=== PATIENT | female | born 1940 | race Caucasian/White ===

== ENCOUNTER → 2019-06-01 | Outpatient (CLI) | payer MEDICARE, SELFPAY | PROVIDERS: PCP Internal Medicine; Visit Provider Internal Medicine | DX: M54.5 Low back pain (principal); M53.3 Sacrococcygeal disorders, not elsewhere classified | CPT/HCPCS: 77002; 20610; Q9966 ==

== ENCOUNTER 2020-01-31 10:38 | Outpatient (CLI) | payer MEDICARE, SELFPAY ==
--- NOTE | ~2020-01-31 | XR_ITS ---
EXAMINATION: XR shoulder LT min 2V EXAM DATE: 01/31/2020 11:01 INDICATION: Shoulder pain, symptoms for years. States fall in 2018. TECHNIQUE: The following left shoulder projections obtained: frontal projection with internal rotatio n, frontal projection with external rotation, Grashey, and scapular Y view (4+ views). Comparison is made to prior examination from 08/21/2018. FINDINGS: No evidence of left shoulder rotator cuff calcific tendinosis. There is moderate glenohume ral, mild acromioclavicular primary osteoarthritis. Sizable bony productive change along the inferio r margin humeral head articular surface. There are no acute fractures or dislocations identified. Th ere is no subcutaneous gas. The soft tissue is unremarkable. There are no radiopaque foreign lizet s. There is no significant interval change. IMPRESSION: Moderate left glenohumeral, mild acromioclavicular joint osteoarthritis. Reviewed, dictated and finalized at location A. IMPRESSION: Moderate left glenohumeral, mild acromioclavicular joint osteoarthr itis.
== END 2020-01-31 10:39 | disposition home or self-care (01) ==
PROVIDERS: PCP Internal Medicine; Visit Provider Internal Medicine
DX: M25.512 Pain in left shoulder (principal)
CPT/HCPCS: 73030

== ENCOUNTER 2020-02-07 14:48 | Outpatient (CLI) | payer MEDICARE, SELFPAY ==
--- NOTE | 2020-02-07 15:15 | ECG_ITS ---
Measurements Intervals [place] Rate: 64 P: 69 VT: 181 QRS: -49 QRSD: 102 T: 73 QT: 417 QTc: 432 Interpretive Statements SINUS RHYTHM LEFT ANTERIOR FASCICULAR BLOCK NONSPECIFIC T-WAVE ABNORMALITY- LATERAL LEADS ABNORMAL ECG Electronically Signed On 02-07-2020 17:14:53 CDT by Andrews Mondragon D.O.
--- NOTE | 2020-03-09 12:04 | WPDHOLTEREM ---
Holter/Event Monitor Holter/Event Monitor Date of procedure: 02/07/20 Procedure Type: 30 day event monitor Indications: Palpitations Conclusion: 1. 30 day event monitor between 02/07/20-03/07/20 There are 35 available transmissions for analysis. 2. Predominant rhythm is sinus rhythm. HR range 50-124 bpm; average HR 74 bpm. 3. There are occasional premature supraventricular complexes with total burden <1%. No supraventricular tachycardia. 4. There are occasional premature ventricular complexes with total burden <1%. There is one episode of ventricular tachycardia at 124 bpm lasting 25 seconds on 02/13/20 at 20:00. 5. No significant pauses greater than 2 seconds. 6. Patient reports 2 episodes of symptoms of lightheadedness and symptom other than listed which demonstrate sinus rhythm at 68-78 bpm.
== END 2020-02-07 14:49 | disposition home or self-care (01) ==
PROVIDERS: PCP Internal Medicine; Visit Provider Internal Medicine
DX: R00.2 Palpitations (principal); I10 Essential (primary) hypertension
CPT/HCPCS: 93005; 93270

== ENCOUNTER 2020-02-15 13:30 | Outpatient (CLI) | payer MEDICARE, SELFPAY ==
--- NOTE | ~2020-02-15 | MM_ITS ---
EXAMINATION: MM screening jennifer BI w anaid HISTORY: Screening mammogram TECHNIQUE: Craniocaudal and mediolateral oblique 3-D tomosynthesis images were obtained and synthetic 2-D images were generated. CAD analysis was submitted and interpreted. COMPARISON: 12/10/2018, 11/05/2017, 10/08/2016 bilateral digital screening mammogram examinations BREAST PARENCHYMAL COMPOSITION: The breasts are heterogeneously dense, which may obscure small masses . FINDINGS: Multiple bilateral benign calcifications. There is no evidence of suspicious mass, calcific ation, or architectural distortion to suggest malignancy in either breast. There has been no suspicio us interval change. IMPRESSION: 1. No mammographic evidence of malignancy. 2. Recommend routine screening mammography in one year. BI-RADS Category 2: Benign finding(s). Reviewed, dictated and finalized at location A.
== END 2020-02-15 13:31 | disposition home or self-care (01) ==
PROVIDERS: PCP Internal Medicine; Visit Provider Internal Medicine
DX: Z12.31 Encounter for screening mammogram for malignant neoplasm of breast (principal)
CPT/HCPCS: 77063; 77067

== ENCOUNTER 2020-02-16 10:30 | Outpatient (CLI) | payer MEDICARE, SELFPAY ==
--- NOTE | 2020-02-16 10:30 | ECHO_ITS ---
Patient Info Name: Ros Carrasco Age: 79 years : 1940 Gender: Female Ht: 66 in Wt: 185 lbs BSA: 2.00 m2 HR: 66 bpm BP: 155 / 86 mmHg Heart Rhythm: Sinus Rhythm Technical Quality: Good Exam Date: 02/16/2020 10:50 AM Exam Location: [facility] Patient Status: Outpatient Admit Date: 02/16/2020 Staff Ordering Physician: Xiao Hanley MD Automotive Service Writer: Rica Mtz RDCS Attending Provider: Xiao Hanley MD Referring Physician: Talon MÁRQUEZ; Exam Type: CA echo doppler color flow Study Info Indications R00.2 - Palpitations I10 - Essential (primary) hypertension Complete two-dimensional, color flow and Doppler transthoracic echocardiogram is performed. Strain analysis performed. History/Risk Factors Hypertension: Yes Dyslipidemia: No Congenital Heart Disease (CHD): No Peripheral Arterial Disease (PAD): No Myocardial Infarction (VT): No Chronic Lung Disease: No Obesity: No Renal Disease: No Coronary Artery Disease (CAD) No Congestive Heart Failure (CHF): No Cardiomyopathy/LV Systolic Dysfunction: No Diabetes Mellitus: No COPD: No Tobacco Use: Never Cerebrovascular Disease: No Family History: Coronary Artery Disease Deep Vein Thrombosis (DVT): None Dialysis: None Frailty Scale (CSHA): 2: Well Cardiac Arrest: No Prior Interventions Pacemaker: No PCI: No CABG: No Valve Surgery: No ICD: No PV Intervention: None Heart Transplant: No Summary 1. Left ventricular chamber dimension is normal. 2. Left ventricular systolic function is normal, estimated at 60-65%. 3. There is mildly increased left ventricular wall thickness. 4. The left ventricular diastolic function is grade I diastolic dysfunction. 5. E/e' 16 is elevated. 6. Global longitudinal strain is normal at -18.0%. 7. Left atrial chamber dimension is mildly enlarged. Left Ventricle E/e' 16 is elevated. Global longitudinal strain is normal at -18.0%. Left ventricular chamber dimension is normal. Left ventricular systolic function is normal, estimated at 60-65%. There is mildly increased left ventricular wall thickness. The left ventricular diastolic function is grade I diastolic dysfunction. Right Ventricle Right ventricular chamber dimension is normal. Right ventricular systolic function is normal. Left Atria Left atrial chamber dimension is mildly enlarged. Right Atria Right atrial chamber dimension is normal. Aortic Valve The aortic valve is trileaflet. There is no aortic valve stenosis. There is no aortic valve regurgitation. Pulmonic Valve There is no pulmonic regurgitation. Mitral Valve There is no mitral valve stenosis. There is no mitral valve regurgitation. Tricuspid Valve There is no tricuspid valve regurgitation. Pericardium/Pleural There is no pericardial effusion. Inferior Vena Cava Normal inferior vena cava with >50% collapse upon inspiration consistent with normal right atrial pressure, 5 mmHg. Aorta The aortic root size at the sinus of Valsalva is normal. Left Ventricular Outflow Tract Name Value Normal LVOT 2D LVOT Diameter
[2020-02-16 11:23] LABS: Hemoglobin A1C 6.1 % (<5.7)
[2020-02-16 11:34] LABS: Alanine Aminotransferase 29 U/L (14-59); Albumin Level 3.7 g/dL (3.4-5.0); Alkaline Phosphatase 91 U/L (46-116); Anion Gap 14.7 mmol/L (7-16); Aspartate Amino Transferase 20 U/L (15-37); Bilirubin,Total 0.7 mg/dL (0.00-1.00); Blood Urea Nitrogen 16 mg/dL (7-18); Calcium 9.2 mg/dL (8.5-10.1); Carbon Dioxide 27 mmol/L (21-32); Chloride 101 mmol/L (98-108); Cholesterol 237 mg/dL (0-200); Estimated Glomerular Filt Rate > 60; Glucose 93 mg/dL (70-99); HDL Direct 59 mg/dL (40-60); LDL Cholesterol Calculated 146 mg/dL (<130); Osmolality Calculated 287 mOsm/kg (285-295); Potassium 4.7 mmol/L (3.5-5.1); Sodium 138 mmol/L (136-145); Total Protein 7.3 g/dL (6.4-8.2); Triglycerides 160 mg/dL (0-150)
[2020-02-19 11:49] LABS: Vitamin D 25 Hydroxy 22 ng/mL (30-100)
== END 2020-02-16 10:31 | disposition home or self-care (01) ==
PROVIDERS: PCP Internal Medicine; Visit Provider Internal Medicine
DX: R73.01 Impaired fasting glucose (principal); E55.9 Vitamin D deficiency, unspecified; E78.2 Mixed hyperlipidemia; R00.2 Palpitations; I10 Essential (primary) hypertension
CPT/HCPCS: 36415; 80053; 80061; 82306; 83036; 93306

== ENCOUNTER 2020-03-20 07:55 | Outpatient (CLI) | payer MEDICARE, SELFPAY ==
--- NOTE | 2020-03-20 | EST_ITS ---
Patient Info Name: Ros Carrasco Age: 79 years : 1940 Gender: Female Ht: 66 in Wt: 179 lbs BSA: 1.97 m2 Exam Date: 03/20/2020 10:34 AM Exam Location: [facility] Stress Patient Status: Outpatient Admit Date: 03/20/2020 Staff Ordering Physician: Andrews Mondragon DO Attending Provider: Andrews Mondragon DO Exercise Technologist: Lisa Hooper RDCS Exercise Physician: Andrews Mondragon DO Exam Type: CA stress suraj w NM Study Info Indications I47.2 - Ventricular tachycardia A regadenoson stress test was performed. History/Risk Factors Hypertension: Yes Dyslipidemia: No Congenital Heart Disease (CHD): No Peripheral Arterial Disease (PAD): No Myocardial Infarction (ND): No Chronic Lung Disease: No Obesity: No Renal Disease: No Coronary Artery Disease (CAD) No Congestive Heart Failure (CHF): No Cardiomyopathy/LV Systolic Dysfunction: No Diabetes Mellitus: No COPD: No Tobacco Use: Never Cerebrovascular Disease: No Family History: Coronary Artery Disease Deep Vein Thrombosis (DVT): None Dialysis: None Frailty Scale (CSHA): 2: Well Cardiac Arrest: No Prior Interventions Pacemaker: No PCI: No CABG: No Valve Surgery: No ICD: No PV Intervention: None Heart Transplant: No Summary 1. 1. Negative lexiscan stress test for ischemic ST changes by ECG criteria. 2. 2. Baseline hypertension. 3. 3. Nuclear scan to follow and will be reported separately. Please correlate with it. 4. 4. Patient informed of the above results. Protocol: Lexiscan Stress ECG Details Stage: REST Duration (min): 10 min : 42 sec HR (bpm): 57 SBP (mmHg): 170 DBP (mmHg): 73 Stage: REST Duration (min): 15 min : 1 sec HR (bpm): 59 SBP (mmHg): 155 DBP (mmHg): 71 Stage: STAGE 1 Duration (min): 0 min : 59 sec HR (bpm): 79 SBP (mmHg): 169 DBP (mmHg): 78 Stage: RECOVERY Duration (min): 1 min : 0 sec HR (bpm): 85 SBP (mmHg): 164 DBP (mmHg): 76 Stage: RECOVERY Duration (min): 2 min : 0 sec HR (bpm): 76 SBP (mmHg): 164 DBP (mmHg): 76 Stage: RECOVERY Duration (min): 3 min : 0 sec HR (bpm): 76 SBP (mmHg): 165 DBP (mmHg): 74 Stage: RECOVERY Duration (min): 3 min : 6 sec HR (bpm): 74 SBP (mmHg): 165 DBP (mmHg): 74 Rest HR: 59 bpm Peak HR: 87 bpm Rest Sys BP: 155 mmHg Peak Sys BP: 169 mmHg Max Pred HR: 139 bpm % Max Pred HR: 63 % Target HR: 118 bpm Max RPP: 14,703 bpm*mmHg Termination Reason: Completed protocol Cardiac Symptoms: Shortness of breath, Stomach discomfort Total Time: 1 min : 0 sec Rest Ventura BP: 71 mmHg Peak Ventura BP: 78 mmHg Total Dose: 0.4 mg Resting ECG Sinus rhythm, PRWP, borderline T wave abnormalty in diffuse leads. Stress ECG No ST changes. Arrhythmias None. Report Signatures
--- NOTE | ~2020-03-20 | NM_ITS ---
EXAMINATION: NM suraj stress w perfusion DATE: 03/20/2020 13:46 INDICATION: Ventricular tachycardia. TECHNIQUE: Rest images were obtained following intravenous administration of 9.1 mCi Tc99m tetrofosmi n (Myoview). The patient was infused intravenously with Lexiscan (regadenoson). Then, 28.6 mCi Tc99m tetrofosmin (Myoview) was administered intravenously, and stress images were obtained. Data was recon structed into short axis and horizontal and vertical long axis SPECT images. Gated SPECT images were also obtained. COMPARISON: None. FINDINGS: There is no definite reversible or fixed perfusion abnormality to suggest ischemia or infar ction. There is no segmental wall motion abnormality. Left ventricular ejection fraction measures > 70%. IMPRESSION: 1. No definite ischemia or infarct. 2. Normal left ventricular ejection fraction measuring >70%. Reviewed, dictated and finalized at location A.
== END 2020-03-20 07:56 | disposition home or self-care (01) ==
PROVIDERS: PCP Internal Medicine; Visit Provider Internal Medicine Cardiovascular Disease
DX: I47.2 Ventricular tachycardia (principal); I10 Essential (primary) hypertension
CPT/HCPCS: 78452; 93017; A9502; J2785

== ENCOUNTER 2020-05-03 01:33 | Outpatient (CLI) | payer MEDICARE, SELFPAY ==
[2020-05-03 19:20] LABS: SARS-CoV-2 RNA PCR Negative
== END 2020-05-03 01:34 | disposition home or self-care (01) ==
LOC: ANHCOVIDDT 01:33
PROVIDERS: PCP Internal Medicine; Visit Provider Internal Medicine Critical Care Medicine
DX: R09.89 Other specified symptoms and signs involving the circulatory and respiratory systems (principal); Z20.828 Contact with and (suspected) exposure to other viral communicable diseases
CPT/HCPCS: 87635; C9803; U0003

== ENCOUNTER 2020-05-05 07:47 | Outpatient (CLI) | payer MEDICARE, SELFPAY ==
--- NOTE | 2020-05-29 06:15 | SLEEP_ITS ---
Split-night Sleep Study DATE OF STUDY: 05/05/2020 ORDERING PHYSICIAN: Andrews Mondragon D.O. REASON FOR STUDY: Loud snoring, concerned related to atrial fibrillation. HISTORY: This patient is an 79-year-old female, 66 inches tall, weighing 184 pounds with a body mass index of 29.7. She reports that she snores very loudly. She wore a monitor at one point, which suggested sleep apnea and Dr. Mondragon wanted her to be tested. She does have a positive family history with her brother having a diagnosis of sleep apnea. She constantly snores loud enough that others complain about it. She does not awaken at night with heartburn, belching, or coughing. She rarely awakens from sleep feeling short of breath. She rarely has trouble sleeping with a cold, never gasps for breath at night, never has breathing problems at night reported to her by others, rarely sweats excessively at night and rarely notices her heart pounding or beating irregularly at night. She frequently falls asleep during the day; however, never involuntarily, or while driving. She does not fall asleep with physical effort. She does not have loss of muscle tone with strong emotion, does not have daytime difficulties due to excessive sleepiness and does not feel paralyzed on waking or falling asleep. She rarely has vivid dreamlike scenes upon awakening or falling asleep. She is never afraid to go to sleep. She does not have nightmares. She rarely remembers her dreams. She does not have racing thoughts, feelings of sadness, depression or anxiety. She occasionally has muscular tension. She rarely notices parts of her body jerking. She does not kick at night. She does not have crawly achy feelings in her legs. She rarely has leg pain at night. She does not have morning jaw pain. She does not grind her teeth at night. She frequently is bothered by pain during the day, rarely is awakened by pain at night, occasionally wakes up feeling stiff in the morning, frequently with sore achy muscles, occasionally with pain in the neck and spine. She is retired. She recently started medications for high blood pressure. She also recently has had diarrhea. Normal bedtime is 09:00 p.m., she uses her phone for an hour or so before falling asleep. She will wake at night 2 or 3 times, go urinate and drink water, stay awake for a few minutes. She falls asleep and wakes in the morning around 6:00 a.m. Her nighttime awakenings occur in the middle of the night and the rehabilitation technician hours. She naps in the afternoon and a short nap may be refreshing. Her sleep is at times disrupted by shoulder tear. She is not planning to have surgery. MEDICAL COMORBIDITIES: Hypertension, paroxysmal atrial fibrillation, and nonsustained ventricular tachycardia. MEDICATIONS: 1. Apixaban 5 mg p.o. b.i.d. 2. Carvedilol 3.125 mg q.12 hours. 3. Vitamin D3 125 mcg daily. 4. Acetaminophen 325 mg q.6 hours p.r.n. pain. HABITS: Quit tobacco 40 years ago. Caffeine, 1 cup per day. Alcohol 6-8 ounces a day. No recreational drugs. DESCRIPTION OF THE STUDY: On the [place] Sleepiness Scale, her score is 8. This test was conducted as a split night attended nocturnal polysomnogram using the [place] multiple channel system including EOG, EEG, submental EMG, EKG, nasal and oral airflow using thermistors and nasal pressure sensors, chest and abdominal belts, body position data and pulse oximetry. The study was scored using CMS guidelines. The diagnostic duration was 164.1 minute, sleep time 121.9 minutes. Sleep efficiency was 74.3%. Sleep latency was prolonged at 35.6 minutes. REM latency was 74.5 minutes. There were 10 awakenings and she spent 6.5 minutes awake after sleep onset. Sleep architecture showed 8.2% stage 1 sleep, 80.7% stage 2 sleep, no sta
== END 2020-05-05 07:48 | disposition home or self-care (01) ==
LOC: ANHCSM 07:47
PROVIDERS: PCP Internal Medicine; Visit Provider Internal Medicine Cardiovascular Disease
DX: G47.10 Hypersomnia, unspecified (principal); U07.1 COVID-19; I48.0 Paroxysmal atrial fibrillation; I47.2 Ventricular tachycardia; I10 Essential (primary) hypertension
CPT/HCPCS: 95811

== ENCOUNTER 2020-07-05 08:02 | Outpatient (RCR) | payer MEDICARE, SELFPAY ==
--- NOTE | 2020-07-05 09:27 | PTOPEVAL ---
Thank you for referring Ros Carrasco to [facility].? The patient is scheduled to be seen for therapy? ____x/week for ___ weeks. Please review, sign, date and return this plan of care NEHEMIAH. I agree with and certify that the following plan of care is medically necessary. Referring Physician Date Admitting Provider: Attending Provider: Xiao Hanley MD Referring Provider: *PT Outpatient Evaluation Start: 07/05/20 08:05 Freq: Status: Active Protocol: Document 07/05/20 08:05 [facility] (Rec: 07/05/20 09:27 [facility] [email or web address]) Therapy Assessment Status Assessment Status Assessment Status Evaluation Evaluation Information Problem Diagnosis L shoulder pain, frozen shoulder Onset 07/03/20 Additional Evaluation Detail quick dash = 31% functionally declined Subjective Information patient reports she has pain Query Text:As Reported By Patient/ in the L shoulder. she reports Family she has been having xie in the shoulder for years. however, she reports the pain has been increased for the past few months. she reports she has decreased ROM of the L shoulder. she reports difficulty reaching up to grab the door handle to get in the house. she reports she has had a cortizone shot in the past. she reports no other shots recently. Prior Level of Function Comments Additional Prior Level of Function patient reports declining Comments mobility and strength in the L shoulder impacting her daily performance of activities including shopping, opneing doors, and performing cleaning around her house. Pain Assessment Timing of Pain Assessment Timing of Pain Assessment Assessment Pain Scale Pain Scale Used Numeric (1 - 10) Self Report Pain Assessment Left Shoulder(s) Reported Pain Level 0 Lowest Pain Intensity 0 Greatest Pain Intensity 7 Pain Score Pain Score 0: Self Report Interventions Used Interventions Used By Clinicians Education,Electrical Stimulation,Exercise,Heat Upper Extremity Range of Motion Scapular/ Shoulder Range of Motion Left Shoulder Flexion - Active 90 Shoulder Flexion - Passive 140 Shoulder Medial Rotation -
--- NOTE | 2020-10-17 06:52 | PCPTNOTE ---
Pt. attended a total of 9 treatment sessions from 07/05/20 to 08/14/20. She has failed to return to the clinic and will be discharged from our care at this time. Esteban Jacinto, MPT
== END 2020-08-14 23:59 | disposition home or self-care (01) ==
LOC: CHSPT 08:02
PROVIDERS: PCP Internal Medicine; Visit Provider Internal Medicine
DX: M25.512 Pain in left shoulder (principal); M75.02 Adhesive capsulitis of left shoulder
CPT/HCPCS: 97014; 97110; 97140; 97161; G0283

== ENCOUNTER 2021-02-01 09:06 | Outpatient (CLI) | payer MEDICARE, SELFPAY ==
--- NOTE | ~2021-02-01 | XR_ITS ---
EXAMINATION: XR chest 2V 02/01/2021 09:42 INDICATION: Hypertension. PROCEDURE: 2 view chest COMPARISON: No prior studies for comparison. FINDINGS: The lungs are clear. The cardiomediastinal silhouette is within normal limits. There are no pleural effusions. There is no pneumothorax suspected. Mild scoliosis. IMPRESSION: 1: NO ACUTE CARDIOPULMONARY DISEASE. Reviewed, dictated and finalized at location B.
[2021-02-01 09:22] LABS: Basophils Absolute Auto 0.04 K/mm3 (0.00-0.10); Basophils Percent Auto 0.5 % (0.0-1.0); Eosinophils Absolute Auto 0.09 K/mm3 (0.02-0.50); Eosinophils Percent Auto 1.1 % (1.0-6.0); Hematocrit 39.9 % (35.0-42.0); Hemoglobin 13.4 g/dL (11.7-13.8); Immature Granulocyte Absolute 0.03 K/mm3 (0.00-0.00); Immature Granulocyte Percent A 0.4 % (0.0-0.0); Lymphocytes Absolute Auto 2.08 K/mm3 (1.10-4.50); Lymphocytes Percent Auto 26.5 % (18.0-42.0); Mean Corpuscular HGB Conc 33.6 g/dL (32.0-36.0); Mean Corpuscular Hemoglobin 31.8 pg (27.0-31.0); Mean Corpuscular Volume 94.8 fL (78.0-102.0); Mean Platelet Volume 8.4 fl (9.2-11.8); Monocytes Absolute Auto 0.69 K/mm3 (0.10-0.90); Monocytes Percent Auto 8.8 % (2.0-11.0); Neutrophils Absolute Auto 4.9 K/mm3 (1.7-7.2); Neutrophils Percent Auto 62.7 % (50.0-70.0); Platelet Count Result 233 K/mm3 (150-420); Red Blood Count 4.21 M/mm3 (4.20-5.40); White Blood Count 7.8 K/mm3 (4.8-10.8)
[2021-02-01 09:23] LABS: Appearance Urine Clear (Clear); Bilirubin Urine Negative (Negative); Blood Urine Negative (Negative); Glucose Urine UA Negative (Negative); Ketones Urine Negative (Negative); Leukocyte Esterase Ur 1+ (Negative); Nitrate Urine Negative (Negative); Protein Urine Negative (Negative); Urobilinogen Urine 0.2 mg/dL (0.2-1.0); pH Urine 5.5 (5.0-8.0)
[2021-02-01 09:28] LABS: Add Urine Microscopic? YES; Color Urine Light Yellow (Yellow); RBC Urine 0-2 /hpf (0-2)
[2021-02-01 09:29] LABS: Bacteria Urine 1+ /hpf; Squamous Epithelial Cell Urine Few /hpf (Few); WBC Urine 0-3 /hpf (0-3)
--- NOTE | 2021-02-01 09:30 | ECG_ITS ---
Measurements Intervals [place] Rate: 54 P: 47 [place]: 186 QRS: -28 QRSD: 105 T: -40 QT: 448 QTc: 426 Interpretive Statements SINUS BRADYCARDIA DELAYED PRECORDIAL R/S TRANSITION ST-T WAVE ABNORMALITY IN ANTEROLATERAL LEADS- CONSIDER ISCHEMIA BASELINE ARTIFACT- II, III, V3 ABNORMAL ECG Electronically Signed On 02-01-2021 10:19:36 CDT by Andrews Mondragon D.O.
[2021-02-01 09:33] LABS: Hemoglobin A1C 5.8 % (<5.7)
[2021-02-01 10:07] LABS: Alanine Aminotransferase 30 U/L (14-59); Albumin Level 3.9 g/dL (3.4-5.0); Alkaline Phosphatase 81 U/L (46-116); Anion Gap 10 mmol/L (8-16); Aspartate Amino Transferase 17 U/L (15-37); Bilirubin,Total 0.8 mg/dL (0.00-1.00); Blood Urea Nitrogen 17 mg/dL (7-18); Calcium 9.4 mg/dL (8.5-10.1); Carbon Dioxide 26 mmol/L (21-32); Chloride 99 mmol/L (98-108); Estimated Glomerular Filt Rate > 60; Glucose 102 mg/dL (70-99); Osmolality Calculated 281 mOsm/kg (285-295); Potassium 4.1 mmol/L (3.5-5.1); Sodium 135 mmol/L (136-145); Total Protein 7.4 g/dL (6.4-8.2)
== END 2021-02-01 09:07 | disposition home or self-care (01) ==
LOC: CHSLAB 09:08
PROVIDERS: PCP Internal Medicine; Visit Provider Internal Medicine
DX: K25.7 Chronic gastric ulcer without hemorrhage or perforation (principal); I10 Essential (primary) hypertension; E78.2 Mixed hyperlipidemia; R73.01 Impaired fasting glucose; R53.82 Chronic fatigue, unspecified
CPT/HCPCS: 36415; 71046; 80053; 81001; 83036; 85025; 93005

== ENCOUNTER 2021-02-05 14:16 | Outpatient (CLI) | payer MEDICARE, SELFPAY ==
--- NOTE | 2021-02-05 14:28 | ECG_ITS ---
Measurements Intervals [place] Rate: 61 P: 62 ID: [id number] QRS: -41 QRSD: 113 T: 46 QT: 421 QTc: 426 Interpretive Statements SINUS RHYTHM LEFT AXIS DEVIATION DELAYED PRECORDIAL R/S TRANSITION NONSPECIFIC T-WAVE ABNORMALITY- LATERAL LEADS BORDERLINE ECG Electronically Signed On 02-05-2021 15:02:27 CDT by Andrews Mondragon D.O.
[2021-02-05 16:05] LABS: Cholesterol 187 mg/dL (0-200); HDL Direct 67 mg/dL (40-60); LDL Cholesterol Calculated 90 mg/dL (<130); Triglycerides 150 mg/dL (0-150)
== END 2021-02-05 14:17 | disposition home or self-care (01) ==
LOC: CHSCARD 14:19
PROVIDERS: PCP Internal Medicine; Visit Provider Internal Medicine Cardiovascular Disease
DX: E78.5 Hyperlipidemia, unspecified (principal); Z01.810 Encounter for preprocedural cardiovascular examination
CPT/HCPCS: 36415; 80061; 93005

== ENCOUNTER 2021-03-05 10:02 | Outpatient (RCR) | payer MEDICARE, SELFPAY ==
--- NOTE | 2021-03-05 11:13 | PTOPEVAL ---
Thank you for referring Ros Carrasco to [facility].? The patient is scheduled to be seen for therapy? __2__x/week for 12 visits. Please review, sign, date and return this plan of care NEHEMIAH. I agree with and certify that the following plan of care is medically necessary. 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 reports that she underwent Query Text:As Reported By Patient/ RTSA on 02/13/21. Pt. has not Family used a sling since 1 week post op. She reports that pain is mild and is not taking pain medication. She is not doing any lifting with the left arm. She is avoiding placing her arm behind her back. She reports that her goal is to gain normal arm strength and mobility. Prior Level of Function Activity Level (Last 3 Months) Occupation retired Hand Dominance Right Activity of Daily Living Ability Independent Indoor/Home Mobility Independent Community Mobility Independent Stairs Ability Independent Functional Cognition (Planning, Shopping Independent , Taking Medications) Cooking Yes Cleaning Yes Laundry Yes Shopping Yes Driving Yes Pain Assessment Timing of Pain Assessment Timing of Pain Assessment Pre-Treatment Pain Scale Pain Scale Used Numeric (1 - 10) Self Report Pain Assessment Left Shoulder(s) Reported Pain Level 1 Pain Description Aching Pain Score Pain Score 1: Self Report Interventions Used Interventions Used By Clinicians Electrical Stimulation, Exercise,Ice Upper Extremity Range of Motion General Upper Extremity Range of Motion Gross Upper Extremity Range of Motion -PROM shoulder flexion 112 Comments degrees -PROM shoulder ER at 20 degrees abduction 35 degrees Upper Extremity Muscle Stren
--- NOTE | 2021-04-12 10:47 | PTOPEVAL ---
Thank you for referring Ros Carrasco to [facility].? The patient is scheduled to be seen for therapy? __1__x/week for 3 visits. Please review, sign, date and return this plan of care NEHEMIAH. I agree with and certify that the following plan of care is medically necessary. Referring Physician Date Admitting Provider: Attending Provider: Gerard Ham, Referring Provider: *PT Outpatient Evaluation Start: 03/05/21 10:05 Freq: Status: Active Protocol: Document 04/12/21 09:13 GUL[facility]AN (Rec: 04/12/21 10:46 GUL[facility] [email or web address]) Therapy Assessment Status Assessment Status Assessment Status Progress Evaluation Information Problem Diagnosis left reverse total shoulder replacement Subjective Information Pt. reports that she is not Query Text:As Reported By Patient/ experiencing pain. She is Family pleased with her mobility, but states that she continues to refrain from any lifting with the left u.e. Pt. reports that she would like to continue therapy in order to improve her strength. Pain Assessment Timing of Pain Assessment Timing of Pain Assessment Pre-Treatment Self Report Self Report Pain Level 0 Pain Score Pain Score 0: Self Report Upper Extremity Range of Motion General Upper Extremity Range of Motion Gross Upper Extremity Range of Motion -left shoulder flexion AROM Comments 131 degrees -left shoulder ER AROM 78 degrees -left shoulder IR AROM 50 degrees Upper Extremity Muscle Strength Testing General Upper Extremity Strength Gross Upper Extremity Strength Comments -left shoulder flexion 3+/5 -left shoulder ER 3/5 -left shoulder IR 4/5 General Exercise General Exercises Exercise Description -pulleys x 3 minutes Query Text:Record Sets, Reps, -variable isometric flexion, Resistance, and Position extension, ER and IR x 12 reps x 5 second holds -bilateral shoulder retraction with resistance green tubing x 25 to neutral -passive stretching into shoulder flexion, IR, and ER x 10 minutes -supine RS at the left shoulder x 1 minute x 2 -supine shoulder flexion AROM
--- NOTE | 2021-05-02 09:51 | PTOPEVAL ---
Thank you for referring Ros Carrasco to [facility].? The patient is scheduled to be seen for therapy? ____x/week for ___ weeks. Please review, sign, date and return this plan of care NEHEMIAH. I agree with and certify that the following plan of care is medically necessary. Referring Physician Date Admitting Provider: Attending Provider: Gerard Ham, Referring Provider: *PT Outpatient Evaluation Start: 03/05/21 10:05 Freq: Status: Active Protocol: Document 05/02/21 08:[address] [facility] (Rec: 05/02/21 09:[address] [facility] [email or web address]) Therapy Assessment Status Assessment Status Assessment Status Discharge Evaluation Information Problem Diagnosis left reverse total shoulder replacement Onset 02/13/21 Additional Evaluation Detail quck dash = 9% functionally declined Subjective Information patient reports she feels Query Text:As Reported By Patient/ good this date. she reports Family no pain in the L shoulder. she reports she has been compliant and consistent with her HEP at home daily. she reports she is back to tending her garden without limitation . Pain Assessment Timing of Pain Assessment Timing of Pain Assessment Assessment Self Report Self Report Pain Level 0 Pain Score Pain Score 0: Self Report Upper Extremity Range of Motion General Upper Extremity Range of Motion Gross Upper Extremity Range of Motion -left shoulder flexion AROM Comments 142 degrees -left shoulder ER AROM 80 degrees -left shoulder IR AROM 50 degrees functional reach behind head to lower cervical spine functional reach behind back to the ipsilateral pocket Upper Extremity Muscle Strength Testing General Upper Extremity Strength Gross Upper Extremity Strength Comments -left shoulder flexion 4/5 -left shoulder ER 4-/5 -left shoulder IR 4/5 General Exercise General Exercises Exercise Description -jordan 5 minutes Query Text:Record Sets, Reps, -shoulder rows x 25 green Resistance, and Position -bilateral shoulder extension with scapular depression x 25 green -resisted left shoulder ER x 25 green
== END 2021-05-02 10:26 | disposition home or self-care (01) ==
LOC: CHSPT 10:02
PROVIDERS: PCP Internal Medicine; Visit Provider Orthopaedic Surgery
DX: Z47.89 Encounter for other orthopedic aftercare (principal); Z96.612 Presence of left artificial shoulder joint
CPT/HCPCS: 97014; 97110; 97161; G0283

== ENCOUNTER 2021-03-27 08:27 | Outpatient (CLI) | payer MEDICARE, SELFPAY ==
--- NOTE | ~2021-03-27 | MM_ITS ---
EXAMINATION: MM screening jennifer BI w anaid HISTORY: Screening TECHNIQUE: Craniocaudal and mediolateral oblique 3-D tomosynthesis images were obtained and synthetic 2-D images were generated. CAD analysis was submitted and interpreted. COMPARISON: Comparison to multiple prior studies sequentially, with oldest reviewed study dated 01/04. BREAST PARENCHYMAL COMPOSITION: Breast composed of scattered areas of fibroglandular density. FINDINGS: There are developing asymmetries in the upper outer quadrant of the left breast which are s lightly more prominent than on prior studies. The right breast is stable without evidence for maligna ncy. There are benign breast calcifications. IMPRESSION: 1. Developing left breast asymmetries. 2. Additional spot compression and mediolateral views with possible follow-up breast ultrasound recom mended. BI-RADS Category 0: Incomplete: Needs additional imaging evaluation. Reviewed, dictated and finalized at location A. IMPRESSION: 1. Developing left breast asymmetries. 2. Additional spot compression and mediolateral views with possible follow-up b reast ultrasound recommended. BI-RADS Category 0: Incomplete: Needs additional imaging evaluation.
== END 2021-03-27 08:28 | disposition home or self-care (01) ==
LOC: CHSIMG 08:28
PROVIDERS: PCP Internal Medicine; Visit Provider Internal Medicine
DX: Z12.31 Encounter for screening mammogram for malignant neoplasm of breast (principal)
CPT/HCPCS: 77063; 77067

== ENCOUNTER 2021-03-29 09:54 | Outpatient (CLI) | payer MEDICARE, SELFPAY ==
--- NOTE | ~2021-03-29 | MMUS_ITS ---
EXAMINATION: MM diagnostic jennifer LT w anaid, US breast LT limited HISTORY: Follow-up left breast asymmetries TECHNIQUE: Additional 3-D tomosynthesis images of the left breast were performed and synthetic 2-D im ages were generated. CAD analysis was submitted and interpreted. High resolution Limited left breast ultrasound was performed. COMPARISON: 03/27/2021 BREAST PARENCHYMAL COMPOSITION: Breast composed of scattered areas of fibroglandular density. FINDINGS: MAMMOGRAPHIC FINDINGS: There are multiple masses/asymmetries centered in the lateral aspect of the left breast which are sec ured by dense overlying fibroglandular tissue. There are benign left breast calcifications. ULTRASOUND: Limited left breast ultrasound: At 12:00 there is an oval hypoechoic mass with internal echogenicity measuring 6 mm, likely benign intramammary lymph node. Recommend follow-up left breast ultrasound in 6 months to assess stability of this mass. At 1:00, 2 cm from the nipple, there is a slightly irregul ar shaped hypoechoic mass with mixed posterior attenuation measuring up to 6 mm. At 3:00, 7 cm from t he nipple there is a 2 mm cyst. IMPRESSION: 1. Slightly irregular shaped hypoechoic left breast mass at 1:00, 2 cm from the nipple. 2. Ultrasound-guided left breast biopsy recommended. BI-RADS category 4, suspicious findings. Reviewed, dictated and finalized at location A. IMPRESSION: 1. Slightly irregular shaped hypoechoic left breast mass at 1:00, 2 cm from the nipple. 2. Ultrasound-guided left breast biopsy recommended. BI-RADS category 4, suspicious findings.
== END 2021-03-29 09:55 | disposition home or self-care (01) ==
LOC: CHSIMG 09:55
PROVIDERS: PCP Internal Medicine; Visit Provider Internal Medicine
DX: R92.8 Other abnormal and inconclusive findings on diagnostic imaging of breast (principal)
CPT/HCPCS: 76642; 77061; 77065; G0279

== ENCOUNTER 2021-08-06 08:50 | Outpatient (CLI) | payer MEDICARE, SELFPAY ==
--- NOTE | ~2021-08-06 | DEXA_ITS ---
Bone Density Report Name: THAI WOODARD Age: 81 Sex: Female Ethnicity: White Date of : 1940 Indication: postmenopausal; screening for osteoporosis; height loss; Referring Provider: Xiao Hanley Study: Bone densitometry was performed. Exam Date: August 06, 2021 Accession number: [id number] Bone Density: Region BMD T-score Z-score Classification AP Spine(L1, L2, L3) 0.953 -0.6 2.1 Normal Femoral Neck (Left) 0.731 -1.1 1.4 Osteopenia Total Hip (Left) 0.832 -0.9 1.3 Normal Femoral Neck (Right) 0.697 -1.4 1.1 Osteopenia Total Hip (Right) 0.830 -0.9 1.3 Normal Femoral Neck Mean 0.714 -1.2 1.2 Osteopenia Total Hip Mean 0.831 -0.9 1.3 Normal World Health Organization criteria for BMD impression classify patients as: Normal (T-score at or above -1.0), Osteopenia (T-score between -1.0 and -2.5), or Osteoporosis (T-score at or below -2.5). 10-year Fracture Risk(1): Major Osteoporotic Fracture 12% Hip Fracture 3.0% Reported Risk Factors: [place] (), Neck BMD=0.697, BMI=30.8 (1) FRAX(R) Version 3.08. Fracture probability calculated for an untreated patient. Fracture probability may be lower if the patient has received treatment. Clinical Information Provided by Patient: Has used the following medications: HRT (i.e. estrogen/hormone therapy), Vitamin D Patient maximum height was 66 Menopause Age: 48 No regular weight bearing exercise Drinks caffeinated beverages Onset of menses at age 9 Number of children 0 Impression: The patient has low bone mass, based on the Right Femoral Neck T-score. Discussion: BONE DENSITY IS LOW AT ONE OR MORE SKELETAL SITES. This patient's lowest T-score is low at one or more skeletal sites. It meets the World Health Organization's (WHO) criteria for ?low bone mass? (T-score between -1.0 and -2.5). The patient's 10-year risk of fracture as calculated by FRAX is less than the threshold where pharmacological therapy is recommended by the National Osteoporosis Foundation (NOF). However, all treatment decisions require clinical judgment and consideration of individual patient factors, including patient preferences, comorbidities, previous drug use, risk factors not captured in the FRAX model (e.g., frailty, falls, vitamin D deficiency, increased bone turnover, interval significant decline in bone density) and possible under or overestimation of fracture risk by FRAX. The patient should follow a healthful lifestyle (good nutrition with adequate calcium and vitamin D, and appropriate weight-bearing exercise). Follow-Up: Consider repeating this study in 2 to 3 years to reassess this patient's status, or sooner if there is some new clinical indication. Reported by: Dr. Reynaldo Cruz on 08/06/2021 10:47:00 AM.
== END 2021-08-06 08:51 | disposition home or self-care (01) ==
LOC: CHSIMG 08:51
PROVIDERS: PCP Internal Medicine; Visit Provider Internal Medicine
DX: M81.0 Age-related osteoporosis without current pathological fracture (principal)
CPT/HCPCS: 77080

== ENCOUNTER 2022-01-28 09:54 | Outpatient (CLI) | payer MEDICARE, SELFPAY | END 2022-01-28 09:55 | disposition home or self-care (01) | PROVIDERS: PCP Internal Medicine; Visit Provider Internal Medicine | DX: R42 Dizziness and giddiness (principal) | CPT/HCPCS: 99199 ==

== ENCOUNTER 2022-02-05 12:39 | Outpatient (CLI) | payer MEDICARE, SELFPAY ==
--- NOTE | ~2022-02-05 | US_ITS ---
EXAMINATION: US carotid duplex BI DATE: 02/05/2022 14:25 INDICATION: Vertigo and dizziness. TECHNIQUE: Grayscale, color Doppler, and pulsed Doppler images of the cervical carotid arteries were obtained. The degree of vessel stenosis is placed in one of the following categories: normal, <50%, 5 0-69%, >=70% but less than near-occlusion, near-occlusion, or total occlusion. Note that percent sten osis relative to normal distal artery lumen diameter is indirectly measured from velocity measurement s as described by John, et al. Radiology 2003; 229:340-346. COMPARISON: None. FINDINGS: RIGHT: The right common carotid artery (CCA) peak systolic velocity (PSV) is 89 cm/s. The right internal car otid artery (ICA) PSV is 134 cm/s. The right ICA end-diastolic velocity (EDV) is 26 cm/s. The right I CA/CCA PSV ratio is 1.5. Grayscale and color Doppler images including secondary Doppler criteria yiel d an estimate of <50% diameter reduction from plaque in the ICA. The external carotid artery (ECA) PS V is 113 cm/s. There is antegrade flow in the right vertebral artery. LEFT: The left CCA PSV is 92 cm/s. The left ICA PSV is 109 cm/s. The left ICA EDV is 30 cm/s. The left ICA/ CCA PSV ratio is 1.2. Grayscale and color Doppler images yield an estimate of <50% diameter reduction from plaque in the ICA. The ECA PSV is 107 cm/s. There is antegrade flow in the left vertebral arter y. IMPRESSION: 1. <50% stenosis in the right internal carotid artery. 2. <50% stenosis in the left internal carotid artery. Reviewed, dictated and finalized at location A.
== END 2022-02-05 12:40 | disposition home or self-care (01) ==
LOC: CHSIMG 12:41
PROVIDERS: PCP Internal Medicine; Visit Provider Internal Medicine
DX: R42 Dizziness and giddiness (principal)
CPT/HCPCS: 93880

== ENCOUNTER 2022-02-09 10:52 | Outpatient (CLI) | payer MEDICARE, SELFPAY ==
--- NOTE | ~2022-02-09 | MR_ITS ---
EXAMINATION: MR brain/brain stem wo con DATE: 02/09/2022 12:19 INDICATION: Dizziness. TECHNIQUE: Magnetic resonance imaging (MRI) of the brain and brainstem was performed without intraven ous contrast. COMPARISON: None. FINDINGS: There are scattered areas of nonspecific increased T2-weighted signal intensity in the cere bral white matter. There is no intracranial hemorrhage, acute infarction, or abnormal intracranial ma ss lesion. The ventricles are normal in size. There is mild mucosal thickening in the paranasal sinus es. There are likely changes of ocular lens replacement surgeries. The mastoid air cells are normal. IMPRESSION: 1. Moderate nonspecific cerebral white matter disease, which likely represents chronic small vessel i schemic disease. Reviewed, dictated and finalized at location A. IMPRESSION: 1. Moderate nonspecific cerebral white matter disease, which likely represents chronic small vessel ischemic disease.
== END 2022-02-09 10:53 | disposition home or self-care (01) ==
LOC: CHSIMG 10:54
PROVIDERS: PCP Internal Medicine; Visit Provider Internal Medicine
DX: R42 Dizziness and giddiness (principal)
CPT/HCPCS: 70551

== ENCOUNTER 2022-03-05 13:57 | Outpatient (RCR) | payer MEDICARE, SELFPAY ==
--- NOTE | 2022-03-05 14:50 | PTOPEVAL ---
Thank you for referring Ros Carrasco to [facility][Note 3].? The patient is scheduled to be seen for therapy? __2__x/week for 10 visits. Please review, sign, date and return this plan of care NEHEMIAH. I agree with and certify that the following plan of care is medically necessary. Referring Physician Date Admitting Provider: Attending Provider: Xiao Hanley MD Referring Provider: *PT Outpatient Evaluation Start: 03/05/22 14:10 Freq: Status: Active Protocol: Document 03/05/22 14:10 [facility] (Rec: 03/05/22 14:49 [facility] [email or web address]) Therapy Assessment Status Assessment Status Assessment Status Evaluation Evaluation Information Problem Diagnosis hip pain, impaired balance Onset 01/03/22 Subjective Information Pt. reports a couple months Query Text:As Reported By Patient/ ago she developed pain in the Family right low back. She reports pain is now radiating into the buttock. She reports that standing for long periods of time will increase her pain. She denies any recent xray. She states that she has felt that her balance has been a little impaired, but is getting better. She reports that the pain in her buttock is a bigger problem than her balance. She denies any recent falls. She reports that her goal for therapy is to reduce the pain in her hip and feel more steady when walking. Prior Level of Function Activity Level (Last 3 Months) Occupation retired Hand Dominance Right Activity of Daily Living Ability Independent Indoor/Home Mobility Independent Community Mobility Independent Stairs Ability Independent Functional Cognition (Planning, Shopping Independent , Taking Medications) Cooking Yes Cleaning Yes Laundry Yes Shopping Yes Driving Yes Pain Assessment Pain Scale Pain Scale Used Numeric (1 - 10) Self Report Pain Assessment Right Buttock(s) Reported Pain Level 6 Greatest Pain Intensity 7 Pain Aggravating Factors Sitting,Walking,Weight Bearing /Standing Pain Score Pain Score
== END 2022-04-08 15:28 | disposition home or self-care (01) ==
LOC: CHSPT 13:57
PROVIDERS: PCP Internal Medicine; Visit Provider Internal Medicine
DX: M25.551 Pain in right hip (principal); R42 Dizziness and giddiness; R26.9 Unspecified abnormalities of gait and mobility
CPT/HCPCS: 97014; 97110; 97140; 97161; G0283

== ENCOUNTER 2022-10-02 12:34 | Outpatient (CLI) | payer MEDICARE, SELFPAY ==
--- NOTE | ~2022-10-02 | DEXA_ITS ---
Bone Density Report Name: THAI WOODARD Age: 82 Sex: Female Ethnicity: White Date of : 1940 Indication: postmenopausal; screening for osteoporosis; parental hip fracture; height loss; Referring Provider: Xiao Hanley Study: Bone densitometry was performed. Exam Date: October 02, 2022 Accession number: [id number] Bone Density: Region BMD T-score Z-score Classification AP Spine(L1, L2, L4) 1.019 -0.1 2.7 Normal Femoral Neck (Left) 0.701 -1.3 1.2 Osteopenia Total Hip (Left) 0.848 -0.8 1.5 Normal Femoral Neck (Right) 0.691 -1.4 1.1 Osteopenia Total Hip (Right) 0.849 -0.8 1.5 Normal Femoral Neck Mean 0.696 -1.4 1.1 Osteopenia Total Hip Mean 0.849 -0.8 1.5 Normal World Health Organization criteria for BMD impression classify patients as: Normal (T-score at or above -1.0), Osteopenia (T-score between -1.0 and -2.5), or Osteoporosis (T-score at or below -2.5). 10-year Fracture Risk(1): Major Osteoporotic Fracture 22% Hip Fracture 13% Reported Risk Factors: [place] (), Neck BMD=0.691, BMI=31.8, parental fracture (1) FRAX(R) Version 3.08. Fracture probability calculated for an untreated patient. Fracture probability may be lower if the patient has received treatment. Clinical Information Provided by Patient: Parent has had a hip fracture Has used the following medications: HRT (i.e. estrogen/hormone therapy), Vitamin D Patient maximum height was 66 Menopause Age: 47 No regular weight bearing exercise Drinks caffeinated beverages Onset of menses at age 9 Number of children 0 Impression: The patient has low bone mass, based on the Right Femoral Neck T-score. The patient has risk factors, including: parental hip fracture. Discussion: BONE DENSITY IS LOW AT ONE OR MORE SKELETAL SITES. This patient's lowest T-score is low at one or more skeletal sites. It meets the World Health Organization's (WHO) criteria for ?low bone mass? (T-score between -1.0 and -2.5). The patient's 10-year risk of fracture as calculated by FRAX is less than the threshold where pharmacological therapy is recommended by the National Osteoporosis Foundation (NOF). However, all treatment decisions require clinical judgment and consideration of individual patient factors, including patient preferences, comorbidities, previous drug use, risk factors not captured in the FRAX model (e.g., frailty, falls, vitamin D deficiency, increased bone turnover, interval significant decline in bone density) and possible under or overestimation of fracture risk by FRAX. The patient should follow a healthful lifestyle (good nutrition with adequate calcium and vitamin D, and appropriate weight-bearing exercise). Follow-Up: Consider repeating this study in 2 to 3 years to reassess this patie
== END 2022-10-02 12:35 | disposition home or self-care (01) ==
LOC: CHSIMG 12:37
PROVIDERS: PCP Internal Medicine; Visit Provider Internal Medicine
DX: Z78.0 Asymptomatic menopausal state (principal); M85.89 Other specified disorders of bone density and structure, multiple sites
CPT/HCPCS: 77080

== ENCOUNTER 2023-01-15 08:18 | Outpatient (CLI) | payer MEDICARE, SELFPAY ==
--- NOTE | ~2023-01-15 | CT_ITS ---
EXAMINATION: CT sinus wo con DATE: 01/15/2023 08:41 INDICATION: Chronic sinusitis TECHNIQUE: Computed tomography (CT) of the paranasal sinuses was performed without intravenous contra st. The dose-length product was 286.08 mGy-cm. Automated exposure control and iterative reconstructio n technique were employed. COMPARISON: None FINDINGS: There is mucosal thickening of the maxillary, ethmoid, sphenoid and frontal sinuses. Rightw kelly nasal septal deviation. Ostiomeatal units are patent. Mastoids are pneumatized. IMPRESSION: 1. Moderate pansinusitis. Reviewed, dictated and finalized at location B. IMPRESSION: 1. Moderate pansinusitis.
== END 2023-01-15 08:19 | disposition home or self-care (01) ==
LOC: CHSIMG 08:19
PROVIDERS: PCP Internal Medicine; Visit Provider Internal Medicine
DX: J32.4 Chronic pansinusitis (principal)
CPT/HCPCS: 70486

== ENCOUNTER 2023-06-03 12:00 | Outpatient (CLI) | payer MEDICARE, SELFPAY ==
[2023-06-03 12:18] VITALS: BP 136/67; PULSE 68; RESP 14; TEMP 36.6; O2SAT 100; BMI 32.5
[2023-06-03] MEDS: DENOSUMAB 60 MG/ML SYRINGE SUB-Q (12:39)
--- NOTE | 2023-06-03 12:45 | PC.NURSE ---
Patient here for Prolia injection. Education given. All concerns answered. Prolia injection administered. See MAR. Tolerated well. Safe exit of hospital per self/ambulatory.
== END 2023-06-03 12:01 | disposition home or self-care (01) ==
LOC: CHSTREATRM 12:05
PROVIDERS: PCP Internal Medicine; Visit Provider Internal Medicine
DX: M81.0 Age-related osteoporosis without current pathological fracture (principal)
CPT/HCPCS: 96372; J0897

== ENCOUNTER 2023-10-01 13:48 | Outpatient (CLI) | payer MEDICARE, SELFPAY ==
--- NOTE | ~2023-10-01 | MM_ITS ---
EXAMINATION: MM screening jennifer BI w anaid HISTORY: Screening mammogram TECHNIQUE: Craniocaudal and mediolateral oblique 3-D tomosynthesis images were obtained and synthetic 2-D images were generated. CAD analysis was submitted and interpreted. COMPARISON: 03/29/2021 diagnostic left mammogram and limited left breast ultrasound 03/27/2021, 02/15/2020, 12/10/2018 bilateral screening mammogram examinations BREAST PARENCHYMAL COMPOSITION: There are scattered areas of fibroglandular density. FINDINGS: Chronic stable fibroglandular asymmetry. Multiple bilateral benign calcifications are again noted. There is no evidence of suspicious mass, calcification, or architectural distortion to sugges t malignancy in either breast. There has been no suspicious interval change. IMPRESSION: 1. Benign findings. No mammographic evidence of malignancy. 2. Recommend routine screening mammography in one year. BI-RADS Category 2: Benign finding(s). Reviewed, dictated and finalized at location A. OLIDS MANAGEMENT TECHNICIAN
== END 2023-10-01 13:49 | disposition home or self-care (01) ==
PROVIDERS: PCP Internal Medicine; Visit Provider Internal Medicine
DX: Z12.31 Encounter for screening mammogram for malignant neoplasm of breast (principal)
CPT/HCPCS: 77063; 77067

== ENCOUNTER 2023-12-18 08:41 | Outpatient (CLI) | payer MEDICARE, SELFPAY ==
[2023-12-18] MEDS: DENOSUMAB 60 MG/ML SYRINGE SUB-Q (08:56)
--- NOTE | 2023-12-18 08:56 | PC.NURSE ---
Patient here for Prolia shot. Tolerated well to right upper arm sub q, band aid applied. Denies any questions. Left floor ambulatory.
== END 2023-12-18 08:42 | disposition home or self-care (01) ==
PROVIDERS: PCP Internal Medicine; Visit Provider Internal Medicine
DX: M81.0 Age-related osteoporosis without current pathological fracture (principal)
CPT/HCPCS: 96372; J0897

== ENCOUNTER 2024-10-20 12:16 | Outpatient (CLI) | payer MEDICARE, SELFPAY ==
--- NOTE | ~2024-10-20 | MM_ITS ---
EXAMINATION: MM screening [facility] BI w anaid HISTORY: Screening mammogram TECHNIQUE: Craniocaudal and mediolateral oblique 3-D tomosynthesis images were obtained and synthetic 2-D images were generated. CAD analysis was submitted and interpreted. COMPARISON: 10/01/2023, 03/29/2021, 03/27/2021 BREAST PARENCHYMAL COMPOSITION:Not Dense. There are scattered areas of fibroglandular density. FINDINGS: No suspicious mass, calcification, or architectural distortion are identified in either xenia ast to suggest malignancy. There has been no suspicious interval change. IMPRESSION: No mammographic evidence of malignancy. Recommend routine screening mammography in one year. BI-RADS Category 1: Negative Reviewed, dictated and finalized at location . MBLY MACHINE FEEDER
--- OUTSIDE RECORDS SUMMARY | 2024-10-20 13:52 | XMS_ITS | Data Portability ---
Author Organization [facility], [address] [facility] ([place]) Address [address] [place] [address] Care Team Providers Care Service Dispatcher Name Role Phone SENG PERSAUD Primary Care Provider [phone] Assessment Encounter Date Assessment Date Assessment LastModified by Organization Details LastModified Time 06/29/2024 06/29/2024 Ros Carrasco was seen today for hearing aid issue. Resound links [phone] on the left and [phone] on the right medium power domes Both are out of warranty Last hearing test August 07, 2022. Today's appointment she stated the left mold tooling technician was not functioning. Visual inspection showed it to be hanging on by a thread. Nickel Plant Operator was replaced. Hearing aids were returned to patient. There was a $75 charge for the mold tooling technician. RECOMMENDATION S: 1. Patient paid $75 upfront for the replacement mold tooling technician. 2. Patient will contact me regarding getting upgraded hearing aid technology and setting up an appointment for hearing test and hearing aid fitting. Not available 06/29/2024 15:25:26 Plan of Treatment Reminders Order Date Submit Date Provider Last Modified By Organization Details Last Modified Time Details Appointments Establis hed Patient 30.EST 2024 02:00P M Jinny Maillet Not available Not available Not available Lab None recorded . Referral None recorded . Procedures None recorded . Surgeries None recorded . Imaging None recorded . Medication Orders None recorded . Patient TargetsNo targets recorded. Patient InstructionsNo instructions recorded. Reason for Referral None Reported. Problems Name Problem SNOMED Code Status Onset Date Resolution Date Notes Provider Name and Address Organization Details Recorded Time Sensorineural hearing loss of bilateral ears [id number] Active 2023 Jinny Gan, AuD [address] [place] [address], [id number] , [place] [facility] 15:23:59 Problem Notes None recorded. Procedures Surgical History Date Name Laterality Status Provider Name and Address Organization Details Recorded Time Colonoscopy with biopsy completed Not Available Health Note 10/19/2024 15:33:27 Removal of gallbladder completed Not Available Health Note 10/19/2024 15:33:27 Imaging Results None recorded. Procedure Notes None recorded. Medical Equipment None Reported. Medications Name Sig Start Date Stop Date Status Note LastModified by Organization Details LastModified Time fluorouracil 5 % topical cream APPLY TOPICALLY TO AFFECTED AREA A SUFFICIENT AMOUNT TO COVER THE LESIONS TWICE A DAY active Not Available Not Available Not Available prednisolone acetate 1 % eye drops,suspen william INSTILL 1 DROP INTO AFFECTED EYE TWICE A DAY active Not Available Not Available No t Available pravastatin 10 mg tablet TAKE 1 TABLET BY MOUTH EVERY DAY active Not Available Not Available No t Available gentamicin 0.3 % eye drops INSTILL 1 DROP INTO AFFECTED EYE EVERY 4 HOURS active Not Available Not Available No t Available gentamicin 0.1 % topical cream APPLY SPARINGLY TO AFFECTED AREA TWICE A DAY active Not Available Not Available No t Available metoprolol succinate ER 25 mg tablet,exten ded release 24 hr TAKE 1 TABLET BY MOUTH EVERY DAY active Not Available Not Available No t Available levofloxacin 500 mg tablet TAKE 1 TABLET BY MOUTH EVERY 24 HOURS active Not Available Not Available No t Available methylpredni solone 4 mg tablets in a dose pack TAKE BY MOUTH DIRECTED PER PACKAGE INSTRUCTION S active Not Available Not Available No t Available losartan 100 mg tablet TAKE 1 TABLET BY MOUTH EVERY DAY active Not Available Not Available No t Available doxycycline hyclate 100 mg tablet TAKE 1 TABLET BY MOUTH TWICE A DAY active Not Available Not Available No t Available solifenacin 10 mg tablet TAKE 1 TABLET BY MOUTH EVERY DAY active Not Available Not Available No t Available Vitals None Recorded Social History Question Answer Notes LastModified by Organizat ion Details LastModified Time Tobacco Smoking Status Former Smoker Not Available Health Note 10/19/2024 15:33:28 Do You Have An Advance Directive? Yes [email or web address] Information not available 10/19/2024 What Is Your Level Of Alcohol Consumption? Occasional [email or web address] Information not available 10/19/2024 How Many Times Per Week Do You Consume Alcohol? 3-4 Times Per Week [email or web address] Information not available 10/19/2024 What Is Your Level Of Caffeine Consumption? Occasional [email or web address] Information not available 10/19/2024 What Is Your Code Status? Other [email or web address] Information not available 10/19/2024 Are You Currently Employed? 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 3-4 Times Per Week [email or web address] Information not available 10/19/2024 When Did You Quit Smoking? 1987 [email or web address] Information not available 10/19/2024 What Was The Date Of Your Most Recent Tobacco Screening? 10/26/2024 [email or web address] Information not available 10/19/2024 What Is Your Relationship Status? [email or web address] Information not available 10/19/2024 Do You Use Any Illicit Or Recreational Drugs? No [email or web address] Information not available 10/19/2024 Sex: Unknown Functional Status Question Answer Note LastModified by Organizat ion Details LastModified Time What is your exercise level? Occasional [email or web address] Information not available 10/19/2024 Mental Status None recorded. Family History Relationship Description Onset Age of this Age Resolved Age Notes LastModified by Organization Details LastModified Time Father No current problems or disability [email or web address] Not available 10/19 15:33:26 Mother No current problems or disability [email or web address] Not available 10/19 15:33:26 Medical History Condition Response Diabetes N Anxiety Disorder N Bleeding Disorder N Attention-deficit Hyperactivity Disorder N High Blood Pressure N Arthritis N Hyperlipidemia N Cancer N Stroke N Thyroid Problems N Asthma N Depression N COPD N Anemia N Seizures N Heart Disease N Fibromyalgia N Osteoporosis N Kidney Disease N Gynecological HistoryNo gynecological history recorded. Obstetrics History GPAL:G 0 P 0 0 0 0 Past Encounters Encounter ID Performer Location Encounter Start Date Encounter Closed Date Diagnosis/Indication Diagnosis SNOMED-CT Code Diagnosis ICD10 Code Diagnosis Note [id number] [facility] [address] [place] [address] 06/29/2024 14:02:50 06/29/2024 15:42:52 Sensorineural hearing loss of bilateral ears 229937415 H90.3 Health Concerns Section Related Observation LastModified by Organization Detai ls LastModified Time None Recorded Concern Status LastModified by Organization Details LastModified Time None Recorded Advance Directives Directive Y: Payers Encounter Date Sequence Insurance Name Policy Number Policy Rodrigues Covered Member ID Rodrigues Member ID Guarantor Name 06/29/2024 1 [facility] (MEDICARE REPLACEMENT/A DVANTAGE - PPO) [id number] Ros Carrasco [id number] Ros Carrasco 06/29/2024 2 MEDICARE-OR (MEDICARE) Ros Carrasco [id number] Ros Carrasco OBGyn Episode No OBEpisode recorded.
--- OUTSIDE RECORDS SUMMARY | 2024-10-20 13:52 | XMS_ITS | Clinical Summary ---
Author Organization [facility] Medical [facility] Building [facility] Address [address] [place] [address] Care Team Providers Care Student Development Specialist Name Role Phone Xiao Hanley MD Primary Care Provider [phone] Daisy Swartz Unavailable [phone] Allergies No known active allergies Medications losartan-hydroC HLOROthiazide (HYZAAR) 50-12.5 mg per tablet Take 1 tablet by mouth daily 1 Active metoprolol XL (TOPROL-XL) 25 mg extended release tablet Take 25 mg by mouth daily 1 Active pravastatin (PRAVACHOL) 10 mg tablet Take 10 mg by mouth daily 1 Active cholecalciferol (VITAMIN D-3) 2000 unit tablet Take 1 tablet (2,000 Units total) by mouth daily 30 tablet 1 Active aspirin 81 mg chewable tablet Take 1 tablet (81 mg total) by mouth 2 (two) times a day for 14 days 28 tablet 1 Active senna-docusate (PERICOLACE) 8.6-50 mg 1-2 times daily as needed for constipation 60 tablet 1 1 Active UNABLE TO FIND Vitamin B 12 Ac tive Active Problems Problem Noted Date Diagnosed Date HTN (hypertension) 02/14/2021 Chest pain 02/14/2021 Biceps tendinitis of left upper extremity 2020 Rotator cuff arthropathy of left shoulder 2020 Surgical History Surgery Date Site/Laterality Comments CHOLECYSTECTOMY SHOULDER SURGERY BREAST BIOPSY 08/25/1996 - 08/24/1997 Left Benign Medical History Medical History Date Comments Hypertension Delayed emergence from general anesthesia Sleep apnea wears cpap Family History Medical History Relation Name Comments Cancer Maternal Grandfather Relation Name Status Comments Maternal Grandfather Social History Tobacco Use Types Packs/Day Years Used Date Smoking Tobacco: Former Cigarettes 1.5 20 1 964 - 1983 Smokeless Tobacco: Never Alcohol Use Standard Drinks/Week Comments Yes 0 (1 standard drink = 0.6 oz pur e alcohol) AUDIT-C Answer Date Recorded Q1: How often do you have a drink containing alc ohol? 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 Sexual Orientation Not on file Obstetrics History Last Filed Vital Signs Vital Sign Reading Time Taken Comments Blood Pressure 157/82 03/28/2021 1:50 PM CDT Pulse 65 03/28/2021 1:50 PM CDT Temperature 36.1 C (96.9 F) 02/14/2021 11:00 AM CDT Respiratory Rate 18 02/14/2021 11:00 AM CDT Oxygen Saturation 98% 02/14/2021 11:00 AM CDT Inhaled Oxygen Concentration - - Weight 83.9 kg (185 lb) 04/16/2021 10:25 AM CDT Height 167.6 cm (5' 6 ) 04/16/2021 10:25 AM CDT Body Mass Index 29.86 04/16/2021 10:25 AM CDT Plan of Treatment Health Maintenance Due Date Last Done Comments Depression Screening 1938 DTaP/Tdap/Td Vaccine (1 - Tdap) 1949 Hepatitis B Screening 1956 Well Visit 65+ 2003 Pneumococcal vaccine 65+ (2 of 2 - PCV) 05/28/2014 05/28/2013 Fall Risk Assessment 02/13/2022 02/13/2021 Influenza Vaccine (#1) 2024 9, 06/02/2018, 06/12/2015, Additional history exists Zoster Vaccine Completed 05/29/2019, 03/2019, 02/12/2013 Medical Devices Implanted Type Area Marketing Area Manager Device Identifier Shelf Expiration Date Model / Serial / Lot Ar-9582-20 Modular Post For Augmented Mgs Baseplate 20mm Implanted:Qty: 1 on 02/13/2021 by Gerard Ham MD at [facility] Left: Shoulder [employer] [id number] 02/21/2025 AR-9582-20 / N/A / [id number] Description:[facility] 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 200.00 NO CHARGE CODE ASSIGNED AT THIS TIME [employer] Pc-[id number] Baseplate 24mm 10 Deg Full Augment Oblique - [id number] Implanted:Qty: 1 on 02/13/2021 by Gerard Ham MD at [facility] Left: Shoulder [employer] 08/24/2025 AR-9580-24 10 [id number] [employer] Mp-[id number] s Revers 5.5mm 32mm Lock Modular Glenoid Peripheral Screw - [id number] Implanted:Qty: 1 on 02/13/2021 by Gerard Ham MD at [facility] Left: Shoulder [employer] 10/22/2024 AR-9563-32 / / [id number] [employer] Ar-9563-365.5mm 36mm Lock Peripheral Screw Bone Sterile - [id number] Implanted:Qty: 1 on 02/13/2021 by Gerard Ham MD at [facility] Left: Shoulder [employer] 09/24/2024 AR-9563-36 / / [id number] [employer] Wb-0413-6508-Inf univers Revers Biosync 39mm 24mm Glenosphere Taper Baseplate - [id number] Implanted:Qty: 1 on 02/13/2021 by Gerard Ham MD at [facility] Left: Shoulder [employer] 02/21/2025 AR-9564-24 39-INF / / [id number] [employer] Ar-9503m-03 Univers Revers 39mm Shoulder +3mm Medium Insert Humeral Sterile - [id number] Implanted:Qty: 1 on 02/13/2021 by Gerard Ham MD at [facility] Left: Shoulder [employer] 06/24/2025 AR-9503M-0 3 / .[id number] [employer] Ms-[id number]-[id number] nivers Revers 39mm Suture Shoulder Left +2 Cup Humeral - [id number] Implanted:Qty: 1 on 02/13/2021 by Gerard Ham MD at [facility] Left: Shoulder [employer] 01/22/2025 AR-9502F-3 9LCPC / / [id number] [employer] Ar-9501-08p Arthrex Univers Revers Shoulder 8 Stem Humeral Sterile - [id number] Implanted:Qty: 1 on 02/13/2021 by Gerard Ham MD at [facility] Left: Shoulder [employer] 05/24/2025 AR-9501-08 P / / [id number] Insurance MEDICARE SOLUTIONS MEDICARE SOLUTIONS MEDICARE SOLUTIONS Advance Directives For more information, please contact: [phone] * Full Code (Latest Code Status on File) Date Activated Date Inactivated Comments 02/13/2021 3:15 PM 02/14/2021 7:07 PM Care Teams Student Development Specialist Relationship Specialty Start Date End Date Xiao Hanley MD [address] [place] [address] PCP - General Internal Medicine 02/04/20 Daisy Swartz PA [address] [place] [address] Physician Incident Engineer Orthopedic Surgery 02/14/21
--- OUTSIDE RECORDS SUMMARY | 2024-10-20 13:52 | XMS_ITS | Referral Summary ---
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 200.00 NO CHARGE CODE ASSIGNED AT THIS TIME [employer] Uk-9603-1799 Baseplate 24mm 10 Deg Full Augment Oblique - [id number] Implanted:Qty: 1 on 02/13/2021 by Gerard Ham MD at [facility] Left: Shoulder [employer] 08/24/2025 AR-9580-24 10 [id number] [employer] Nc-6725-02nygsty s Revers 5.5mm 32mm Lock Modular Glenoid Peripheral Screw - [id number] Implanted:Qty: 1 on 02/13/2021 by Gerard Ham MD at [facility] Left: Shoulder [employer] 10/22/2024 AR-9563-32 / / [id number] [employer] Ar-9563-365.5mm 36mm Lock Peripheral Screw Bone Sterile - [id number] Implanted:Qty: 1 on 02/13/2021 by Gerard Ham MD at [facility] Left: Shoulder [employer] 09/24/2024 AR-9563-36 / / [id number] [employer] Ff-4444-9753-Inf univers Revers Biosync 39mm 24mm Glenosphere Taper Baseplate - [id number] Implanted:Qty: 1 on 02/13/2021 by Gerard Ham MD at [facility] Left: Shoulder [employer] 02/21/2025 AR-9564-24 39-INF / / [id number] [employer] Ar-9503m-03 Univers Revers 39mm Shoulder +3mm Medium Insert Humeral Sterile - [id number] Implanted:Qty: 1 on 02/13/2021 by Gerard Ham MD at [facility] Left: Shoulder [employer] 06/24/2025 AR-9503M-0 3 / / [id number] [employer] Fz-3750r-64ntjfy nivers Revers 39mm Suture Shoulder Left +2 Cup Humeral - [id number] Implanted:Qty: 1 on 02/13/2021 by Gerard Ham MD at [facility] Left: Shoulder [employer] 01/22/2025 AR-9502F-3 9LCPC / / [id number] [employer] Ar-9501-08p Arthrex Univers Revers Shoulder 8 Stem Humeral Sterile - [id number] Implanted:Qty: 1 on 02/13/2021 by Gerard Ham MD at [facility] Left: Shoulder [employer] 05/24/2025 AR-9501-08 P / / [id number] Insurance MEDICARE SOLUTIONS [facility] Address: [address] [address] [place] [id number] MEDICARE SOLUTIONS [facility] Address: [address] [address] [place] [address] MEDICARE SOLUTIONS Advance Directives For more information, please contact: [phone] * Full Code (Latest Code Status on File) Date Activated Date Inactivated Comments 02/13/2021 3:15 PM 02/14/2021 7:07 PM Care Teams Coupon Redemption Clerk Relationship Specialty Start Date End Date Xiao Hanley MD [address] [place] [address] PCP - General Internal Medicine 02/04/20 Daisy Swartz PA [address] [place] [address] Physician Can Solderer Orthopedic Surgery 02/14/21
--- OUTSIDE RECORDS SUMMARY | 2024-10-20 13:52 | XMS_ITS | Clinical Summary ---
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 Gender Identity Not on file Sexual Orientation Not on file Last Filed Vital Signs Vital Sign Reading Time Taken Comments Blood Pressure 130/80 06/10/2014 9:24 AM CDT Pulse 68 06/10/2014 9:24 AM CDT Temperature - - Respiratory Rate - - Oxygen Saturation - - Inhaled Oxygen Concentration - - Weight 82.1 kg (181 lb) 06/10/2014 9:24 AM CDT Height 167.6 cm (5' 6 ) 03/04/2013 3:41 PM CDT Body Mass Index 29.21 03/04/2013 3:41 PM CDT Plan of Treatment Health Maintenance Due Date Last Done Comments DTaP, Tdap and Td Vaccines ( 1 - Tdap) 1957 Pneumococcal Vaccine: 65+ Ye ars (1 of 1 - PCV) 2003 Zoster Vaccines (2 of 3) 04/20/2012 02/24/2012 RSV Immunization or 60+ Years (1 - 1-dose 75+ series) 2013 COVID-19 Vaccine (2023-2 5 season) 2024 Influenza Adult (#1) 2024 Meningococcal B Vaccine Aged Out No l onger eligible based on patient's age to complete this topic Meningococcal Vaccine Aged Out No jose luis bry eligible based on patient's age to complete this topic RSV Immunizations Under 20 Months Aged Out No longer eligible based on patient's age to complete this topic
== END 2024-10-20 12:17 | disposition home or self-care (01) ==
LOC: CHSIMG 12:19
PROVIDERS: PCP Internal Medicine; Visit Provider Internal Medicine
DX: Z12.31 Encounter for screening mammogram for malignant neoplasm of breast (principal)
CPT/HCPCS: 77063; 77067

== ENCOUNTER 2024-11-05 10:29 | Outpatient (CLI) | payer MEDICARE, SELFPAY ==
--- NOTE | ~2024-11-05 | CT_ITS ---
EXAMINATION: CT abdomen pelvis wo/w con DATE: 11/05/2024 12:01 INDICATION: Hematuria. TECHNIQUE: Computed tomography (CT) of the abdomen and pelvis was performed without and with intraven ous contrast using a total of 130 mL Omnipaque-350 intravenous contrast with a double-bolus technique for simultaneous opacification of the renal parenchyma and renal collecting system. Automated exposu re control and iterative reconstruction technique were employed. The dose-length product was 1818.33 mGy-cm. COMPARISON: None FINDINGS: The visualized portions of the lung bases demonstrate mild atelectasis. There is mild scarring in par aspinal right lower lobe. No pleural effusion. There is left atrial enlargement of the heart. No kassandra cardial effusion. There is a 12 mm cyst in the liver. There are changes of cholecystectomy. The splee n, pancreas, and adrenal glands are normal. There are cysts in the kidneys measuring up to 18 mm on t he right. The ureters are well opacified and are normal. The bladder is normal. There are fibroids in uterus measuring up to 5.0 cm. There are no dilated loops of bowel. The appendix is normal. There ar e no pathologically enlarged lymph nodes. There is no free intraperitoneal fluid. There is moderate t horacic and lumbar spondylosis. 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 IMPRESSION: 1. No etiology for hematuria. Reviewed, dictated and finalized at location L.
[2024-11-05 10:58] LABS: Basophils Absolute Auto 0.03 K/mm3 (0.00-0.10); Basophils Percent Auto 0.4 % (0.0-1.0); Eosinophils Absolute Auto 0.13 K/mm3 (0.02-0.50); Eosinophils Percent Auto 1.9 % (1.0-6.0); Hematocrit 40.8 % (35.0-42.0); Hemoglobin 13.2 g/dL (11.7-13.8); Immature Granulocyte Absolute 0.03 K/mm3 (0.00-0.00); Immature Granulocyte Percent A 0.4 % (0.0-0.0); Lymphocytes Absolute Auto 2.12 K/mm3 (1.10-4.50); Lymphocytes Percent Auto 31.6 % (18.0-42.0); Mean Corpuscular HGB Conc 32.4 g/dL (32-36); Mean Corpuscular Hemoglobin 31.6 pg (27.0-31.0); Mean Corpuscular Volume 97.6 fL (78.0-102.0); Mean Platelet Volume 8.5 fl (9.2-11.8); Monocytes Absolute Auto 0.73 K/mm3 (0.10-0.90); Monocytes Percent Auto 10.9 % (2.0-11.0); Neutrophils Absolute Auto 3.67 K/mm3 (1.70-7.20); Neutrophils Percent Auto 54.8 % (50.0-70.0); Platelet Count Result 223 K/mm3 (150-420); Red Blood Count 4.18 M/mm3 (4.20-5.40); Red Cell Distribution Width 12.3 % (11.6-14.4); White Blood Count 6.7 K/mm3 (4.8-10.8)
[2024-11-05 11:10] LABS: Anion Gap 6 mmol/L (4-12); Blood Urea Nitrogen 19 mg/dL (7-18); Calcium 9.4 mg/dL (8.5-10.1); Carbon Dioxide 28 mmol/L (21-32); Chloride 104 mmol/L (98-108); Estimated Glomerular Filt Rate > 60; Glucose 104 mg/dL (70-99); Osmolality Calculated 288 mOsm/kg (285-295); Potassium 4.4 mmol/L (3.5-5.1); Sodium 138 mmol/L (136-145)
--- OUTSIDE RECORDS SUMMARY | 2024-11-05 11:15 | XMS_ITS | Referral Summary ---
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 200.00 NO CHARGE CODE ASSIGNED AT THIS TIME [employer] Sa-4565-0250 Baseplate 24mm 10 Deg Full Augment Oblique - [id number] Implanted:Qty: 1 on 02/13/2021 by Gerard Ham MD at [facility] Left: Shoulder [employer] 08/24/2025 AR-9580-24 10 [id number] [employer] Du-8091-33lzgfon s Revers 5.5mm 32mm Lock Modular Glenoid Peripheral Screw - [id number] Implanted:Qty: 1 on 02/13/2021 by Gerard Ham MD at [facility] Left: Shoulder [employer] 10/22/2024 AR-9563-32 / / [id number] [employer] Ar-9563-365.5mm 36mm Lock Peripheral Screw Bone Sterile - [id number] Implanted:Qty: 1 on 02/13/2021 by Gerard Ham MD at [facility] Left: Shoulder [employer] 09/24/2024 AR-9563-36 / / [id number] [employer] Pq-3065-8593-Inf univers Revers Biosync 39mm 24mm Glenosphere Taper Baseplate - [id number] Implanted:Qty: 1 on 02/13/2021 by Gerard Ham MD at [facility] Left: Shoulder [employer] 02/21/2025 AR-9564-24 39-INF / / [id number] [employer] Ar-9503m-03 Univers Revers 39mm Shoulder +3mm Medium Insert Humeral Sterile - [id number] Implanted:Qty: 1 on 02/13/2021 by Gerard Ham MD at [facility] Left: Shoulder [employer] 06/24/2025 AR-9503M-0 3 / / [id number] [employer] Qe-3226z-34owqka nivers Revers 39mm Suture Shoulder Left +2 Cup Humeral - [id number] Implanted:Qty: 1 on 02/13/2021 by Gerard Ham MD at [facility] Left: Shoulder [employer] 01/22/2025 AR-9502F-3 9LCPC / / [id number] [employer] Ar-9501-08p Arthrex Univers Revers Shoulder 8 Stem Humeral Sterile - [id number] Implanted:Qty: 1 on 02/13/2021 by Gerard Ham MD at [facility] Left: Shoulder [employer] 05/24/2025 AR-9501-08 P / / [id number] Insurance MEDICARE SOLUTIONS [facility] MEDIC[facility] Address: [address] [address] [place] [id number] MEDICARE SOLUTIONS [facility] MEDIC[facility] Address: [address] [address] [place] [address] MEDICARE SOLUTIONS Advance Directives For more information, please contact: [phone] * Full Code (Latest Code Status on File) Date Activated Date Inactivated Comments 02/13/2021 3:15 PM 02/14/2021 7:07 PM Care Teams Acute Care Physical Therapist Relationship Specialty Start Date End Date Xiao Hanley MD [address] [place] [address] PCP - General Internal Medicine 02/04/20 Daisy Swartz PA [address] [place] [address] Physician Receptionist Nurse Orthopedic Surgery 02/14/21
--- OUTSIDE RECORDS SUMMARY | 2024-11-05 11:15 | XMS_ITS | Clinical Summary ---
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 200.00 NO CHARGE CODE ASSIGNED AT THIS TIME [employer] Fw-6832-5584 Baseplate 24mm 10 Deg Full Augment Oblique - [id number] Implanted:Qty: 1 on 02/13/2021 by Gerard Ham MD at [facility] Left: Shoulder [employer] 08/24/2025 AR-9580-24 10 [id number] [employer] Gr-4474-62vzkmsp s Revers 5.5mm 32mm Lock Modular Glenoid Peripheral Screw - [id number] Implanted:Qty: 1 on 02/13/2021 by Gerard Ham MD at [facility] Left: Shoulder [employer] 10/22/2024 AR-9563-32 / / [id number] [employer] Ar-9563-365.5mm 36mm Lock Peripheral Screw Bone Sterile - [id number] Implanted:Qty: 1 on 02/13/2021 by Gerard Ham MD at [facility] Left: Shoulder [employer] 09/24/2024 AR-9563-36 / / [id number] [employer] Nr-8477-6244-Inf univers Revers Biosync 39mm 24mm Glenosphere Taper Baseplate - [id number] Implanted:Qty: 1 on 02/13/2021 by Gerard Ham MD at [facility] Left: Shoulder [employer] 02/21/2025 AR-9564-24 39-INF / / [id number] [employer] Ar-9503m-03 Univers Revers 39mm Shoulder +3mm Medium Insert Humeral Sterile - [id number] Implanted:Qty: 1 on 02/13/2021 by Gerard Ham MD at [facility] Left: Shoulder [employer] 06/24/2025 AR-9503M-0 3 / .[id number] [employer] Kj-6989b-24kcwzx nivers Revers 39mm Suture Shoulder Left +2 Cup Humeral - [id number] Implanted:Qty: 1 on 02/13/2021 by Gerard Ham MD at [facility] Left: Shoulder [employer] 01/22/2025 AR-9502F-3 9LCPC / / [id number] [employer] Ar-9501-08p Ar[employer]rex Univers Revers Shoulder 8 Stem Humeral Sterile - [id number] Implanted:Qty: 1 on 02/13/2021 by Gerard Ham MD at [facility] Left: Shoulder [employer] 05/24/2025 AR-9501-08 P / / [id number] Insurance MEDICARE SOLUTIONS MEDICARE SOLUTIONS MEDICARE SOLUTIONS Advance Directives For more information, please contact: [phone] * Full Code (Latest Code Status on File) Date Activated Date Inactivated Comments 02/13/2021 3:15 PM 02/14/2021 7:07 PM Care Teams Radio Station Manager Relationship Specialty Start Date End Date Xiao Hanley MD [address] [place] [address] PCP - General Internal Medicine 02/04/20 Daisy Swartz PA [address] [place] [address] Physician Administrative Services Specialist Orthopedic Surgery 02/14/21
--- OUTSIDE RECORDS SUMMARY | 2024-11-05 11:15 | XMS_ITS | Data Portability ---
Author Organization [facility], [address] [facility] ([place]) Address [address] [place] [address] Care Team Providers Care Revolving Inventory Clerk Name Role Phone SENG PERSAUD Primary Care Provider Assessment Encounter Date Assessment Date Assessment LastModified by Organization Details LastModified Time 06/29/2024 06/29/2024 Ros Carrasco was seen today for hearing aid issue. Resound links 961 [phone] on the left and [phone] on the right medium power domes Both are out of warranty Last hearing test August 07, 2022. Today's appointment she stated the left eating disorder specialist was not functioning. Visual inspection showed it to be hanging on by a thread. Six Pack Packer was replaced. Hearing aids were returned to patient. There was a $75 charge for the eating disorder specialist. RECOMMENDATION S: 1. Patient paid $75 upfront for the replacement eating disorder specialist. 2. Patient will contact me regarding getting upgraded hearing aid technology and setting up an appointment for hearing test and hearing aid fitting. Not available 06/29/2024 15:25:26 Plan of Treatment Reminders Order Date Submit Date Provider Last Modified By Organization Details Last Modified Time Details Appointments Establis hed Patient 30.EST 2024 08:00A M Jinny Maillet Not available Not available [...] Time Sensorineural hearing loss of bilateral ears [id number] Active 2023 Jinny Gan, AuD [address] [place] [address], [id number] , [place] [facility] 15:23:59 Problem Notes None recorded. Procedures Surgical [...] SNOMED-CT Code Diagnosis ICD10 Code Diagnosis Note [id number] Rica [facility] [address] [place] [address] 06/29/2024 14:02:50 06/29/2024 15:42:52 Sensorineural hearing loss of bilateral ears [id number] H90.3 Health Concerns Section Related Observation LastModified by Organization Detai ls LastModified Time None Recorded Concern Status LastModified by Organization Details LastModified Time None Recorded Advance Directives Directive Y: Payers Encounter Date Sequence Insurance Name Policy Number Policy Rodrigues Covered Member ID Rodrigues Member ID Guarantor Name 06/29/2024 1 [facility] (MEDICARE REPLACEMENT/A DVANTAGE - PPO) [id number] Ros Carrasco [id number] Ros Carrasco 06/29/2024 2 [place] Ros Carrasco [id number] Ros Carrasco OBGyn Episode No OBEpisode recorded.
--- OUTSIDE RECORDS SUMMARY | 2024-11-05 11:15 | XMS_ITS | Clinical Summary ---
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
[2024-11-05 11:19] LABS: INR 0.9; Partial Thromboplastin Time 25.5 Sec (23.9-30.70); Prothrombin Time 10.3 Seconds (9.50-12.1)
== END 2024-11-05 10:30 | disposition home or self-care (01) ==
LOC: CHSLAB 10:31
PROVIDERS: PCP Internal Medicine; Visit Provider Internal Medicine
DX: R31.9 Hematuria, unspecified (principal)
CPT/HCPCS: 36415; 74178; 80048; 85025; 85610; 85730; Q9967

== ENCOUNTER 2024-11-09 15:36 | Outpatient (CLI) | payer MEDICARE, SELFPAY ==
--- NOTE | 2024-11-09 16:00 | ECHO_ITS ---
Patient Info Name: Ros Carrasco Age: 84 years : 1940 Gender: Female Ht: 65 in Wt: 189 lbs BSA: 2.01 m2 HR: 64 bpm BP: 180 / 87 mmHg Heart Rhythm: Sinus Rhythm Technical Quality: Fair Exam Date: 11/09/2024 3:12 PM Exam Location: Echo Lab Patient Status: Outpatient Admit Date: 11/09/2024 Staff Ordering Physician: Xiao Hanley MD Help Desk Associate: Tameka Fisher RDCS Attending Provider: Xiao Hanley MD Referring Physician: Talon MÁRQUEZ; Exam Type: CA echo doppler color flow Study Info Indications - Heart murmur Complete two-dimensional, color flow and Doppler transthoracic echocardiogram is performed. History/Risk Factors Hypertension: Yes Dyslipidemia: No Congenital Heart Disease (CHD): No Peripheral Arterial Disease (PAD): No Myocardial Infarction (WI): No Chronic Lung Disease: No Obesity: No Renal Disease: No Coronary Artery Disease (CAD) No Congestive Heart Failure (CHF): No Cardiomyopathy/LV Systolic Dysfunction: No Diabetes Mellitus: No COPD: No Tobacco Use: Never Cerebrovascular Disease: No Family History: Coronary Artery Disease Deep Vein Thrombosis (DVT): None Dialysis: None Frailty Scale (CSHA): 2: Well Cardiac Arrest: No Prior Interventions Pacemaker: No PCI: No CABG: No Valve Surgery: No ICD: No PV Intervention: None Heart Transplant: No Summary 1. Complete two-dimensional, color flow and Doppler transthoracic echocardiogram is performed. 2. Left ventricular chamber dimension is normal. 3. Left ventricular systolic function is normal, estimated at 65-70%. 4. The left ventricular diastolic function is grade II diastolic dysfunction. 5. E/e' 20 is elevated. 6. Left atrial chamber dimension is moderately enlarged. 7. Right atrial chamber dimension is mildly enlarged. 8. There is moderate aortic valve sclerosis. 9. There is mild aortic valve stenosis with a peak velocity of 225 cm/s, mean gradient of 11 mmHg, and aortic valve area of 1.5 cm2. 10. No pulmonary hypertension, estimated pulmonary arterial systolic pressure is 38 mmHg. Left Ventricle E/e' 20 is elevated. Left ventricular chamber dimension is normal. Left ventricular systolic function is normal, estimated at 65-70%. The left ventricular diastolic function is grade II diastolic dysfunction. Right Ventricle Right ventricular systolic function is normal and with normal TAPSE 2.4 cm. Right ventricular chamber dimension is normal. Left Atria Left atrial chamber dimension is moderately enlarged. Right Atria Right atrial chamber dimension is mildly enlarged. Aortic Valve The aortic valve is trileaflet. There is moderate aortic valve sclerosis. There is mild aortic valve stenosis with a peak velocity of 225 cm/s, mean gradient of 11 mmHg, and aortic valve area of 1.5 cm2. There is no aortic valve regurgitation. Pulmonic Valve There is no pulmonic regurgitation. Mitral Valve There is no mitral valve stenosis. There is no mitral valve regurgitation. Tricuspid Valve There is no tricuspid valve regurgitation. No pulmonary hypertension, estimated pulmonary arterial systolic pressure is 38 mmHg. Pericardium/Pleural There is no pericardial effusion. Inferior Vena Cava Normal inferior vena cava with >50% collapse upon inspiration consistent with normal right atrial pressure, 5 mmHg. Aorta The aortic root size at the sinus of Valsalva is normal. Left Ventricular Outflow Tract Name Value Normal LVOT 2D LVOT Diameter 2.0 cm LVOT Doppler LVOT Peak Velocity 103 cm/s LVOT Peak Gradient 4 mmHg LVOT Mean Gradient 0 mmHg LVOT VTI 27 cm LVOT VTI/AV VTI Ratio 0.5 LVOT Stroke Volume 87 ml Pulmonic Valve Name Value Normal RVOT Doppler RVOT Peak Gradient 2 mmHg PV Doppler PV Peak Velocity 122 cm/s PV Peak Gradient 6 mmHg Mitral Valve Name Value Normal MV Doppler MV Decel Anderson 484 cm/s2 MV PHT 65 ms MV Area (PHT) 3.4 cm2 4.0-5.0 MV Diastolic Function MV E Peak Velocity 108 cm/s MV A Peak Velocity 97 cm/s MV E/A 1.1 MV Decel Time 224 ms Tricuspid Valve Name Value Normal TV Regurgitation Doppler TR Peak Velocity 285 cm/s TR Peak Gradient 33 mmHg Estimated PAP/RSVP RA Pressure 5 mmHg <=5 PA Systolic Pressure 38 mmHg <36 RV Systolic Pressure 38 mmHg <36 Aortic Valve Name Value Normal AV Doppler AV Peak Velocity 225 cm/s AV Peak Gradient 20 mmHg AV Mean Gradient 11 mmHg AV VTI 57 cm AV Area (Cont Eq VTI) 1.5 cm2 >=3.0 AV Area (Cont Eq Sam) 1.5 cm2 AV V1/V2 Ratio 0.46 AV Regurgitation 2D LVOT Area 3.2 cm2 Ventricles Name Value Normal LV Dimensions 2D/MM IVS Diastolic Thickness (2D) 1.1 cm 0.6-1.0 LVID Diastole (2D) 4.2 cm 3.8-5.2 LVIW Diastolic Thickness (2D) 0.9 cm 0.6-0.9 LVID Systole (2D) 2.7 cm 2.2-3.5 LVOT Diameter 2.0 cm LV Mass (2D Cubed) 142.29 g 67.00-162.00 LV Mass Index (2D Cubed) 71 g/m2 43-95 Relative Wall Thickness (2D) 0.44 LV Fractional Shortening/Ejection Fraction 2D/MM LV Fractional Shortening (2D) 36 % 27-45 LV EF (2D Teicholz) 66 % 54-74 LV Diastolic Volume (4C MOD) 103 ml LV EF (4C MOD) 63 % LV Diastolic Volume (2C MOD) 97 ml LV EF (2C MOD) 60 % LV Diastolic Volume (BP MOD) 101 ml 46-106 LV Diastolic Volume Index (BP MOD) 50 ml/m2 29-61 LV Systolic Volume (BP MOD) 39 ml 14-42 LV Systolic Volume Index (BP MOD) 19 ml/m2 8-24 LV EF (BP MOD) 61 % 54-74 LV Diastolic Length (4C) 7.0 cm LV Systolic Length (4C) 6.2 cm LV Stroke Volume (4C MOD) 65 ml Atria Name Value Normal LA Dimensions LA Volume (4C A-L) 101 ml LA Volume (BP A-L) 91 ml RA Dimensions RA Area (4C) 19.5 cm2 <=18.0 Report Signatures
--- OUTSIDE RECORDS SUMMARY | 2024-11-09 17:32 | XMS_ITS | Referral Summary ---
Author Organization [facility] Address [address] [place] [address] Care Team Providers Care Shank Burnisher Name Role Phone Xiao Hanley MD Primary Care Provider [phone] Daisy Swartz Unavailable [phone] Allergies No known active allergies Medications losartan-hydroC [...] CDT Gender Identity Female 11/03/2021 4:27 AM MANAGER TELECOM Sexual Orientation Not on file Last Filed [...] on file Medical Devices Implanted Type Area Coding Educator Device Identifier Shelf Expiration Date Model / Serial / Lot Ar-9582-20 Modular Post For Augmented Mgs Baseplate 20mm Implanted:Qty: 1 on 02/13/2021 by Gerard Ham MD at [facility] Left: Shoulder [employer] [id number] 02/21/2025 AR-9582-20 / N/A / [id number] Description:[facility] ITEM# [id number] 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 200.00 NO CHARGE CODE ASSIGNED AT THIS TIME [employer] [id number] Baseplate 24mm 10 Deg Full Augment Oblique - [id number] Implanted:Qty: 1 on 02/13/2021 by Gerard Ham MD at [facility] Left: Shoulder [employer] 08/24/2025 AR-9580-24 10 [id number] [employer] [id number] s Revers 5.5mm 32mm Lock Modular Glenoid Peripheral Screw - [id number] Implanted:Qty: 1 on 02/13/2021 by Gerard Ham MD at [facility] Left: Shoulder [employer] 10/22/2024 AR-9563-32 / / [id number] [employer] Ar-9563-365.5mm 36mm Lock Peripheral Screw Bone Sterile - [id number] Implanted:Qty: 1 on 02/13/2021 by Gerard Ham MD at [facility] Left: Shoulder [employer] 09/24/2024 AR-9563-36 / / [id number] [employer] [id number] univers Revers Biosync 39mm 24mm Glenosphere Taper Baseplate - [id number] Implanted:Qty: 1 on 02/13/2021 by Gerard Ham MD at [facility] Left: Shoulder [employer] 02/21/2025 AR-9564-24 39-INF / / [id number] [employer] Ar-9503m-03 Univers Revers 39mm Shoulder +3mm Medium Insert Humeral Sterile - [id number] Implanted:Qty: 1 on 02/13/2021 by Gerard Ham MD at [facility] Left: Shoulder [employer] 06/24/2025 AR-9503M-0 3 / / [id number] [employer] [id number] nivers Revers 39mm Suture Shoulder Left +2 Cup Humeral - [id number] Implanted:Qty: 1 on 02/13/2021 by Gerard Ham MD at [facility] Left: Shoulder [employer] 01/22/2025 AR-9502F-3 9LCPC / / [id number] [employer] Ar-9501-08p Arthrex Univers Revers Shoulder 8 Stem Humeral Sterile - [id number] Implanted:Qty: 1 on 02/13/2021 by Gerard Ham MD at [facility] Left: Shoulder [employer] 05/24/2025 AR-9501-08 P / / [id number] Insurance MEDICARE SOLUTIONS [place] [id number] MEDICARE SOLUTIONS MEDICARE SOLUTIONS Advance Directives For more information, please contact: [phone] * Full Code (Latest Code Status on File) Date Activated Date Inactivated Comments 02/13/2021 3:15 PM 02/14/2021 7:07 PM Care Teams Shank Burnisher Relationship Specialty Start Date End Date Xiao Hanley MD [address] [place] [address] PCP - General Internal Medicine 02/04/20 Daisy Swartz PA [address] [place] [address] Physician Bullet Assembly Press Operator Orthopedic Surgery 02/14/21
--- OUTSIDE RECORDS SUMMARY | 2024-11-09 17:32 | XMS_ITS | Clinical Summary ---
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
--- OUTSIDE RECORDS SUMMARY | 2024-11-09 17:32 | XMS_ITS | Data Portability ---
Author Organization [facility], [address] 4[address] Neurology (ID) Address [address] [place] [address] Care Team Providers Care Cardiovascular Radiologic Technologist Name Role Phone SENG PERSAUD Primary Care Provider Assessment Encounter Date Assessment Date Assessment LastModified by Organization Details LastModified Time 06/29/2024 06/29/2024 Ros Carrasco was seen today for hearing aid issue. Resound links [phone] on the left and [phone] on the right medium power domes Both are out of warranty Last hearing test August 07, 2022. Today's appointment she stated the left qa manager was not functioning. Visual inspection showed it to be hanging on by a thread. Electrical Sign Servicer was replaced. Hearing aids were returned to patient. There was a $75 charge for the qa manager. RECOMMENDATION S: 1. Patient paid $75 upfront for the replacement qa manager. 2. Patient will contact me regarding getting [...] Time Sensorineural hearing loss of bilateral ears [id number] Active 2023 Jinny Gan, AuD [address] [place] [address], [id number] , [place] [facility] 15:23:59 Problem Notes None recorded. [...] N Arthritis N Hyperlipidemia N Cancer N Thyroid Problems N Stroke N Asthma N COPD N Depression N Anemia N Seizures N Heart Disease N Fibromyalgia N Osteoporosis N Kidney Disease N Gynecological HistoryNo gynecological history recorded. Obstetrics History GPAL:G 0 P 0 0 0 0 Past Encounters Encounter ID Performer Location Encounter Start Date Encounter Closed Date Diagnosis/Indication Diagnosis SNOMED-CT Code Diagnosis ICD10 Code Diagnosis Note [id number] Rica Hopkins [facility] [address] [place] [address] 06/29/2024 14:02:50 06/29/2024 15:42:52 Sensorineural hearing loss of bilateral ears 973847941 H90.3 Health Concerns Section Related Observation LastModified by Organization Detai ls LastModified Time None Recorded Concern Status LastModified by Organization Details LastModified Time None Recorded Advance Directives Directive Y: Payers Encounter Date Sequence Insurance Name Policy Number Policy Rodrigues Covered Member ID Rodrigues Member ID Guarantor Name 06/29/2024 1 [facility] (MEDICARE REPLACEMENT/A DVANTAGE - PPO) [id number] Ros Carrasco [id number] Ros Carrasco 06/29/2024 2 [place] Ros Carrasco [id number] Ros Carrasco OBGyn Episode No OBEpisode recorded.
--- OUTSIDE RECORDS SUMMARY | 2024-11-09 17:32 | XMS_ITS | Clinical Summary ---
Author Organization [facility] Medical Office Building B Address [address] [place] [address] Care Team Providers Care Drugless Physician Name Role Phone Xiao Hanley MD Primary Care Provider [phone] Daisy Swartz Unavailable [phone] Allergies No known active allergies Medications losartan-hydroC [...] CDT Gender Identity Female 11/03/2021 4:27 AM CALL PERSON Sexual Orientation Not on file Obstetrics History [...] 03/2019, 02/12/2013 Medical Devices Implanted Type Area Drugless Physician Device Identifier Shelf Expiration Date Model / Serial / Lot Ar-9582-20 Modular Post For Augmented Mgs Baseplate 20mm Implanted:Qty: 1 on 02/13/2021 by Gerard Ham MD at [facility] Left: Shoulder [employer] [id number] 02/21/2025 AR-9582-20 / N/A / [id number] Description:[facility] ITEM# [id number] 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 200.00 NO CHARGE CODE ASSIGNED AT THIS TIME [employer] [id number] Baseplate 24mm 10 Deg Full Augment Oblique - [id number] Implanted:Qty: 1 on 02/13/2021 by Gerard Ham MD at [facility] Left: Shoulder [employer] 08/24/2025 AR-9580-24 10 [id number] [employer] [id number] s Revers 5.5mm 32mm Lock Modular Glenoid Peripheral Screw - [id number] Implanted:Qty: 1 on 02/13/2021 by Gerard Ham MD at [facility] Left: Shoulder [employer] 10/22/2024 AR-9563-32 / / [id number] [employer] Ar-9563-365.5mm 36mm Lock Peripheral Screw Bone Sterile - [id number] Implanted:Qty: 1 on 02/13/2021 by Gerard Ham MD at [facility] Left: Shoulder [employer] 09/24/2024 AR-9563-36 / / [id number] [employer] [id number] univers Revers Biosync 39mm 24mm Glenosphere Taper Baseplate - [id number] Implanted:Qty: 1 on 02/13/2021 by Gerard Ham MD at [facility] Left: Shoulder [employer] 02/21/2025 AR-9564-24 39-INF / / [id number] [employer] Ar-9503m-03 Univers Revers 39mm Shoulder +3mm Medium Insert Humeral Sterile - [id number] Implanted:Qty: 1 on 02/13/2021 by Gerard Ham MD at [facility] Left: Shoulder [employer] 06/24/2025 AR-9503M-0 3 / .[id number] [employer] [id number] nivers Revers 39mm Suture Shoulder Left +2 Cup Humeral - [id number] Implanted:Qty: 1 on 02/13/2021 by Gerard Ham MD at [facility] Left: Shoulder [employer] 01/22/2025 AR-9502F-3 9LCPC / / [id number] [employer] Ar-9501-08p Arthrex Univers Revers Shoulder 8 Stem Humeral Sterile - [id number] Implanted:Qty: 1 on 02/13/2021 by Gerard Ham MD at [facility] Left: Shoulder [employer] 05/24/2025 AR-9501-08 P / / [id number] Insurance MEDICARE SOLUTIONS MEDICARE SOLUTIONS MEDICARE SOLUTIONS Advance Directives For more information, please contact: [phone] * Full Code (Latest Code Status on File) Date Activated Date Inactivated Comments 02/13/2021 3:15 PM 02/14/2021 7:07 PM Care Teams Drugless Physician Relationship Specialty Start Date End Date Xiao Hanley MD [address] [place] [address] PCP - General Internal Medicine 02/04/20 Daisy Swartz PA [address] [place] [address] Physician Dispensing And Measuring Optician Orthopedic Surgery 02/14/21
== END 2024-11-09 15:37 | disposition home or self-care (01) ==
PROVIDERS: PCP Internal Medicine; Visit Provider Internal Medicine
DX: R01.1 Cardiac murmur, unspecified (principal); I35.0 Nonrheumatic aortic (valve) stenosis; I51.7 Cardiomegaly; I50.30 Unspecified diastolic (congestive) heart failure
CPT/HCPCS: 93306

== ENCOUNTER 2024-11-25 08:01 | Outpatient (CLI) | payer MEDICARE, SELFPAY ==
--- NOTE | ~2024-11-25 | XR_ITS ---
XR abdomen/kub 1V 11/25/2024 08:24 Indication: Gross hematuria Procedure: KUB Comparison: No prior studies for comparison. Findings: Bowel gas pattern nonobstructive. There are cholecystectomy clips. There are coarse amorpho us calcifications in the pelvis, likely related to calcified uterine fibroids. Moderate lumbar spondy losis. No acute osseous abnormality. Impression: 1: Coarse calcifications in the pelvis are likely related to fibroid changes. Bladder stones are less likely. Reviewed, dictated and finalized at location A. Impression: 1: Coarse calcifications in the pelvis are likely related to fibroid changes. B ladder stones are less likely.
--- OUTSIDE RECORDS SUMMARY | 2024-11-25 08:12 | XMS_ITS | Data Portability ---
Author Organization [facility], [address] Neurology ([place]) Address [address]th [place] [address] Care Team Providers Care Fisher Eel Spear Name Role Phone SENG PERSAUD Primary Care Provider [phone] Assessment Encounter Date Assessment Date Assessment LastModified by Organization Details LastModified Time 06/29/2024 06/29/2024 Ros Carrasco was seen today for hearing aid issue. Resound links [phone] on the left and [phone] on the right medium power domes Both are out of warranty Last hearing test August 07, 2022. Today's appointment she stated the left assembler wire mesh gate was not functioning. Visual inspection showed it to be hanging on by a thread. Frame Fixer was replaced. Hearing aids were returned to patient. There was a $75 charge for the assembler wire mesh gate. RECOMMENDATIONS: 1. Patient paid $75 upfront for the replacement assembler wire mesh gate. 2. Patient will contact me regarding getting upgraded hearing aid technology and setting up an appointment for hearing test and hearing aid fitting. Not available 06/29/2024 15:25:26 11/11/2024 11/11/2024 Ros Carrasco seen for audiological evaluation. Her last hearing test was done on 08/07/2022. She presently wears binaural amplification. Resound links [phone] on the left and [phone] on the right medium power domes Both are out of warranty Last hearing test 11/11/2024 RESULTS: Otoscopy is unremarkable. Pure-tone air and bone conduction testing using insert earphones reveals a mild to severe sensorineural hearing loss in her left ear and a mild to severe sensorineural hearing loss in her right ear. 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 Speech receptionist/telephone operator thresholds were obtained at 30 dB HL in the left ear and 40 dB HL in the right ear Speech discrimination was tested in quiet at 75 dB HL in the left ear and at 80 dB HL in the right ear resulting in a score of 92% in each ear. Results were reviewed with patient. She verbalized understanding. Resound hearing aids were cleaned and checked. Listening check reveals they are functioning properly. Hearing aids were programmed according to today's audiometric data. She is also interested in updated hearing aid technology. She has the [facility] hearing aid benefits. Unfortunately, the [facility] does not offer the Infinio Sphere sphere Phonak products. I called and talked with Anisa at [facility]. She states they do not have a contract with [employer] to supply the spare product but can supply the Infinio. I contacted patient and informed her of this information. We had talked prior to her leaving today that there was also the Infinio Sphere product that did not have the new AI technology. She states she was not that interested in AI technology. I called patient on the phone as she does live a significant distance away. I went through the website for [facility] and explained to her each step of the way what I was doing. She verbalized understanding. She gave consent to go ahead and sign her name electronically. She has chosen the color graphite martínez. He has signed a quote and will contact [facility] to pay for the devices so they can be shipped directly to the clinic. I will mail her a copy of the quote and have set her up with an appointment to return November 25 at 430 for a fitting. If I do not have the hearing aids by that time, I will contact patient and reschedule. RECOMMENDATIONS: 1. Patient was given a form to give to her primary care doctor to sign for medical clearance for hearing aids due to her asymmetrical hearing loss. 2. Patient will return November 25 at 430 for hearing aid fitting. However, if I do not receive the hearing aids as they do have to go through [facility], I will contact patient and reschedule. She will be in [place] for a part of the time at the end of October. 3. Hearing test as needed or if any changes are noted. Not available 11/11/2024 11:05:53 Plan of Treatment Reminders Order Date Submit Date Provider Last Modified By Organization Details Last Modified Time Details Appointments Hearing Aid Fitting 60.EST 2024 07:30A M Jinny Mailjackelyn Not available Not available Not available Lab [...] Time Sensorineural hearing loss of bilateral ears [id number] Active 2023 Jinny Burroughs Maillet, AuD [address] [place] [address], [phone] , [facility] 4 15:23:59 Asymmetrical sensorineural hearing loss 120466786 Active 2024 Jinny Burroughs Maillet, AuD [address] [place] [address], [address] , [facility] 5 10:58:05 Problem Notes None recorded. Procedures Surgical History [...] Social History Question Answer Notes LastModified by [employer] Details LastModified Time Tobacco Smoking Status Former [...] available 10/19 15:33:26 Medical History Condition Response Anxiety Disorder N Diabetes N Bleeding Disorder N Attention-deficit Hyperactivity Disorder N High Blood Pressure N Arthritis N Hyperlipidemia N Cancer N Thyroid Problems N Stroke N Asthma N Depression N COPD N Seizures N Anemia N Heart Disease N Fibromyalgia N Osteoporosis N Kidney Disease N Gynecological HistoryNo gynecological history recorded. Obstetrics History GPAL:G 0 P 0 0 0 0 Past Encounters Encounter ID Performer Location Encounter Start Date Encounter Closed Date Diagnosis/Indication Diagnosis SNOMED-CT Code Diagnosis ICD10 Code Diagnosis Note [id number] Rica Hopkins [address] Audiology [address] [facility],[address] [place] [address] 06/29/2024 14:02:50 06/29/2024 15:42:52 Sensorineural hearing loss of bilateral ears 351359712 H90.3 [id number] Rica Hopkins [address] Audiology [address] [facility],[address] [place] [address] 11/11/2024 08:49:05 11/11/2024 11:31:03 Asymmetrical sensorineural hearing loss [id number] H90.3 Health Concerns Section Related Observation LastModified by Organization Detai ls LastModified Time None Recorded Concern Status LastModified by Organization Details LastModified Time None Recorded Advance Directives Directive Y: Payers Encounter Date Sequence Insurance Name Policy Number Policy Rodrigues Covered Member ID Rodrigues Member ID Guarantor Name 06/29/2024 2 [facility] (MEDICARE REPLACEMENT/A DVANTAGE - PPO) [id number] Ros Carrasco [id number] Ros Carrasco 06/29/2024 1 [place] Ros Fisheronald [id number] Ros Fisheronald 11/11/2024 2 [facility] (MEDICARE REPLACEMENT/A DVANTAGE - PPO) [id number] Ros Fisheronald [id number] Ros Fisheronald 11/11/2024 1 [place] Ros Fisheronald [id number] Ros Carrasco OBGyn Episode No OBEpisode recorded.
--- OUTSIDE RECORDS SUMMARY | 2024-11-25 08:12 | XMS_ITS | Clinical Summary ---
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 200.00 NO CHARGE CODE ASSIGNED AT THIS TIME [employer] [id number]-[id number] Baseplate 24mm 10 Deg Full Augment Oblique - [id number] Implanted:Qty: 1 on 02/13/2021 by Gerard Ham MD at [facility] Left: Shoulder [employer] 08/24/2025 AR-9580-24 10 [id number] [employer] Gm-3893-15dyydns s Revers 5.5mm 32mm Lock Modular Glenoid Peripheral Screw - [id number] Implanted:Qty: 1 on 02/13/2021 by Gerard Ham MD at [facility] Left: Shoulder [employer] 10/22/2024 AR-9563-32 / / [id number] [employer] Ar-9563-365.5mm 36mm Lock Peripheral Screw Bone Sterile - [id number] Implanted:Qty: 1 on 02/13/2021 by Gerard Ham MD at [facility] Left: Shoulder [employer] 09/24/2024 AR-9563-36 / / [id number] [employer] As-4046-3550-Inf univers Revers Biosync 39mm 24mm Glenosphere Taper Baseplate - [id number] Implanted:Qty: 1 on 02/13/2021 by Gerard Ham MD at [facility] Left: Shoulder [employer] 02/21/2025 AR-9564-24 39-INF / / [id number] [employer] Ar-9503m-03 Univers Revers 39mm Shoulder +3mm Medium Insert Humeral Sterile - [id number] Implanted:Qty: 1 on 02/13/2021 by Gerard Ham MD at [facility] Left: Shoulder [employer] 06/24/2025 AR-9503M-0 3 / .[id number] [employer] [id number]-[id number]-[id number] nivers Revers 39mm Suture Shoulder Left +2 Cup Humeral - [id number] Implanted:Qty: 1 on 02/13/2021 by Gerard Ham MD at [facility] Left: Shoulder [employer] 01/22/2025 AR-9502F-3 9LCPC / / [id number] [employer] Ar-9501-08p Arthrex Univers Revers Shoulder 8 Stem Humeral Sterile - [id number] Implanted:Qty: 1 on 02/13/2021 by Gerard Ham MD at [facility] Left: Shoulder [employer] 05/24/2025 AR-9501-08 P / / [id number] Insurance [facility] MEDIC[facility] ADVANTAGE [facility] Address: [address] [address] [facility] ADVANT[facility] Address: [address] [address] [place] [address] [facility]IC[facility] ADVANTAGE [facility] Address: [address] [address] [place] [address] Advance Directives For more information, please contact: [phone] * Full Code (Latest Code Status on File) Date Activated Date Inactivated Comments 02/13/2021 3:15 PM 02/14/2021 7:07 PM Care Teams Transportation Analyst Relationship Specialty Start Date End Date Xiao Hanley MD [address] [place] [address] PCP - General Internal Medicine 02/04/20 Daisy Swartz PA [address] [place] [address] Physician Lookback Coordinator Orthopedic Surgery 02/14/21
--- OUTSIDE RECORDS SUMMARY | 2024-11-25 08:12 | XMS_ITS | Clinical Summary ---
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
--- OUTSIDE RECORDS SUMMARY | 2024-11-25 08:12 | XMS_ITS | Referral Summary ---
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 200.00 NO CHARGE CODE ASSIGNED AT THIS TIME [employer] Vj-[id number] Baseplate 24mm 10 Deg Full Augment Oblique - [id number] Implanted:Qty: 1 on 02/13/2021 by Gerard Ham MD at [facility] Left: Shoulder [employer] 08/24/2025 AR-9580-24 10 [id number] [employer] Hz-8936-84rvuwah s Revers 5.5mm 32mm Lock Modular Glenoid Peripheral Screw - [id number] Implanted:Qty: 1 on 02/13/2021 by Gerard Ham MD at [facility] Left: Shoulder [employer] 10/22/2024 AR-9563-32 / / [id number] [employer] Ar-9563-365.5mm 36mm Lock Peripheral Screw Bone Sterile - [id number] Implanted:Qty: 1 on 02/13/2021 by Gerard Ham MD at [facility] Left: Shoulder [employer] 09/24/2024 AR-9563-36 / / [id number] [employer] Md-3184-8441-Inf univers Revers Biosync 39mm 24mm Glenosphere Taper Baseplate - [id number] Implanted:Qty: 1 on 02/13/2021 by Gerard Ham MD at [facility] Left: Shoulder [employer] 02/21/2025 AR-9564-24 39-INF / / [id number] [employer] Ar-9503m-03 Univers Revers 39mm Shoulder +3mm Medium Insert Humeral Sterile - [id number] Implanted:Qty: 1 on 02/13/2021 by Gerard Ham MD at [facility] Left: Shoulder [employer] 06/24/2025 AR-9503M-0 3 / / [id number] [employer] Ms-0934x-95hpvpz nivers Revers 39mm Suture Shoulder Left +2 Cup Humeral - [id number] Implanted:Qty: 1 on 02/13/2021 by Gerard Ham MD at [facility] Left: Shoulder [employer] 01/22/2025 AR-9502F-3 9LCPC / / [id number] [employer] Ar-9501-08p Ar[employer]rex Univers Revers Shoulder 8 Stem Humeral Sterile - [id number] Implanted:Qty: 1 on 02/13/2021 by Gerard Ham MD at [facility] Left: Shoulder [employer] 05/24/2025 AR-9501-08 P / / [id number] Insurance [facility] MEDIC[facility] AD[facility]ANTAGE [facility] Address: [address] [address] [place] [id number] [employer]HC MEDICARE ADVANTAGE [facility] Address: [address] [address] [place] [address] [employer]HC MEDICARE ADVANTAGE [facility] Address: [address] [address] [place] [address] Advance Directives For more information, please contact: [phone] * Full Code (Latest Code Status on File) Date Activated Date Inactivated Comments 02/13/2021 3:15 PM 02/14/2021 7:07 PM Care Teams Composition Molder Relationship Specialty Start Date End Date Xiao Hanley MD [address] [place] [address] PCP - General Internal Medicine 02/04/20 Daisy Swartz PA [address] [place] [address] Physician Bench Assembly Inspector Orthopedic Surgery 02/14/21
== END 2024-11-25 08:02 | disposition home or self-care (01) ==
LOC: CHSIMG 08:03
PROVIDERS: PCP Internal Medicine; Visit Provider Urology
DX: R31.0 Gross hematuria (principal); R93.41 Abnormal radiologic findings on diagnostic imaging of renal pelvis, ureter, or bladder
CPT/HCPCS: 74018

== ENCOUNTER 2024-12-30 11:15 | Outpatient (CLI) | payer MEDICARE, SELFPAY ==
--- NOTE | ~2024-12-30 | XR_ITS ---
Lumbosacral Spine: AP and lateral views Clinical History: Pain Findings: The normal lordotic curve is maintained. No fracture seen. There is 11 mm anterolisthesis o f L4 over L5. There is mild degenerative change at L3-L4. There is advanced facet arthropathy through out the lumbar spine. There is cortical and trabecular thickening of L3, consistent with Paget's dise ase. The sacroiliac joints are normally outlined. Calcified uterine fibroids are noted. Impression: Paget's disease of L3. 11 mm anterolisthesis of L4 over L5. Degenerative change, as above. Reviewed, dictated and finalized at location M. Impression: Paget's disease of L3. 11 mm anterolisthesis of L4 over L5. Degenerative change, as above.
--- NOTE | ~2024-12-30 | XR_ITS ---
AP and oblique views of the SI joints CLINICAL HISTORY: Pain FINDINGS: There is minimal degenerative change of the SI joints. No erosive change or sclerosis. Bila teral hip joints are intact. Calcified uterine fibroids are present. IMPRESSION: Minimal degenerative change of the SI joints. Calcified fibroids. Reviewed, dictated and finalized at location .
--- OUTSIDE RECORDS SUMMARY | 2024-12-30 11:21 | XMS_ITS | Referral Summary ---
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 200.00 NO CHARGE CODE ASSIGNED AT THIS TIME [employer] Il-7036-9676 Baseplate 24mm 10 Deg Full Augment Oblique - [id number] Implanted:Qty: 1 on 02/13/2021 by Gerard Ham MD at [facility] Left: Shoulder [employer] 08/24/2025 AR-9580-24 10 [id number] [employer] As-6589-69udtyni s Revers 5.5mm 32mm Lock Modular Glenoid Peripheral Screw - [id number] Implanted:Qty: 1 on 02/13/2021 by Gerard Ham MD at [facility] Left: Shoulder [employer] 10/22/2024 AR-9563-32 / / [id number] [employer] Ar-9563-365.5mm 36mm Lock Peripheral Screw Bone Sterile - [id number] Implanted:Qty: 1 on 02/13/2021 by Gerard Ham MD at [facility] Left: Shoulder [employer] 09/24/2024 AR-9563-36 / / [id number] [employer] Gi-2544-5747-Inf univers Revers Biosync 39mm 24mm Glenosphere Taper Baseplate - [id number] Implanted:Qty: 1 on 02/13/2021 by Gerard Ham MD at [facility] Left: Shoulder [employer] 02/21/2025 AR-9564-24 39-INF / / [id number] [employer] Ar-9503m-03 Univers Revers 39mm Shoulder +3mm Medium Insert Humeral Sterile - [id number] Implanted:Qty: 1 on 02/13/2021 by Gerard Ham MD at [facility] Left: Shoulder [employer] 06/24/2025 AR-9503M-0 3 / / [id number] [employer] Qb-[id number]-[id number] nivers Revers 39mm Suture Shoulder Left +2 Cup Humeral - [id number] Implanted:Qty: 1 on 02/13/2021 by Gerard Ham MD at [facility] Left: Shoulder [employer] 01/22/2025 AR-9502F-3 9LCPC / / [id number] [employer] Ar-9501-08p Ar[employer]rex Univers Revers Shoulder 8 Stem Humeral Sterile - [id number] Implanted:Qty: 1 on 02/13/2021 by Gerard Ham MD at [facility] Left: Shoulder [employer] 05/24/2025 AR-9501-08 P / / [id number] Insurance [facility] MEDICARE ADVANTAGE [place] [id number] UHC MEDICARE ADVANTAGE UHC MEDICARE ADVANTAGE Advance Directives For more information, please contact: [phone] * Full Code (Latest Code Status on File) Date Activated Date Inactivated Comments 02/13/2021 3:15 PM 02/14/2021 7:07 PM Care Teams Director Packaging Relationship Specialty Start Date End Date Xiao Hanley MD [address] [place] [address] PCP - General Internal Medicine 02/04/20 Daisy Swartz PA [address] [place] [address] Physician Choke Setter Orthopedic Surgery 02/14/21
--- OUTSIDE RECORDS SUMMARY | 2024-12-30 11:21 | XMS_ITS | Clinical Summary ---
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 200.00 NO CHARGE CODE ASSIGNED AT THIS TIME [employer] Da-1044-9971 Baseplate 24mm 10 Deg Full Augment Oblique - [id number] Implanted:Qty: 1 on 02/13/2021 by Gerard Ham MD at [facility] Left: Shoulder [employer] 08/24/2025 AR-9580-24 10 [id number] [employer] Qr-[id number] s Revers 5.5mm 32mm Lock Modular Glenoid Peripheral Screw - [id number] Implanted:Qty: 1 on 02/13/2021 by Gerard Ham MD at [facility] Left: Shoulder [employer] 10/22/2024 AR-9563-32 / / [id number] [employer] Ar-9563-365.5mm 36mm Lock Peripheral Screw Bone Sterile - [id number] Implanted:Qty: 1 on 02/13/2021 by Gerard Ham MD at [facility] Left: Shoulder [employer] 09/24/2024 AR-9563-36 / / [id number] [employer] Di-1381-4276-Inf univers Revers Biosync 39mm 24mm Glenosphere Taper Baseplate - [id number] Implanted:Qty: 1 on 02/13/2021 by Gerard Ham MD at [facility] Left: Shoulder [employer] 02/21/2025 AR-9564-24 39-INF / / [id number] [employer] Ar-9503m-03 Univers Revers 39mm Shoulder +3mm Medium Insert Humeral Sterile - [id number] Implanted:Qty: 1 on 02/13/2021 by Gerard Ham MD at [facility] Left: Shoulder [employer] 06/24/2025 AR-9503M-0 3 / .[id number] [employer] Ye-1339o-25tigdc nivers Revers 39mm Suture Shoulder Left +2 Cup Humeral - [id number] Implanted:Qty: 1 on 02/13/2021 by Gerard Ham MD at [facility] Left: Shoulder [employer] 01/22/2025 AR-9502F-3 9LCPC / / [id number] [employer] Ar-9501-08p Ar[employer]rex Univers Revers Shoulder 8 Stem Humeral Sterile - [id number] Implanted:Qty: 1 on 02/13/2021 by Gerard Ham MD at [facility] Left: Shoulder [employer] 05/24/2025 AR-9501-08 P / / [id number] Insurance [facility] MEDICARE ADVANTAGE [facility] MEDICARE ADVANTAGE [facility] MEDICARE ADVANTAGE Advance Directives For more information, please contact: [phone] * Full Code (Latest Code Status on File) Date Activated Date Inactivated Comments 02/13/2021 3:15 PM 02/14/2021 7:07 PM Care Teams Fire Captain Marine Relationship Specialty Start Date End Date Xiao Hanley MD [address] [place] [address] PCP - General Internal Medicine 02/04/20 Daisy Swartz PA [address] [place] [address] Physician Eye Physician Orthopedic Surgery 02/14/21
--- OUTSIDE RECORDS SUMMARY | 2024-12-30 11:21 | XMS_ITS | Clinical Summary ---
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
--- OUTSIDE RECORDS SUMMARY | 2024-12-30 11:21 | XMS_ITS | Data Portability ---
Author Organization [facility], [address] [place] [address] Neurology ([place]) Address [address] [address] Care Team Providers Care Community Planner Name Role Phone SENG PERSAUD Primary Care Provider [phone] Assessment Encounter Date Assessment Date Assessment LastModified by Organization Details LastModified Time 06/29/2024 06/29/2024 Ros Carrasco was seen today for hearing aid issue. Resound links [phone] on the left and [phone] on the right medium power domes Both are out of warranty Last hearing test August 07, 2022. Today's appointment she stated the left animation camera operator was not functioning. Visual inspection showed it to be hanging on by a thread. Pipe Stem Sawyer was replaced. Hearing aids were returned to patient. There was a $75 charge for the animation camera operator. RECOMMENDATIONS: 1. Patient paid $75 upfront for the replacement animation camera operator. 2. Patient will contact me regarding getting upgraded hearing aid technology and setting up an appointment for hearing test and hearing aid fitting. Not available 06/29/2024 15:25:26 11/11/2024 11/11/2024 Ros Carrasco seen for audiological evaluation. Her last hearing test was done on 08/07/2022. She presently wears binaural amplification. Resound links [phone] on the left and [phone] on the right medium power domes Both are out of warranty Last hearing test 11/11/2024 RESULTS: Otoscopy is unremarkable. Pure-tone air and bone conduction testing using insert earphones reveals a mild to severe sensorineural hearing loss in her left ear and a mild to severe sensorineural hearing loss in her right ear. 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 Speech medical records receptionist thresholds were obtained at 30 dB HL [...] updated hearing aid technology. She has the [facility] hearing aid benefits. Unfortunately, the [facility] does not offer the [employer] Sphere sphere Phonak products. I called and talked with Anisa at [facility]. She states they do not have a contract with [employer] to supply the spare product but can [...] away. I went through the website for [facility] and explained to her each step of the way what I was doing. She verbalized understanding. She gave consent to go ahead and sign her name electronically. She has chosen the color graphite martínez. He has signed a quote and will contact [facility] to pay for the devices so they [...] as they do have to go through [facility], I will contact patient and reschedule. She will be in [place] for a part of the time at the end of October. 3. Hearing test as needed or if any changes are noted. Not available 11/11/2024 11:05:53 11/29/2024 11/29/2024 Ros Carrasco was seen today for hearing aid dispensing. She is a previous hearing aid user. Her old hearing aids were put in the soft pouch and put in her Phonak bag. She took it with her today. Bill of sales was completed in the [facility] portal. She also signed and dated hearing instrument dispensing record. Phonak Audeo I90-R [id number] on the left and [id number] on the right 2M with a small power on the right and a small vented on the left I have removed the retention locks. Trial ends 01/28/2025 Warranty expires 12/12/2027 Last hearing test 11/11/2024 Basic care and maintenance was reviewed with patient. She verbalized understanding. Hearing aids were paired to her phone. I reviewed with her how to use the application and how to answer phone calls using tap control. Please set at 95% targets. Recommendations: 1. Patient will return in 5 weeks for hearing aid check. If she has any questions or concerns, she will call or come in sooner. 2. [facility] will be billed for the dispensing fees. Not available 11/29/2024 09:41:46 Plan of Treatment Reminders Order Date Submit Date Provider Last Modified By Organization Details Last Modified Time Details Appointments Establis [facility] Patient 30.EST 2024 09:00A M Jinny Maillet Not available Not available [...] Time Sensorineural hearing loss of bilateral ears [id number] Active 2023 Jinny Gan, AuD [address] [place] [address], [phone] , [facility] 4 15:23:59 Asymmetrical sensorineural hearing loss [id number] Active 2024 Jinny Gan, AuD [address] [place] [address], [phone] , [facility] 5 10:58:05 Problem Notes None recorded. 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 3-4 Times Per Week [employer]-685 Information not available 10/19/2024 When Did You Quit Smoking? [address] [employer]-685 Information not available 10/19/2024 What Was The [...] SNOMED-CT Code Diagnosis ICD10 Code Diagnosis Note [id number] Rica Hopkins [facility] [address] [place] [phone] 06/29/2024 14:02:50 06/29/2024 15:42:52 Sensorineural hearing loss of bilateral ears [id number] H90.3 [id number] Rica Hopkins [facility] [address] [place] [phone] 11/11/2024 08:49:05 11/11/2024 11:31:03 Asymmetrical sensorineural hearing loss [id number] H90.3 [id number] Rica Hopkins [facility] [address] [place] [address] 11/29/2024 08:05:57 11/29/2024 10:09:38 Sensorineural hearing loss of bilateral ears [id number] H90.3 Health Concerns Section Related Observation LastModified by Organization Detai ls LastModified Time None Recorded Concern Status LastModified by Organization Details LastModified Time None Recorded Advance Directives Directive Y: Payers Insurance Date Sequence Insurance Name Policy Number Policy Rodrigues Covered Member ID Rodrigues Member ID Guarantor Name 11/29/2024 1 [place] Ros Carrasco [id number] Ros Carrasco 11/29/2024 2 [facility] (MEDICARE REPLACEMENT/A DVANTAGE - PPO) [id number] Ros Carrasco [id number] Ros Carrasco OBGyn Episode No OBEpisode recorded.
== END 2024-12-30 11:16 | disposition home or self-care (01) ==
LOC: CHSIMG 11:18
PROVIDERS: PCP Internal Medicine; Visit Provider Internal Medicine
DX: M54.50 Low back pain, unspecified (principal); D25.9 Leiomyoma of uterus, unspecified; M88.1 Osteitis deformans of vertebrae; M43.16 Spondylolisthesis, lumbar region
CPT/HCPCS: 72100; 72202

== ENCOUNTER 2025-01-08 09:10 | Outpatient (CLI) | payer MEDICARE, SELFPAY ==
--- NOTE | ~2025-01-08 | MR_ITS ---
MRI of the lumbar spine Clinical History: Back pain Technique: Axial T2-weighted images, and sagittal T1-weighted, T2-weighted, and T2 fat-sat images wer e acquired. Findings: No acute fracture. There is 7 mm anterolisthesis of L4 over L5. No suspicious bone marrow s ignal abnormality seen. At L1-L2, there is minimal disc bulge and minimal facet arthropathy. No central canal stenosis or mayda ral foraminal narrowing. At L2-L3, there is no disc bulge or herniation. There is moderate facet arthropathy. No central canal stenosis or definite neural foraminal narrowing. At L3-L4, there is mild disc bulge with moderate to advanced facet arthropathy. There is minimal cent ral canal stenosis. Neural foramina are preserved. At L4-L5, there is disc bulge/uncovering with severe facet arthropathy. There is severe spinal canal stenosis/thecal sac compression. Neural foramina are preserved. At L5-S1, there is severe facet arthropathy. No significant disc bulge or herniation. No spinal canal stenosis or neural foraminal narrowing. Paravertebral soft tissues are unremarkable. Impression: 7 mm anterolisthesis of L4 over L5. Severe degenerative spondylitic changes at L4-L5, as detailed above. Mild degenerative change in the remainder of the lumbar spine. Reviewed, dictated and finalized at [facility]. Impression: 7 mm anterolisthesis of L4 over L5. Severe degenerative spondylitic changes at L4-L5, as detailed above. Mild degenerative change in the remainder of the lumbar spine.
--- OUTSIDE RECORDS SUMMARY | 2025-01-08 09:15 | XMS_ITS | Data Portability ---
Author Organization [facility], [address] [place] [address] Neurology ([place]) Address [address] [address] Care Team Providers Care Inspector Golf Ball Name Role Phone SENG PERSAUD Primary Care Provider Assessment Encounter Date Assessment Date Assessment LastModified by Organization Details LastModified Time 06/29/2024 06/29/2024 Ros Carrasco was seen today for hearing aid issue. Resound links [phone] on the left and [phone] on the right medium power domes Both are out of warranty Last hearing test August 07, 2022. Today's appointment she stated the left car servicer was not functioning. Visual inspection showed it to be hanging on by a thread. Clinical Provider Trainer was replaced. Hearing aids were returned to patient. There was a $75 charge for the car servicer. RECOMMENDATIONS: 1. Patient paid $75 upfront for the replacement car servicer. 2. Patient will contact me regarding getting upgraded hearing aid technology and setting up an appointment for hearing test and hearing aid fitting. Not available 06/29/2024 15:25:26 11/11/2024 11/11/2024 Ros Carrasco seen for audiological evaluation. Her last hearing test was done on 08/07/2022. She presently wears binaural amplification. Resound links [phone] on the left and [id number] on the right medium power domes Both are out of warranty Last hearing test 11/11/2024 RESULTS: Otoscopy is unremarkable. Pure-tone air and bone conduction testing using insert earphones reveals a mild to severe sensorineural hearing loss in her left ear and a mild to severe sensorineural hearing loss in her right ear. 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 Speech rn medical surgical thresholds were obtained at 30 dB HL [...] updated hearing aid technology. She has the [facility] hearing aid benefits. Unfortunately, the [facility] does not offer the Infinio Sphere sphere Phonak products. I called and talked with Anisa at [facility]. She states they do not have a contract with [employer] to supply the spare product but can [...] away. I went through the website for [facility] and explained to her each step of the way what I was doing. She verbalized understanding. She gave consent to go ahead and sign her name electronically. She has chosen the color graphite martínez. He has signed a quote and will contact [facility] to pay for the devices so they [...] as they do have to go through [facility], I will contact patient and reschedule. She [...] Bill of sales was completed in the [facility] portal. She also signed and dated hearing instrument dispensing record. Phonak Audeo I90-R [id number] on the left and [id number] on the right 2M with a small [...] will call or come in sooner. 2. [facility] will be billed for the dispensing fees. Not available 11/29/2024 09:41:46 Plan of Treatment Reminders Order Date Submit Date Provider Last Modified By Organization Details Last Modified Time Details Appointments Establis [facility] Patient 30.EST 2024 09:00A M Jinny Maillet [...] Time Sensorineural hearing loss of bilateral ears [id number] Active 2023 Jinny Gan, AuD [address] [place] [address], [phone] , [facility] 4 15:23:59 Asymmetrical sensorineural hearing loss 503004720 Active 2024 Jinny Gan, AuD [address] [place] [address], [phone] , [facility] 5 10:58:05 Problem Notes [...] Status? Other [email or web address] Information not available 10/19/2024 How Many Times Per Week Do You Exercise? 3-4 Times Per Week [email or web address] Information not available 10/19/2024 When Did You Quit Smoking? 1988 [email or web address] Information not available 10/19/2024 What Was The Date Of Your Most Recent Tobacco Screening? 10/26/2024 [email or web address] Information not available 10/19/2024 What Is Your Relationship Status? [email or web address] Information not available 10/19/2024 Sex: Unknown Functional Status Question Answer Note LastModified by Organizat ion Details LastModified Time How many times per week do you consume alcohol? 3-4 times per week [email or web address] Information not available 10/19/2024 Do you use any illicit or recreational drugs? No [email or web address] Information not available 10/19/2024 What is your level of alcohol consumption? Occasional [email or web address] Information not available 10/19/2024 Are you currently employed? 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 Occasional [email or web address] [...] Cancer N Thyroid Problems N Stroke N COPD N Depression N Asthma N Seizures N Anemia N Heart Disease N Fibromyalgia N Osteoporosis N Kidney Disease N Gynecological HistoryNo gynecological history recorded. Obstetrics History GPAL:G 0 P 0 0 0 0 Past Encounters Encounter ID Performer Location Encounter Start Date Encounter Closed Date Diagnosis/Indication Diagnosis SNOMED-CT Code Diagnosis ICD10 Code Diagnosis Note [id number] [facility] [address] [place] [address] 06/29/2024 14:02:50 06/29/2024 15:42:52 Sensorineural hearing loss of bilateral ears 010204627 H90.3 [id number] [facility] [address] [place] [address] 11/11/2024 08:49:05 11/11/2024 11:31:03 Asymmetrical sensorineural hearing loss [id number] H90.3 [id number] Rica Hopkins [facility] [address] [place] [address] 11/29/2024 08:05:57 11/29/2024 10:09:38 Sensorineural hearing loss of bilateral ears 722137841 H90.3 Health Concerns Section Related Observation LastModified by Organization Detai ls LastModified Time None Recorded Concern Status LastModified by Organization Details LastModified Time None Recorded Advance Directives Directive Y: Payers Insurance Date Sequence Insurance Name Policy Number Policy Rodrigues Covered Member ID Rodrigues Member ID Guarantor Name 11/29/2024 1 [place]ARE[place] Ros Carrasco [id number] Ros Carrasco 11/29/2024 2 [facility] (MEDICARE REPLACEMENT/A DVANTAGE - PPO) [id number] Ros Carrasco [id number] Ros Carrasco OBGyn Episode No OBEpisode recorded.
--- OUTSIDE RECORDS SUMMARY | 2025-01-08 09:15 | XMS_ITS | Clinical Summary ---
Author Organization [facility] Address [facility] [place] [address] Care Team Providers Care Parachute Manufacturing Supervisor Name Role Phone Unavailable Primary Care Provider Unavailabl e Social History Tobacco Use Types Packs/Day Years Used Date Smoking Tobacco: Never Assessed Comments Unknown Sex and Gender Information Value Date Recorded Sex Assigned at Not on file Legal Sex Female 10:27 PM LEAFLET DISTRIBUTOR Gender Identity Not on file Sexual Orientation [...]
--- OUTSIDE RECORDS SUMMARY | 2025-01-08 09:15 | XMS_ITS | Referral Summary ---
Author Organization [facility] Address [address] [place] [address] Care Team Providers Care Hr Representative Name Role Phone Xiao Hanley MD Primary Care Provider [phone] Daisy Swartz Unavailable [phone] Allergies No known active allergies Medications losartan-hydroC [...] CDT Gender Identity Female 11/03/2021 4:27 AM DIRECTOR INTERNATIONAL Sexual Orientation Not on file Last Filed [...] on file Medical Devices Implanted Type Area Health Administrator Device Identifier Shelf Expiration Date Model / Serial / Lot Ar-9582-20 Modular Post For Augmented Mgs Baseplate 20mm Implanted:Qty: 1 on 02/13/2021 by Gerard Ham MD at [facility] Left: Shoulder [employer] [id number] 02/21/2025 AR-9582-20 / N/A / [id number] Description:[facility] ITEM# [id number] 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 200.00 NO CHARGE CODE ASSIGNED AT THIS TIME [employer] [id number] Baseplate 24mm 10 Deg Full Augment Oblique - [id number] Implanted:Qty: 1 on 02/13/2021 by Gerard Ham MD at [facility] Left: Shoulder [employer] 08/24/2025 AR-9580-24 10 [id number] [employer] [id number] s Revers 5.5mm 32mm Lock Modular Glenoid Peripheral Screw - [id number] Implanted:Qty: 1 on 02/13/2021 by Gerard Ham MD at [facility] Left: Shoulder [employer] 10/22/2024 AR-9563-32 / / [id number] [employer] Ar-9563-365.5mm 36mm Lock Peripheral Screw Bone Sterile - [id number] Implanted:Qty: 1 on 02/13/2021 by Gerard Ham MD at [facility] Left: Shoulder [employer] 09/24/2024 AR-9563-36 / / [id number] [employer] [id number] univers Revers Biosync 39mm 24mm Glenosphere Taper Baseplate - [id number] Implanted:Qty: 1 on 02/13/2021 by Gerard Ham MD at [facility] Left: Shoulder [employer] 02/21/2025 AR-9564-24 39-INF / / [id number] [employer] Ar-9503m-03 Univers Revers 39mm Shoulder +3mm Medium Insert Humeral Sterile - [id number] Implanted:Qty: 1 on 02/13/2021 by Gerard Ham MD at [facility] Left: Shoulder [employer] 06/24/2025 AR-9503M-0 3 / / [id number] [employer] [id number] nivers Revers 39mm Suture Shoulder Left +2 Cup Humeral - [id number] Implanted:Qty: 1 on 02/13/2021 by Gerard Ham MD at [facility] Left: Shoulder [employer] 01/22/2025 AR-9502F-3 9LCPC / / [id number] [employer] Ar-9501-08p [employer] Univers Revers Shoulder 8 Stem Humeral Sterile - [id number] Implanted:Qty: 1 on 02/13/2021 by Gerard Ham MD at [facility] Left: Shoulder [employer] 05/24/2025 AR-9501-08 P / / [id number] [facility] MEDICARE ADVANTAGE [place] [id number] UHC MEDICARE ADVANTAGE UHC MEDICARE ADVANTAGE Advance Directives For more information, please contact: [phone] * Full Code (Latest Code Status on File) Date Activated Date Inactivated Comments 02/13/2021 3:15 PM 02/14/2021 7:07 PM Care Teams Hr Representative Relationship Specialty Start Date End Date Xiao Hanley MD [address] [place] [address] PCP - General Internal Medicine 02/04/20 Daisy Swartz PA [address] [place] [address] Physician Car Rental Agency Manager Orthopedic Surgery 02/14/21
--- OUTSIDE RECORDS SUMMARY | 2025-01-08 09:15 | XMS_ITS | Clinical Summary ---
Author Organization [facility] Address [address] [place] [address] Care Team Providers Care Professional Bondsman Name Role Phone Xiao Hanley MD Primary Care Provider [phone] Daisy Swartz Unavailable [phone] Allergies No known active allergies Medications losartan-hydroC [...] CDT Gender Identity Female 11/03/2021 4:27 AM CUSTOMER EXPERIENCE SPECIALIST Sexual Orientation Not on file Obstetrics [...] 03/2019, 02/12/2013 Medical Devices Implanted Type Area Jewish History Professor Device Identifier Shelf Expiration Date Model / Serial / Lot Ar-9582-20 Modular Post For Augmented Mgs Baseplate 20mm Implanted:Qty: 1 on 02/13/2021 by Gerard Ham MD at [facility] Left: Shoulder [employer] C1776 02/21/2025 AR-9582-20 / N/A / [id number] Description:[facility] ITEM# [id number] 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 200.00 NO CHARGE CODE ASSIGNED AT THIS TIME [employer] [id number] Baseplate 24mm 10 Deg Full Augment Oblique - [id number] Implanted:Qty: 1 on 02/13/2021 by Gerard Ham MD at [facility] Left: Shoulder [employer] 08/24/2025 AR-9580-24 10 [id number] [employer] [id number] s Revers 5.5mm 32mm Lock Modular Glenoid Peripheral Screw - [id number] Implanted:Qty: 1 on 02/13/2021 by Gerard Ham MD at [facility] Left: Shoulder [employer] 10/22/2024 AR-9563-32 / / [id number] [employer] Ar-9563-365.5mm 36mm Lock Peripheral Screw Bone Sterile - [id number] Implanted:Qty: 1 on 02/13/2021 by Gerard Ham MD at [facility] Left: Shoulder [employer] 09/24/2024 AR-9563-36 / / [id number] [employer] Zt-[id number] univers Revers Biosync 39mm 24mm Glenosphere Taper Baseplate - [id number] Implanted:Qty: 1 on 02/13/2021 by Gerard Ham MD at [facility] Left: Shoulder [employer] 02/21/2025 AR-9564-24 39-INF / / [id number] [employer] Ar-9503m-03 Univers Revers 39mm Shoulder +3mm Medium Insert Humeral Sterile - [id number] Implanted:Qty: 1 on 02/13/2021 by Gerard Ham MD at [facility] Left: Shoulder [employer] 06/24/2025 AR-9503M-0 3 / .[id number] [employer] [id number] nivers Revers 39mm Suture Shoulder Left +2 Cup Humeral - [id number] Implanted:Qty: 1 on 02/13/2021 by Gerard Ham MD at [facility] Left: Shoulder [employer] 01/22/2025 AR-9502F-3 9LCPC / / [id number] [employer] Ar-9501-08p [employer] Univers Revers Shoulder 8 Stem Humeral Sterile - [id number] Implanted:Qty: 1 on 02/13/2021 by Gerard Ham MD at [facility] Left: Shoulder [employer] 05/24/2025 AR-9501-08 P / / [id number] Insurance [facility] MEDICARE ADVANTAGE [facility] MEDIC[facility] Address: [address] [address] [facility] MEDICARE ADVANTAGE [facility] MEDICARE Address: [address] [address] [place] [address] [facility] MEDICARE ADVANTAGE [facility] MEDICARE Address: [address] [address] [place] [address] Advance Directives For more information, please contact: [phone] * Full Code (Latest Code Status on File) Date Activated Date Inactivated Comments 02/13/2021 3:15 PM 02/14/2021 7:07 PM Care Teams Professional Bondsman Relationship Specialty Start Date End Date Xiao Hanley MD [address] [place] [address] PCP - General Internal Medicine 02/04/20 Daisy Swartz PA [address] [place] [address] Physician Crtt Orthopedic Surgery 02/14/21
== END 2025-01-08 09:11 | disposition home or self-care (01) ==
PROVIDERS: PCP Internal Medicine; Visit Provider Internal Medicine
DX: M54.50 Low back pain, unspecified (principal); M43.06 Spondylolysis, lumbar region
CPT/HCPCS: 72148

== ENCOUNTER 2025-02-07 11:02 | Outpatient (CLI) | payer MEDICARE, SELFPAY ==
--- NOTE | 2025-02-07 11:19 | ECG_ITS ---
Test Date: 2025-02-07 11:36:37 Measurements Intervals [place] Rate: 51 P: 56 CO: 180 QRS: -28 QRSD: 117 T: 263 QT: 463 QTc: 428 Interpretive Statements SINUS BRADYCARDIA INTRAVENTRICULAR CONDUCTION DELAY MODERATE T-WAVE ABNORMALITY, CONSIDER ANTEROLATERAL ISCHEMIA ABNORMAL ECG No previous ECG available for comparison Electronically Signed On 02-07-2025 11:47:59 CDT by Andrews Mondragon D.O.
[2025-02-07 11:21] LABS: Basophils Absolute Auto 0.03 K/mm3 (0.00-0.10); Basophils Percent Auto 0.4 % (0.0-1.0); Eosinophils Absolute Auto 0.11 K/mm3 (0.02-0.50); Eosinophils Percent Auto 1.4 % (1.0-6.0); Hemoglobin 13.1 g/dL (11.7-13.8); Immature Granulocyte Absolute 0.03 K/mm3 (0.00-0.00); Immature Granulocyte Percent A 0.4 % (0.0-0.0); Lymphocytes Absolute Auto 2.08 K/mm3 (1.10-4.50); Lymphocytes Percent Auto 27.2 % (18.0-42.0); Mean Corpuscular HGB Conc 32.8 g/dL (32-36); Mean Corpuscular Hemoglobin 31.7 pg (27.0-31.0); Mean Corpuscular Volume 96.9 fL (78.0-102.0); Mean Platelet Volume 8.6 fl (9.2-11.8); Monocytes Absolute Auto 0.77 K/mm3 (0.10-0.90); Monocytes Percent Auto 10.1 % (2.0-11.0); Neutrophils Absolute Auto 4.62 K/mm3 (1.70-7.20); Neutrophils Percent Auto 60.5 % (50.0-70.0); Platelet Count Result 214 K/mm3 (150-420); Red Blood Count 4.13 M/mm3 (4.20-5.40); Red Cell Distribution Width 12.3 % (11.6-14.4); White Blood Count 7.6 K/mm3 (4.8-10.8)
[2025-02-07 11:41] LABS: INR 0.9; Partial Thromboplastin Time 25.9 Sec (23.9-30.70); Prothrombin Time 10.5 Seconds (9.50-12.1)
--- OUTSIDE RECORDS SUMMARY | 2025-02-07 12:10 | XMS_ITS | Data Portability ---
Author Organization [facility], [address] [place] [address] Neurology ([place]) Address [address] [address] Care Team Providers Care Road Worker Name Role Phone SENG PERSAUD Primary Care Provider Assessment Encounter Date Assessment Date Assessment LastModified by Organization Details LastModified Time 06/29/2024 06/29/2024 Ros Carrasco was seen today for hearing aid issue. Resound links [phone] on the left and [phone] on the right medium power domes Both are out of warranty Last hearing test August 07, 2022. Today's appointment she stated the left child care associate teacher was not functioning. Visual inspection showed it to be hanging on by a thread. Rivet Spinner was replaced. Hearing aids were returned to patient. There was a $75 charge for the child care associate teacher. RECOMMENDATIONS: 1. Patient paid $75 upfront for the replacement child care associate teacher. 2. Patient will contact me regarding getting upgraded hearing aid technology and setting up an appointment for hearing test and hearing aid fitting. Not available 06/29/2024 15:25:26 11/11/2024 11/11/2024 Ros Carrasco seen for audiological evaluation. Her last hearing test was done on 08/07/2022. She presently wears binaural amplification. Resound links [phone] on the left and [id number] on the right medium power domes Both are out of warranty Last hearing test 11/11/2024 RESULTS: Otoscopy is unremarkable. Pure-tone air and bone conduction testing using insert earphones reveals a mild to severe sensorineural hearing loss in her left ear and a mild to severe sensorineural hearing loss in her right ear. 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 Speech office machine installer thresholds were obtained at 30 dB HL [...] hearing aid technology. She has the [facility] hearing aid benefits. Unfortunately, the [facility] does not offer the Infinio Sphere sphere Phonak products. I called and talked with Anisa at [facility]. She states they do not have a contract with [employer] to supply the spare product but can [...] I went through the website for [facility] and explained to her each step of the way what I was doing. She verbalized understanding. She gave consent to go ahead and sign her name electronically. She has chosen the color graphite martínez. He has signed a quote and will contact [facility] to pay for the devices so [...] they do have to go through [facility], I will contact patient and reschedule. [...] of sales was completed in the [facility] portal. She also signed and dated hearing instrument dispensing record. Phonak Audeo I90-R [id number] on the left and [id number] on the right 2M with a small [...] call or come in sooner. 2. [facility] will be billed for the dispensing fees. Not available 11/29/2024 09:41:46 Plan of Treatment Reminders Order Date Submit Date Provider Last Modified By Organization Details Last Modified Time Details Appointments Establis hed Patient 30.EST 2024 10:30A M Jinny Maillet Not available Not available [...] Time Sensorineural hearing loss of bilateral ears 776519033 Active 2023 Jinny Gan, AuD [address] [place] [address], [phone] , [facility] 4 15:23:59 Asymmetrical sensorineural hearing loss 077532357 Active 2024 Jinny Gan, AuD [address] [place] [address], [phone] , [facility] 5 10:58:05 Problem Notes None recorded. Procedures [...] SNOMED-CT Code Diagnosis ICD10 Code Diagnosis Note [id number] [facility] [address] [place] [address] 06/29/2024 14:02:50 06/29/2024 15:42:52 Sensorineural hearing loss of bilateral ears 805901508 H90.3 [id number] [facility] [address] [place] [address] 11/11/2024 08:49:05 11/11/2024 11:31:03 Asymmetrical sensorineural hearing loss 472528761 H90.3 [id number] Rica Hopkins [facility] [address] [place] [address] 11/29/2024 08:05:57 11/29/2024 10:09:38 Sensorineural hearing loss of bilateral ears 648511618 H90.3 Health Concerns Section Related Observation LastModified by Organization Detai ls LastModified Time None Recorded Concern Status LastModified by Organization Details LastModified Time None Recorded Advance Directives Directive Y: Payers Insurance Date Sequence Insurance Name Policy Number Policy Rodrigues Covered Member ID Rodrigues Member ID Guarantor Name 11/29/2024 1 [place]ARE[place] Ros Carrasco [id number] Ros Carrasco 11/29/2024 2 [facility] (MEDICARE REPLACEMENT/A DVANTAGE - PPO) [id number] Ros Carrasco [id number] Ros Carrasco OBGyn Episode No OBEpisode recorded.
--- OUTSIDE RECORDS SUMMARY | 2025-02-07 12:10 | XMS_ITS | Clinical Summary ---
Author Organization [facility] Address [address] [place] [address] Care Team Providers Care Laryngologist Name Role Phone Xiao Hanley MD Primary Care Provider [phone] Daisy Swartz Unavailable [phone] Allergies No known active allergies Medications losartan-hydroC [...] Rotator cuff arthropathy of left shoulder 2020 Encounters Date Type Department Care Team Description 01/25/2025 Telephone [facility] Scheduling [address] [place] [address] Meche Lambert from Last 3 Months Surgical History Surgery Date Site/Laterality Comments CHOLECYSTECTOMY [...] CDT Gender Identity Female 11/03/2021 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 Sexual Orientation Not on file Obstetrics History [...] 10:25 AM CDT Height 167.6 cm (5' 6) 04/16/2021 10:25 AM CDT Body Mass Index 29.86 04/16/2021 10:25 AM CDT Plan of Treatment Health Maintenance Due Date Last Done Comments Depression Screening 1940 Osteoporosis Screening-Bone Density Scan 1940 DTaP/Tdap/Td Vaccine (1 - Tdap) 1949 Hepatitis B Screening 1958 Well Visit 65+ 2003 Pneumococcal vaccine 65+ (2 of 2 - PCV) 05/28/2014 05/28/2013 Fall Risk Assessment 02/13/2022 02/13/2021 Influenza Vaccine (Season Ended) 2025 06/24/2019, 06/02/2018, 06/12/2015, Additional history exists Zoster Vaccine Completed 05/29/2019, 03/2019, 02/12/2013 Medical Devices Implanted Type Area Scorer Helper Device Identifier Shelf Expiration Date Model / Serial / Lot Ar-9582-20 Modular Post For Augmented Mgs Baseplate 20mm Implanted:Qty: 1 on 02/13/2021 by Gerard Ham MD at [facility] Left: Shoulder [employer] [id number] 02/21/2025 AR-9582-20 / N/A / [id number] Description:[facility] ITEM# [id number] 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 200.00 NO CHARGE CODE ASSIGNED AT THIS TIME [employer] [id number] Baseplate 24mm 10 Deg Full Augment Oblique - [id number] Implanted:Qty: 1 on 02/13/2021 by Gerard Ham MD at [facility] Left: Shoulder [employer] 08/24/2025 AR-9580-24 [id number] [employer] [id number] s Revers 5.5mm 32mm Lock Modular Glenoid Peripheral Screw - [id number] Implanted:Qty: 1 on 02/13/2021 by Gerard Ham MD at [facility] Left: Shoulder [employer] 10/22/2024 AR-9563-32 / / [id number] [employer] Ar-9563-365.5mm 36mm Lock Peripheral Screw Bone Sterile - [id number] Implanted:Qty: 1 on 02/13/2021 by Gerard Ham MD at [facility] Left: Shoulder [employer] 09/24/2024 AR-9563-36 / / [id number] [employer] [id number] univers [place] Biosync 39mm 24mm Glenosphere Taper Baseplate - [id number] Implanted:Qty: 1 on 02/13/2021 by Gerard Ham MD at [facility] Left: Shoulder [employer] 02/21/2025 AR-9564-24 39-INF / / [id number] [employer] Ar-9503m-03 Univers Revers 39mm Shoulder +3mm Medium Insert Humeral Sterile - [id number] Implanted:Qty: 1 on 02/13/2021 by Gerard Ham MD at [facility] Left: Shoulder [employer] 06/24/2025 AR-9503M-0 3 / / [id number] [employer] [id number] nivers Revers 39mm Suture Shoulder Left +2 Cup Humeral - [id number] Implanted:Qty: 1 on 02/13/2021 by Gerard Ham MD at [facility] Left: Shoulder [employer] 01/22/2025 AR-9502F-3 9LCPC / / [id number] [employer] Ar-9501-08p [employer] Revers Shoulder 8 Stem Humeral Sterile - [id number] Implanted:Qty: 1 on 02/13/2021 by Gerard Ham MD at [facility] Left: Shoulder [employer] 05/24/2025 AR-9501-08 P / / [id number] Insurance [facility] MEDICARE ADVANTAGE [facility] MEDICARE ADVANTAGE [facility] MEDICARE ADVANTAGE Advance Directives For more information, please contact: [phone] * Full Code (Latest Code Status on File) Date Activated Date Inactivated Comments 02/13/2021 3:15 PM 02/14/2021 7:07 PM Care Teams Laryngologist Relationship Specialty Start Date End Date Xiao Hanley MD [address] [place] [address] PCP - General Internal Medicine 02/04/20 Daisy Swartz PA [address] [place] [address] Physician Urology Teacher Orthopedic Surgery 02/14/21
--- OUTSIDE RECORDS SUMMARY | 2025-02-07 12:10 | XMS_ITS | Referral Summary ---
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 200.00 NO CHARGE CODE ASSIGNED AT THIS TIME [employer] [id number] Baseplate 24mm 10 Deg Full Augment Oblique - [id number] Implanted:Qty: 1 on 02/13/2021 by Gerard Ham MD at [facility] Left: Shoulder [employer] 08/24/2025 AR-9580-24 10 [id number] [employer] [id number] s Revers 5.5mm 32mm Lock Modular Glenoid Peripheral Screw - [id number] Implanted:Qty: 1 on 02/13/2021 by Gerard Ham MD at [facility] Left: Shoulder [employer] 10/22/2024 AR-9563-32 / / [id number] [employer] Ar-9563-365.5mm 36mm Lock Peripheral Screw Bone Sterile - [id number] Implanted:Qty: 1 on 02/13/2021 by Gerard Ham MD at [facility] Left: Shoulder [employer] 09/24/2024 AR-9563-36 / / [id number] [employer] [id number] univers Revers Biosync 39mm 24mm Glenosphere Taper Baseplate - [id number] Implanted:Qty: 1 on 02/13/2021 by Gerard Ham MD at [facility] Left: Shoulder [employer] 02/21/2025 AR-9564-24 39-INF / / [id number] [employer] Ar-9503m-03 Univers Revers 39mm Shoulder +3mm Medium Insert Humeral Sterile - [id number] Implanted:Qty: 1 on 02/13/2021 by Gerard Ham MD at [facility] Left: Shoulder [employer] 06/24/2025 AR-9503M-0 3 / / [id number] [employer] [id number] nivers Revers 39mm Suture Shoulder Left +2 Cup Humeral - [id number] Implanted:Qty: 1 on 02/13/2021 by Gerard Ham MD at [facility] Left: Shoulder [employer] 01/22/2025 AR-9502F-3 9LCPC / / [id number] [employer] Ar-9501-08p [employer] Univers Revers Shoulder 8 Stem Humeral Sterile - [id number] Implanted:Qty: 1 on 02/13/2021 by Gerard Ham MD at [facility] Left: Shoulder [employer] 05/24/2025 AR-9501-08 P / / [id number] Insurance [facility] MEDICARE ADVANTAGE [facility] MEDICARE ADVANTAGE [facility] MEDICARE ADVANTAGE Advance Directives For more information, please contact: [phone] * Full Code (Latest Code Status on File) Date Activated Date Inactivated Comments 02/13/2021 3:15 PM 02/14/2021 7:07 PM Care Teams Intellectual Property Lawyer Relationship Specialty Start Date End Date Xiao Hanley MD [address] [place] [address] PCP - General Internal Medicine 02/04/20 Daisy Swartz PA [address] [place] [address] Physician Oracle Reports Developer Orthopedic Surgery 02/14/21
[2025-02-07 12:12] LABS: Anion Gap 7 mmol/L (4-12); Blood Urea Nitrogen 21 mg/dL (7-17); Calcium 9.4 mg/dL (8.4-10.2); Carbon Dioxide 23 mmol/L (22-30); Chloride 107 mmol/L (98-107); Estimated Glomerular Filt Rate > 60; Glucose 95 mg/dL (65-110); Osmolality Calculated 287 mOsm/kg (285-295); Potassium 4.5 mmol/L (3.4-5.0); Sodium 137 mmol/L (137-145)
== END 2025-02-07 11:03 | disposition home or self-care (01) ==
LOC: CHSLAB 11:03
PROVIDERS: PCP Internal Medicine; Visit Provider Urology
DX: R31.0 Gross hematuria (principal); I35.0 Nonrheumatic aortic (valve) stenosis; I10 Essential (primary) hypertension; E78.5 Hyperlipidemia, unspecified; R00.1 Bradycardia, unspecified; R94.31 Abnormal electrocardiogram [ECG] [EKG]
CPT/HCPCS: 36415; 80048; 85025; 85610; 85730; 93005

== ENCOUNTER 2025-02-14 07:53 | Outpatient (CLI) | payer MEDICARE, SELFPAY ==
--- NOTE | 2025-02-14 07:59 | EST_ITS ---
Patient Info Name: Ros Ratliff Age: 84 years : 1940 Gender: Female Ht: 64 in Wt: 196 lbs BSA: 2.04 m2 HR: 62 bpm BP: 209 / 83 mmHg Heart Rhythm: Sinus Rhythm Technical Quality: Good Exam Date: 02/14/2025 7:59 AM Patient Status: O Admit Date: 02/14/2025 Exam Type: CA stress suraj w NM A regadenoson stress test was performed. Staff Referring Physician: Andrews Mondragon DO Attending Provider: Andrews Mondragon DO Summary 1. 1. Negative lexiscan stress test for ischemic ST changes by ECG criteria. 2. 2. Baseline hypertension. 3. 3. Nuclear scan to follow and will be reported separately. Please correlate with it. History/Risk Factors Hypertension: Yes Dyslipidemia: Yes History/Risk Factors ANNIE. Protocol: LEXISCAN Stress ECG Details Stage: REST Duration (min): 2 min : 6 sec HR (bpm): 63 SBP (mmHg): --- DBP (mmHg): --- Stage: REST Duration (min): 12 min : 1 sec HR (bpm): 63 SBP (mmHg): --- DBP (mmHg): --- Stage: STAGE 1 Duration (min): 0 min : 23 sec HR (bpm): 59 SBP (mmHg): --- DBP (mmHg): --- Stage: RECOVERY Duration (min): 0 min : 37 sec HR (bpm): 75 SBP (mmHg): --- DBP (mmHg): --- Stage: RECOVERY Duration (min): 1 min : 37 sec HR (bpm): 82 SBP (mmHg): --- DBP (mmHg): --- Stage: RECOVERY Duration (min): 2 min : 37 sec HR (bpm): 76 SBP (mmHg): 159 DBP (mmHg): 78 Stage: RECOVERY Duration (min): 3 min : 37 sec HR (bpm): 75 SBP (mmHg): 159 DBP (mmHg): 78 Stage: RECOVERY Duration (min): 4 min : 37 sec HR (bpm): 74 SBP (mmHg): 169 DBP (mmHg): 71 Stage: RECOVERY Duration (min): 5 min : 37 sec HR (bpm): 74 SBP (mmHg): 175 DBP (mmHg): 74 Stage: RECOVERY Duration (min): 6 min : 25 sec HR (bpm): 70 SBP (mmHg): 178 DBP (mmHg): 72 Rest HR: 63 bpm Peak HR: 86 bpm Rest Sys BP: 158 mmHg Peak Sys BP: 178 mmHg Max Pred HR: 134 bpm % Max Pred HR: 64 % Target HR: 114 bpm Max RPP: 15,308 bpm*mmHg BP Response: Normal blood pressure response Termination Reason: Completed Protocol Cardiac Symptoms: None Total Time: 0 min : 23 sec Rest Ventura BP: 65 mmHg Peak Ventura BP: 72 mmHg Total Dose: 0.4 mg Resting ECG Sinus rhythm, anteroseptal infarct, age indeterminate with borderline ST \T\ T-wave abnormality. Stress ECG No abnormal ST/T wave changes. Arrhythmias None. Report Signatures
--- NOTE | 2025-02-14 13:14 | WPDCARIOSTRE ---
Nuclear Stress Test INDICATIONS Indications: Preop PROCEDURE Procedure Performed: Myocardial Perf Spect-Multi Procedure: Patient underwent a lexiscan stress test and immediately was injected with 32.4 mCi of cardiolyte. Multiple tomographic images were obtained. These are of good quality. There is no perfusion defects with stress imaging. A separate resting images were obtained after patient was injected with 10.1 mCi of cardiolyte. Multiple tomographic images were obtained. These are of good quality. There is no perfusion defects with rest imaging. CONCLUSION Conclusion: 1. Normal myocardial perfusion imaging demonstrating no perfusion defects with stress or rest imaging. 2. No reversible ischemia. 3. Left ventriculogram demonstrates normal measured ejection fraction of 76% with no wall motion abnormalities. 4. TID score 1.09 is not elevated.
== END 2025-02-14 07:54 | disposition home or self-care (01) ==
PROVIDERS: PCP Internal Medicine; Visit Provider Internal Medicine Cardiovascular Disease
DX: Z01.810 Encounter for preprocedural cardiovascular examination (principal)
CPT/HCPCS: 78452; 93017; A9502; J2785

== ENCOUNTER 2025-02-23 08:10 | Outpatient (RCR) | payer MEDICARE, SELFPAY ==
--- NOTE | 2025-02-23 09:42 | OPREHPOC ---
Outpatient Therapy Plan of Care This is a Multidisciplinary Plan of Care that may contain components documented by all disciplines (PT, OT, and ST.) PT Problem 1 PT Problem #1 Knowledge Deficit PT Goal 1 Goal / Goal Update Pt to be independent and compliant with HEP Target Visit 6 PT Problem 2 PT Problem #2 Impaired Functional Mobility PT Goal 1 Goal / Goal Update Pt to report that she can stand for an hour with pain no more than 2/10 to be able to cook and garden easier Pt to walk 1100 ft during 6MWT with no more than 2 /10 pain reported. Pt to report 30% or less on Oswestry to improve quality of life Target Visit 12 PT Problem 3 PT Problem #3 Impaired Strength PT Goal 1 Goal / Goal Update Pt to have abdominal strength at least 4/5 Pt to have 4+/5 hip strength bilaterally Target Visit 12
--- NOTE | 2025-02-23 09:43 | PTOPEVAL1 ---
Assessment and note entered by JT File, PT Evaluation Information Assessment Status Evaluation Diagnosis Lumbar spinal stenosis and neurogenic claudication Other ICD-10 Condition Codes ( M48.062 PT) Onset 02/18/25 Subjective Information Pt reports that her L4-5 are slipped. Pt reports that her pain is worse with standing up. Pt reports that her pain is better with laying down and sitting down. Pt reports that the center of her low back is where it hurts. Pt denies having any pain into the legs. Pt reports that gardening and cooking has become difficult becuase she can not stand for long Reported Pain Level Pain Score 3: Self Report Assessment PT Clinical Summary Ros is an 84 y/o female presenting to skilled PT diagnosed with spinal stenosis and neurogenic claudication. The pt has deficits in abdominal/ LE strength, posture, and ambulation. Pt has goals to be able to walk longer distances, and increase standing tolerance for cooking and gardening. Pt would benfit from skilled PT to work on deficts/ functional goals to return to PLOF/ improve quality of life. Plan of Care Interventions Electrical Stimulation,Hot Pack/Cold Pack,Manual Therapy,Neuro Re-education,Patient/Caregiver Education,Therapeutic Activities,Therapeutic Exercise PT Services Indicated Yes Treatment Frequency and 2x a week for 12 visits Duration These treatments will address the objective and functional deficits as defined above. The patient will be advanced safely and appropriately in order for the patient to progress towards his/her prior level of function. Additional exercises will be introduced and as well as a comprehensive home exercise program upon discharge, if needed, ?to ensure carryover of functional gains achieved in the clinic. This treatment plan has been reviewed and agreement upon by the patient.
== END 2025-03-31 16:49 | disposition home or self-care (01) ==
LOC: CHSPT 08:10
PROVIDERS: Visit Provider Physician Assistant
DX: M48.062 Spinal stenosis, lumbar region with neurogenic claudication (principal)
CPT/HCPCS: 97014; 97110; 97112; 97161; G0283

== ENCOUNTER 2025-03-19 10:47 | Outpatient (CLI) | payer MEDICARE, SELFPAY ==
--- OUTSIDE RECORDS SUMMARY | 2025-03-19 10:50 | XMS_ITS | Clinical Summary ---
Author Organization [facility] Address [facility] [place] [address] Care Team Providers Care Cds Sales Advisor Name Role Phone Unavailable Primary Care Provider Unavailabl e Encounters Date Type Department Care Team Description 02/08/2025 11:15 AM CDT - 02/08/2025 11:59 PM CDT Hospital Encounter [facility] Radiation Oncology [address] [address] Paulo Lakhani MD Discharge Disposition: Home or Self Care (Routine Discharge) 02/08/2025 Travel from Last 3 Months Social History Tobacco Use Types Packs/Day Years Used Date Smoking Tobacco: Never Assessed Comments Unknown Sex and Gender Information Value Date Recorded Sex Assigned at Not on file 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 Gender Identity Not on file Sexual Orientation Not on file Last Filed Vital Signs Vital Sign Reading Time Taken Comments Blood Pressure 130/80 06/10/2014 9:24 AM CDT Pulse 68 06/10/2014 9:24 AM CDT Temperature - - Respiratory Rate - - Oxygen Saturation - - Inhaled Oxygen Concentration - - Weight 82.1 kg (181 lb) 06/10/2014 9:24 AM CDT Height 167.6 cm (5' 6) 03/04/2013 3:41 PM CDT Body Mass Index 29.21 03/04/2013 3:41 PM CDT Plan of Treatment Health Maintenance Due Date Last Done Comments Annual Medicare Wellness Visit 2003 Pneumococcal Vaccine: 50+ Years (2 of 2 - PCV) 05/28/2014 05/28/2013 DTaP, Tdap and Td Vaccines (2 - Td or Tdap) 01/30/2035 01/30/2025 Zoster Vaccines Completed 05/29/2019, 03/2019, 02/12/2013, Additional history exists RSV Immunization or 60+ Years Completed 08/23/2023 COVID-19 Vaccine Completed 01/30/2025, , 06/23/2023, Additional history exists Meningococcal B Vaccine Aged Out No l onger eligible based on patient's age to complete this topic Meningococcal Vaccine Aged Out No jose luis bry eligible based on patient's age to complete this topic RSV Immunizations Under 20 Months Aged Out No longer eligible based on patient's age to [place] [id number]
--- OUTSIDE RECORDS SUMMARY | 2025-03-19 10:50 | XMS_ITS | Data Portability ---
Author Organization [facility], [address] [facility] ([place]) Address [address] [place] [address] Care Team Providers Care Olericulture Professor Name Role Phone SENG PERSAUD Primary Care Provider Assessment Encounter Date Assessment Date Assessment LastModified by Organization Details LastModified Time 06/29/2024 06/29/2024 Ros Carrasco was seen today for hearing aid issue. Resound links [phone] on the left and [phone] on the right medium power domes Both are out of warranty Last hearing test August 07, 2022. Today's appointment she stated the left timber management technician was not functioning. Visual inspection showed it to be hanging on by a thread. Needle Maker was replaced. Hearing aids were returned to patient. There was a $75 charge for the timber management technician. RECOMMENDATIONS: 1. Patient paid $75 upfront for the replacement timber management technician. 2. Patient will contact me regarding getting upgraded hearing aid technology and setting up an appointment for hearing test and hearing aid fitting. Not available 06/29/2024 15:25:26 11/11/2024 11/11/2024 Ros Carrasco seen for audiological evaluation. Her last hearing test was done on 08/07/2022. She presently wears binaural amplification. Resound links [phone] on the left and [phone] on the right medium power domes Both are out of warranty Last hearing test 11/11/2024 RESULTS: Otoscopy is unremarkable. Pure-tone air and bone conduction testing using insert earphones reveals a mild to severe sensorineural hearing loss in her left ear and a mild to severe sensorineural hearing loss in her right ear. 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 Speech healthcare receptionist thresholds were obtained at 30 dB [...] updated hearing aid technology. She has the [facility] hearing aid benefits. Unfortunately, the [facility] does not offer the [employer] Sphere sphere Phonak products. I called and talked with Anisa at [facility]. She states they do not have a contract with [employer] to supply the spare product but can [...] away. I went through the website for [facility] and explained to her each step of the way what I was doing. She verbalized understanding. She gave consent to go ahead and sign her name electronically. She has chosen the color graphite martínez. He has signed a quote and will contact [facility] to pay for the devices so [...] as they do have to go through [facility], I will contact patient and reschedule. [...] Bill of sales was completed in the [facility] portal. She also signed and dated hearing instrument dispensing record. Phonak Audeo I90-R [id number] on the left and [id number] on the right 2M with a small [...] will call or come in sooner. 2. [facility] will be billed for the dispensing fees. Not available 11/29/2024 09:41:46 02/17/2025 02/17/2025 Ros Carrasco was in today for an end of trial hearing aid check. Phonak Audeo I90-R [id number] on the left and [id number] on the right 2M with a small power on the right and a small vented on the left I have removed the retention locks. Warranty expires 12/12/2027 Last hearing test 11/11/2024 He reports everything is going well. She feels she is hearing great. She does not need a adjustments on her hearing aids. Hearing aids were cleaned and checked. Listening check reveals they are functioning properly. She was given domes and wax guards at no charge. She asked me to make sure that her hearing aids were paired to her phone correctly. I checked and everything looked good. RECOMMENDATIONS: 1. Patient will return in 6 months for hearing aid check. 2. No charges for today's appointment. Not available 02/17/2025 11:41:00 Plan of Treatment Reminders Order Date Submit Date Provider Last Modified By Organization Details Last Modified Time Details Appointments None record ed. Lab None record ed. Referral None record ed. Procedures None record ed. Surgeries None record ed. Imaging None record ed. Medication Orders None record ed. Patient TargetsNo targets recorded. Patient InstructionsNo instructions recorded. Reason for Referral None Reported. Results Created Date Observation Date Name Description Value Unit Range Abnormal Flag Note LastModifiedBy Organization Detail LastModifiedTime 02/26/2007/21/2018 marcii ng/di kacyos tic resul t No observ ation record ed. [email or web address] Not Available 0 02/25/2025 01:27:36 Result Notes None recorded. Problems Name Problem SNOMED Code Status Onset Date Resolution Date Notes Provider Name and Address Organization Details Recorded Time Sensorineural hearing loss of bilateral ears 286795466 Active 2023 Jinny Gan, AuD [address] [place] [address], [phone] , [facility] 4 15:23:59 Asymmetrical sensorineural hearing loss 094435052 Active 2024 Jinny Gan, AuD [address] [place] [address], [phone] , [facility] 5 10:58:05 Problem Notes None recorded. [...] Social History Question Answer Notes LastModified by [employer] ion Details LastModified Time Tobacco Smoking Status [...] SNOMED-CT Code Diagnosis ICD10 Code Diagnosis Note [id number] Rica Hopkins [facility] 4th Audiology [address] [place] [address] 06/29/2024 14:02:50 06/29/2024 15:42:52 Sensorineural hearing loss of bilateral ears 457104697 H90.3 [id number] Rica Hopkins [facility] 4th Audiology [address] [place] [address] 11/11/2024 08:49:05 11/11/2024 11:31:03 Asymmetrical sensorineural hearing loss 601123031 H90.3 [id number] Rica Hopkins [facility] 4th Audiology [address] [place] [address] 11/29/2024 08:05:57 11/29/2024 10:09:38 Sensorineural hearing loss of bilateral ears 324002515 H90.3 [id number] Rica Hopkins [facility] 4th Audiology [address] [place] [address] 02/17/2025 11:10:42 02/17/2025 11:54:00 Asymmetrical sensorineural hearing loss 224189831 H90.3 Health Concerns Section Related Observation LastModified by Organization Detai ls LastModified Time None Recorded Concern Status LastModified by Organization Details LastModified Time None Recorded Advance Directives Directive Y: Payers Insurance Date Sequence Insurance Name Policy Number Policy Rodrigues Covered Member ID Rodrigues Member ID Guarantor Name 02/17/2025 1 [place] Ros Carrasco [id number] Ros Carrasco 02/18/2025 2 [facility] (MEDICARE REPLACEMENT/A DVANTAGE - PPO) [id number] Ros Carrasco [id number] Ros Carrasco OBGyn Episode No OBEpisode recorded.
--- OUTSIDE RECORDS SUMMARY | 2025-03-19 10:50 | XMS_ITS | Referral Summary ---
[facility] Address [address] [place] [address] Care Team Providers Care Spanish Interpreter Name Role Phone Xiao Hanley MD Primary Care Provider [phone] Daisy Swartz Unavailable [phone] Encounters Date Type Department Care Team Description 02/18/2025 Telephone [facility] Neurosurgery [address] [place] [address] Office [facility] [address] [place] [address] Shayan Calabrese PA 02/18/2025 9:13 AM CDT - 02/18/2025 11:59 PM CDT Hospital Encounter [facility] [address] [place] [phone] Discharge Disposition: Discharge to home or self care 02/18/2025 8:49 AM CDT - 02/18/2025 11:59 PM CDT Hospital Encounter [facility] Radiology [address] [place] [address] [address] [place] [phone] Lumbar pain Discharge Disposition: Discharge to home or self care 02/18/2025 10:00 AM CDT Office Visit [facility] Neurosurgery [address] [place] [address] Office [facility] [address] [place] [address] Shayan Calabrese PA Spinal stenosis, lumbar region with neurogenic claudication 02/16/2025 Orders Only [facility] Neurosurgery [address] [place] [address] Office [facility] [address] [place] [address] Shayan Calabrese PA Lumbar pain (Primary Dx) 01/25/2025 Telephone [facility] Scheduling [address] [place] [address] Meche Lambert from Last 3 Months Allergies [...] TO FIND Vitamin B 12 Ac tive cyanocobalamin/ folic acid (vitamin Q72-saxxk acid) 500-400 mcg tablet Take by mouth daily Active losartan (COZAAR) 100 mg tablet Take 1 tablet (100 mg total) by mouth daily Active solifenacin (VESIcare) 10 mg tablet Take 1 tablet (10 mg total) by mouth daily Active zinc acetate (Galzin) 50 mg (zinc) capsule Take 1 capsule by mouth daily Active acetaminophen (TYLENOL) 325 mg tablet Take 2 tablets (650 mg total) by mouth every 6 (six) hours as needed for pain Active Active Problems Problem Noted Date Diagnosed Date HTN (hypertension) 02/14/2021 Chest pain 02/14/2021 Biceps tendinitis of left upper extremity 2020 Rotator cuff arthropathy of left shoulder 2020 Social History Tobacco Use Types Packs/Day Years Used Date Smoking Tobacco: Former Cigarettes 1.5 20 1 4 - 1983 Smokeless Tobacco: Never Tobacco Cessation:Counseling Given: No Alcohol Use Standard Drinks/Week Comments Yes 0 [...] CDT Gender Identity Female 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 Sexual Orientation Not on file Last Filed Vital Signs Vital Sign Reading Time Taken Comments Blood Pressure 157/82 03/28/2021 1:50 PM CDT Pulse 65 03/28/2021 1:50 PM CDT Temperature 36.1 C (96.9 F) 02/14/2021 11:00 AM CDT Respiratory Rate 18 02/14/2021 11:00 AM CDT Oxygen Saturation 98% 02/14/2021 11:00 AM CDT Inhaled Oxygen Concentration - - Weight 86.6 kg (191 lb) 02/18/2025 9:28 AM CDT Height 162.6 cm (5' 4) 02/18/2025 9:28 AM CDT Body Mass Index 32.79 02/18/2025 9:28 AM CDT Plan of Treatment Not on file Medical Devices Implanted Type Area Hydro Operator Device Identifier Shelf Expiration Date Model / Serial / Lot Ar-9582-20 Modular Post For Augmented Mgs Baseplate 20mm Implanted:Qty: 1 on 02/13/2021 by Gerard Ham MD at [facility] Left: Shoulder [employer] [id number] 02/21/2025 AR-9582-20 / N/A / [id number] Description:[facility] ITEM# [id number] FLAGGED IS [facility] 02/14/21 COST EA. 200.00 NO CHARGE CODE ASSIGNED AT THIS TIME [employer] [id number] Baseplate 24mm 10 Deg Full Augment Oblique - [id number] Implanted:Qty: 1 on 02/13/2021 by Gerard Ham MD at [facility] Left: Shoulder [employer] 08/24/2025 AR-9580-24 [id number] [employer] [id number] s Revers 5.5mm 32mm Lock Modular Glenoid Peripheral Screw - [id number] Implanted:Qty: 1 on 02/13/2021 by Gerard Ham MD at [facility] Left: Shoulder [employer] 10/22/2024 AR-9563-32 / / [id number] [employer] Ar-9563-365.5mm 36mm Lock Peripheral Screw Bone Sterile - [id number] Implanted:Qty: 1 on 02/13/2021 by Gerard Ham MD at [facility] Left: Shoulder [employer] 09/24/2024 AR-9563-36 / / [id number] [employer] [id number] univers Revers Biosync 39mm 24mm Glenosphere Taper Baseplate - [id number] Implanted:Qty: 1 on 02/13/2021 by Gerard Ham MD at [facility] Left: Shoulder [employer] 02/21/2025 AR-9564-24 39-INF / / [id number] [employer] Ar-9503m-03 Univers Revers 39mm Shoulder +3mm Medium Insert Humeral Sterile - [id number] Implanted:Qty: 1 on 02/13/2021 by Gerard Ham MD at [facility] Left: Shoulder [employer] 06/24/2025 AR-9503M-0 3 / / [id number] [employer] [id number] nivers Revers 39mm Suture Shoulder Left +2 Cup Humeral - [id number] Implanted:Qty: 1 on 02/13/2021 by Gerard Ham MD at [facility] Left: Shoulder [employer] 01/22/2025 AR-9502F-3 9LCPC / / [id number] [employer] Ar-9501-08p [employer] Revers Shoulder 8 Stem Humeral Sterile - [id number] Implanted:Qty: 1 on 02/13/2021 by Gerard Ham MD at [facility] Left: Shoulder [employer] 05/24/2025 AR-9501-08 P / / [id number] Procedures Procedure Name Priority Date/Time Associated Diagnosis Comments XR SCOLIOSIS 6 OR MORE VIEWS Schedule Routine, Read Routine (OP Routine) 02/18/2025 9:15 AM CDT Lumbar pain NEURO MR OUTSIDE REFERENCE Routine 02/18/2025 9:13 AM CDT from Last 3 Months Results * XR Scoliosis 6 or More Views (02/18/2025 9:15 AM CDT) Anatomical Region Laterality Modality Spine N/A Computed Radiogr aphy 02/18/2025 9:22 AM CDT Impressions 02/18/2025 9:22 AM CDT 1. Grade 1 adynamic L4 and L5 anterolisthesis. 2. Mild to moderate L3-L5 degenerative disc changes with severe facet arthropathy. Electronically signed by: Esteban Gabriel D.O. Narrative 02/18/2025 9:22 AM CDT EXAMINATION: XR SCOLIOSIS 6 OR MORE VIEWS HISTORY: Lumbar Pain COMPARISON: MRI 01/08/2025 FINDINGS: Mild thoracic levoscoliosis centered at T4-T5. Mild long segment thoracolumbar levocurvature centered at T12-L1. Mild anterior sagittal imbalance, neutral coronal balance. Mild left superior pelvic obliquity. Grade 1 L4 on L5 anterolisthesis without dynamic instability. Normal vertebral body heights. Possible L3 vertebral body hemangioma. Mild to moderate degenerative disc changes L3-L5. Severe lumbar facet arthropathy. Vascular calcifications. Calcified uterine fibroid. Right upper quadrant surgical clips. Procedure Note Esteban Gabriel, DO - 02/18/2025 EXAMINATION: XR SCOLIOSIS 6 OR MORE VIEWS HISTORY: Lumbar Pain COMPARISON: MRI 01/08/2025 FINDINGS: Mild thoracic levoscoliosis centered at T4-T5. Mild long segment thoracolumbar levocurvature centered at T12-L1. Mild anterior sagittal imbalance, neutral coronal balance. Mild left superior pelvic obliquity. Grade 1 L4 on L5 anterolisthesis without dynamic instability. Normal vertebral body heights. Possible L3 vertebral body hemangioma. Mild to moderate degenerative disc changes L3-L5. Severe lumbar facet arthropathy. Vascular calcifications. Calcified uterine fibroid. Right upper quadrant surgical clips. IMPRESSION: 1. Grade 1 adynamic L4 and L5 anterolisthesis. 2. Mild to moderate L3-L5 degenerative disc changes with severe facet arthropathy. Electronically signed by: Esteban Gabriel D.O. us Shayan FRANK IMG XR PROCEDURES Jodie l Result * Neuro MR Outside Reference (02/18/2025 9:13 AM CDT) Impressions [facility] - 02/18/2025 9:13 AM CDT These images are for Reference purposes only and have not been reviewed by [facility] Radiology. There will be no report generated by a [facility] Radiologist. Narrative [facility]_P[facility] - 02/18/2025 9:13 AM CDT EXAMINATION: Images For Reference Purposes Only us Shayan FRANK IMG MRI PROCEDURES Fin al Result [facility] from Last 3 Months Insurance [facility] MEDICARE ADVANTAGE [facility] MEDICARE ADVANTAGE [employer] MEDICARE ADVANTAGE Advance Directives For more information, please contact: [phone] * Full Code (Latest Code Status on File) Date Activated Date Inactivated Comments 02/13/2021 3:15 PM 02/14/2021 7:07 PM Care Teams Spanish Interpreter Relationship Specialty Start Date End Date Xiao Hanley MD [address] [place] [address] PCP - General Internal Medicine 02/04/20 Daisy Swartz PA [address] [place] [address] Physician Hammer Runner Orthopedic Surgery 02/14/21
--- OUTSIDE RECORDS SUMMARY | 2025-03-19 10:50 | XMS_ITS | Clinical Summary ---
Author Organization [facility] Address [address] [place] [address] Care Team Providers Care Ocular Care Technologist Name Role Phone Xiao Hanley MD Primary Care Provider [phone] Daisy Swartz Unavailable [phone] Allergies No known active allergies Medications losartan-hydroC [...] 12 Ac tive cyanocobalamin/ folic acid (vitamin B66-qnzlu acid) 500-400 mcg tablet Take by mouth [...] Date Type Department Care Team Description 02/18/2025 10:00 AM CDT Office Visit [facility] Neurosurgery [facility] Medical Office Building [address] [place] [address] Shayan Calabrese PA Spinal stenosis, lumbar region with neurogenic claudication 02/18/2025 9:13 AM CDT - 02/18/2025 11:59 PM CDT Hospital Encounter [facility] [address] [place] [address] Discharge Disposition: Discharge to home or self care 02/18/2025 8:49 AM CDT - 02/18/2025 11:59 PM CDT Hospital Encounter [facility] Radiology [address] [place] [address] [address] [place] [address] Lumbar pain Discharge Disposition: Discharge to home or self care 02/18/2025 Telephone [facility] Neurosurgery [address] [place] [address] Office [facility] [address] [place] [address] Shayan Calabrese PA 02/16/2025 Orders Only [facility] Neurosurgery [address] [place] [address] Office [facility] [address] [place] [address] Shayan Calabrese PA Lumbar pain (Primary Dx) 01/25/2025 Telephone [facility] Scheduling [address] [place] [address] Meche Lambert from Last 3 Months Surgical History Surgery Date Site/Laterality Comments CHOLECYSTECTOMY SHOULDER SURGERY BREAST BIOPSY 08/25/1996 - 08/24/1997 Left Benign Medical History Medical History Date Comments Hypertension Delayed emergence from general anesthesia Sleep apnea wears cpap Lumbar stenosis Osteoarthritis Osteoporosis Family History Medical History Relation Name Comments Heart disease Father Cancer Maternal Grandfather Relation Name Status Comments Father Maternal Grandfather Social History Tobacco Use Types Packs/Day Years Used Date Smoking Tobacco: Former Cigarettes 1.5 20 1 964 - 1984 Smokeless Tobacco: Never Tobacco Cessation:Counseling Given: No [...] CDT Gender Identity Female 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 Sexual Orientation Not on file Obstetrics History [...] 02/18/2025 9:28 AM CDT Plan of Treatment Health Maintenance Due Date Last Done Comments Depression Screening 1940 Osteoporosis Screening-Bone Density Scan 1938 DTaP/Tdap/Td Vaccine (1 - Tdap) 1949 Hepatitis B Screening 1956 Well Visit 65+ 2003 Pneumococcal vaccine 65+ (2 of 2 - PCV) 05/28/2014 05/28/2013 Fall Risk Assessment 02/13/2022 02/13/2021 Influenza Vaccine (#1) 2025 9, 06/02/2018, 06/12/2015, Additional history exists Zoster Vaccine Completed 05/29/2019, 0803/2019, 02/12/2013 Medical Devices Implanted Type Area Implant Coordinator Device Identifier Shelf Expiration Date Model / Serial / Lot Ar-9582-20 Modular Post For Augmented Mgs Baseplate 20mm Implanted:Qty: 1 on 02/13/2021 by Gerard Ham MD at [facility] Left: Shoulder [employer] [id number] 02/21/2025 AR-9582-20 / N/A / [id number] Description:[facility] ITEM# [id number] 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 200.00 NO CHARGE CODE ASSIGNED AT THIS TIME [employer] [id number] Baseplate 24mm 10 Deg Full Augment Oblique - [id number] Implanted:Qty: 1 on 02/13/2021 by Gerard Ham MD at [facility] Left: Shoulder [employer] 08/24/2025 AR-9580-24 10 / / [id number] [employer] [id number] s Revers 5.5mm 32mm Lock Modular Glenoid Peripheral Screw - [id number] Implanted:Qty: 1 on 02/13/2021 by Gerard Ham MD at [facility] Left: Shoulder [employer] 10/22/2024 AR-9563-32 / / [id number] [employer] Ar-9563-365.5mm 36mm Lock Peripheral Screw Bone Sterile - [id number] Implanted:Qty: 1 on 02/13/2021 by Gerard Ham MD at [facility] Left: Shoulder [employer] 09/24/2024 AR-9563-36 / / [id number] [employer] [id number] univers Revers Biosync 39mm 24mm Glenosphere Taper Baseplate - [id number] Implanted:Qty: 1 on 02/13/2021 by Gerard Ham MD at [facility] Left: Shoulder [employer] 02/21/2025 AR-9564-24 39-INF / / [id number] [employer] Ar-9503m-03 Univers Revers 39mm Shoulder +3mm Medium Insert Humeral Sterile - [id number] Implanted:Qty: 1 on 02/13/2021 by Gerard Ham MD at [facility] Left: Shoulder [employer] 06/24/2025 AR-9503M-0 3 / .[id number] [employer] [id number] nivers Revers 39mm Suture Shoulder Left +2 Cup Humeral - [id number] Implanted:Qty: 1 on 02/13/2021 by Gerard Ham MD at [facility] Left: Shoulder [employer] 01/22/2025 AR-9502F-3 9LCPC / / [id number] [employer] Ar-9501-08p Ar[employer]rex Univers Revers Shoulder 8 Stem Humeral Sterile - [id number] Implanted:Qty: 1 on 02/13/2021 by Gerard Ham MD at [facility] Left: Shoulder [employer] 05/24/2025 AR-9501-08 P / / [id number] Procedures Procedure Name Priority Date/Time Associated Diagnosis [...] upper quadrant surgical clips. Procedure Note Esteban Gabriel DO - 02/18/2025 EXAMINATION: XR SCOLIOSIS 6 [...] arthropathy. Electronically signed by: Esteban Gabriel D.O. Shayan FRANK IMG XR PROCEDURES Jodie l Result * Neuro MR Outside Reference (02/18/2025 9:13 AM CDT) Impressions [facility] - 02/18/2025 9:13 AM CDT These images are for Reference purposes only and have not been reviewed by [facility] Radiology. There will be no report generated by a [facility] Radiologist. Narrative [facility] - 02/18/2025 9:13 AM CDT EXAMINATION: Images For Reference Purposes Only Shayan FRANK IMG MRI PROCEDURES Fin al Result [facility] from Last 3 Months Insurance [facility] MEDICARE ADVANTAGE [facility] Address: [address] [address] [place] [address] [facility] MEDICARE ADVANTAGE [facility] Address: [address] [place] [address] [employer]HC MEDICARE ADVANTAGE [facility] Address: [address] [address] [place] [address] Advance Directives For more information, please contact: [phone] * Full Code (Latest Code Status on File) Date Activated Date Inactivated Comments 02/13/2021 3:15 PM 02/14/2021 7:07 PM Care Teams Ocular Care Technologist Relationship Specialty Start Date End Date Xiao Hanley MD [address] [place] [address] PCP - General Internal Medicine 02/04/20 Daisy Sawrtz PA [address] [place] [address] Physician Round Cutter Operator Orthopedic Surgery 02/14/21
[2025-03-19 11:09] LABS: Add Urine Microscopic? YES; Appearance Urine Clear (Clear); Glucose Urine UA Negative (Negative); Leukocyte Esterase Ur 2+ LEU/UL (Negative); Nitrate Urine Negative (Negative); Specific Grav Ur 1.020 (1.010-1.020)
== END 2025-03-19 10:48 | disposition home or self-care (01) ==
LOC: CHSLAB 10:48
PROVIDERS: PCP Internal Medicine; Visit Provider Urology
DX: R31.9 Hematuria, unspecified (principal)
CPT/HCPCS: 81001

== ENCOUNTER 2025-03-22 02:21 | Day surgery (SDC) | payer MEDICARE, SELFPAY ==
[2025-02-07 09:30] VITALS: BMI 32.1
--- NOTE | 2025-02-07 09:43 | PC.NURSE ---
Report to the Outpatient Waiting Room, entrance under the green pavilion located off [facility], at time ___0900am____ on date __02/11/25 . Planned Procedure Time: _1100am .? Time changes happen often and if your time is changed the preop area will call you the afternoon before. - You and your visitor will be asked to self-screen and do not enter if you have any COVID symptoms. Please call surgeon if you need to reschedule. - A mask is optional within the hospital at this time. Patients may have clear liquids (water, carbonated beverages, clear teas, apple juice) until 3 hours prior to surgery with a maximum of 20 ounces. - No food from midnight until time of surgery and no smoking, or chewing tobacco (or any form of nicotine). No chewing gum, candy or mints. (08:00am) Take only the following medications with a SIP of water on the morning of surgery: __Metoprolol and Tylenol if needed DO NOT STOP ANY OF YOUR OTHER PRESCRIPTION MEDICATIONS PRIOR TO SURGERY EXCEPT THE FOLLOWING Hold all vitamins and supplements for 3 days per anesthesiologist.Date of last dose 02/07/25 Medications to discontinue per physician ____NONE Date to take last dose___NONE Please no make-up, nail burundian, hairspray, perfume, deodorant, or body powder the day of surgery.? No jewelry (including any body piercings) or valuables the day of surgery, leave them at home.? Please take a shower or bath the night before, or the morning of, surgery with an antibacterial soap.? (GOLD DIAL ) Wear comfortable, loose fitting clothing.? - Jewelry must be removed prior to entering the operating room.? Rings and piercings that are not removed may be cut off. - The hospital will not accept responsibility for valuables.? - Please leave all valuables, including medications, at home the day of surgery. If you are going home after surgery, a licensed tractor driver teamster must drive you home.? - NO public transportation without another adult if you receive anesthesia. - We recommend that an adult stay with you for 24 hours following discharge. - We also recommend that you do not drive, make important decision, drink alcoholic beverages, or take any drugs that were not prescribed by your health care provider for at least 24 hours after your discharge time. Follow any additional instructions given to you from your surgeon. Telephone instructions given to ___Patient and asked if any additional questions and then verbalized understanding. Patient advised to call surgeon office or pre surgery nurse liaison [phone] if any additional questions.
--- NOTE | 2025-03-18 13:24 | PC.NURSE ---
Report to the Outpatient Waiting Room, entrance under the green pavilion located off [facility], at time _10:30 AM on date __03/22/25 . Planned Procedure Time: ____12:30 PM____.? Time changes happen often and if your time is changed the preop area will call you the afternoon before. - You and your visitor will be asked to self-screen and do not enter if you have any COVID symptoms. Please call surgeon if you need to reschedule. - A mask is optional within the hospital at this time. Patients may have clear liquids (water, carbonated beverages, clear teas, apple juice) until 3 hours prior to surgery ( 9:30 AM) with a maximum of 20 ounces. - No food from midnight until time of surgery and no smoking, or chewing tobacco (or any form of nicotine). No chewing gum, candy or mints. Take only the following medications with a SIP of water on the morning of surgery: __METOPROLOL DO NOT STOP ANY OF YOUR OTHER PRESCRIPTION MEDICATIONS PRIOR TO SURGERY EXCEPT THE FOLLOWING Hold all vitamins and supplements for 3 days per anesthesiologist.LAST DOSE 03/18/25 Medications to discontinue per physician NONE Please no make-up, nail frisian, hairspray, perfume, deodorant, or body powder the day of surgery.? No jewelry (including any body piercings) or valuables the day of surgery, leave them at home.? Please take a shower or bath the night before, or the morning of, surgery with an antibacterial soap.? Wear comfortable, loose fitting clothing.? Children are encouraged to wear pajamas. - Jewelry must be removed prior to entering the operating room.? Rings and piercings that are not removed may be cut off. - The hospital will not accept responsibility for valuables.? - Please leave all valuables, including medications, at home the day of surgery. If you are going home after surgery, a licensed bulk tank driver must drive you home.? - NO public transportation without another adult if you receive anesthesia. - We recommend that an adult stay with you for 24 hours following discharge. - We also recommend that you do not drive, make important decision, drink alcoholic beverages, or take any drugs that were not prescribed by your health care provider for at least 24 hours after your discharge time. For Pediatric surgeries, we recommend two adults accompany the child home. Follow any additional instructions given to you from your surgeon. Telephone instructions given to _PATIENT and asked if any additional questions and then verbalized understanding. Patient advised to call surgeon office or pre surgery nurse liaison [phone] if any additional questions.
--- NOTE | 2025-03-18 13:40 | PC.NURSE ---
PT STATES NO CHANGE IN HEALTH HX SINCE LAST INTERVIEW 02/07/25 DID HAVE STRESS TEST DONE 02/14/25 IN EMR
[2025-03-22] VITALS (8 sets, daily range): BP systolic 123–168; BP diastolic 55–100; PULSE 58–69; RESP 14–16; TEMP 36.3–36.7; O2SAT 98–99
--- OUTSIDE RECORDS SUMMARY | 2025-03-22 02:24 | XMS_ITS | Clinical Summary ---
Author Organization [facility] Address [facility] [place] [address] Care Team Providers Care Jute Bag Clipper Name Role Phone Unavailable Primary Care Provider Unavailabl e Encounters Date Type Department Care Team Description 02/08/2025 11:15 AM CDT - 02/08/2025 11:59 PM CDT Hospital Encounter [facility] Radiation Oncology [address] [address] Paulo Lakhani MD Discharge Disposition: Home or Self Care (Routine Discharge) 02/08/2025 Travel from Last 3 Months Social History Tobacco Use Types Packs/Day Years Used Date Smoking Tobacco: Never Assessed Comments Unknown Sex and Gender Information Value Date Recorded Sex Assigned at Not on file 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
--- OUTSIDE RECORDS SUMMARY | 2025-03-22 02:24 | XMS_ITS | Data Portability ---
Author Organization [facility], [address] [facility] Neurology ([place]) Address [address] [place] [address] Care Team Providers Care Sizing Machine Operator Name Role Phone SENG PERSAUD Primary Care Provider [phone] Assessment Encounter Date Assessment Date Assessment LastModified by Organization Details LastModified Time 06/29/2024 06/29/2024 Ros Carrasco was seen today for hearing aid issue. Resound links [phone] [id number] on the left and [phone] on the right medium power domes Both are out of warranty Last hearing test August 07, 2022. Today's appointment she stated the left car unloader helper was not functioning. Visual inspection showed it to be hanging on by a thread. Concrete Stone Finishing Supervisor was replaced. Hearing aids were returned to patient. There was a $75 charge for the car unloader helper. RECOMMENDATIONS: 1. Patient paid $75 upfront for the replacement car unloader helper. 2. Patient will contact me regarding getting upgraded hearing aid technology and setting up an appointment for hearing test and hearing aid fitting. Not available 06/29/2024 15:25:26 11/11/2024 11/11/2024 Ros Carrasco seen for audiological evaluation. Her last hearing test was done on 08/07/2022. She presently wears binaural amplification. Resound links [phone] on the left and [phone] on the right medium power domes Both are out of warranty Last hearing test 11/11/2024 RESULTS: Otoscopy is unremarkable. Pure-tone air and bone conduction testing using insert earphones reveals a mild to severe sensorineural hearing loss in her left ear and a mild to severe sensorineural hearing loss in her right ear. 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 Speech temporary receptionist thresholds were obtained at 30 dB [...] updated hearing aid technology. She has the [facility] hearing aid benefits. Unfortunately, the [facility] does not offer the Infinio Sphere sphere Phonak products. I called and talked with Anisa at [facility]. She states they do not have a contract with [employer] to supply the spare product but can [...] away. I went through the website for [facility] and explained to her each step of the way what I was doing. She verbalized understanding. She gave consent to go ahead and sign her name electronically. She has chosen the color graphite martínez. He has signed a quote and will contact [facility] to pay for the devices so they [...] as they do have to go through [facility], I will contact patient and reschedule. She [...] Bill of sales was completed in the [facility] portal. She also signed and dated hearing instrument dispensing record. Phonak Audeo I90-R [id number] on the left and [id number] on the right 2M with a small [...] will call or come in sooner. 2. [facility] will be billed for the dispensing fees. Not available 11/29/2024 09:41:46 02/17/2025 02/17/2025 Ros Carrasco was in today for an end of trial hearing aid check. Phonak Audeo I90-R [id number] on the left and [id number] on the right 2M with a small [...] Time Sensorineural hearing loss of bilateral ears [id number] Active 2023 Jinny Gan, AuD [address] [place] [address], [phone] , [facility] 4 15:23:59 Asymmetrical sensorineural hearing loss 031049138 Active 2024 Jinny Gan, AuD [address] [place] [address], [phone] , [facility] 5 10:58:05 Problem Notes None recorded. Procedures [...] Social History Question Answer Notes LastModified by Takipiizat ion Details LastModified Time Tobacco Smoking Status [...] available 10/19 15:33:26 Medical History Condition Response High Blood Pressure N COPD N Depression N Anxiety Disorder N Arthritis N Cancer N Stroke N Fibromyalgia N Kidney Disease N Attention-deficit Hyperactivity Disorder N Thyroid Problems N Anemia N Diabetes N Bleeding Disorder N Hyperlipidemia N Asthma N Seizures N Heart Disease N Osteoporosis N Gynecological HistoryNo gynecological history recorded. Obstetrics History GPAL:G 0 P 0 0 0 0 Past Encounters Encounter ID Performer Location Encounter Start Date Encounter Closed Date Diagnosis/Indication Diagnosis SNOMED-CT Code Diagnosis ICD10 Code Diagnosis Note [id number] Rica Hopkins [facility] Audiology [address] [place] [address] 06/29/2024 14:02:50 06/29/2024 15:42:52 Sensorineural hearing loss of bilateral ears 066320723 H90.3 [id number] Rica Hopkins [facility] 4[facility] Audiology [address] [place] [address] 11/11/2024 08:49:05 11/11/2024 11:31:03 Asymmetrical sensorineural hearing loss 485695813 H90.3 [id number] Rica Hopkins [facility] 4[facility] Audiology [address] [place] [address] 11/29/2024 08:05:57 11/29/2024 10:09:38 Sensorineural hearing loss of bilateral ears 991634308 H90.3 [id number] Rica Hopkins [facility] 4[facility] Audiology [address] [place] [address] 02/17/2025 11:10:42 02/17/2025 11:54:00 Asymmetrical sensorineural hearing loss 132470497 H90.3 Health Concerns Section Related Observation LastModified by Organization Detai ls LastModified Time None Recorded Concern Status LastModified by Organization Details LastModified Time None Recorded Advance Directives Directive Y: Payers Insurance Date Sequence Insurance Name Policy Number Policy Rodrigues Covered Member ID Rodrigues Member ID Guarantor Name 02/17/2025 1 [place] Ros Carrasco [id number] Ros Carrasco 02/18/2025 2 [facility] (MEDICARE REPLACEMENT/A DVANTAGE - PPO) [id number] Ros Carrasco [id number] Ros Carrasco OBGyn Episode No OBEpisode recorded.
--- OUTSIDE RECORDS SUMMARY | 2025-03-22 02:24 | XMS_ITS | Clinical Summary ---
Author Organization [facility] Address [address] [place] [address] Care Team Providers Care Cognos Developer Name Role Phone Xiao Hanley MD Primary Care Provider [phone] Daisy Swartz Unavailable [phone] Allergies No known active allergies Medications losartan-hydroC [...] 12 Ac tive cyanocobalamin/ folic acid (vitamin I99-vzzqf acid) 500-400 mcg tablet Take by mouth [...] Description 02/18/2025 10:00 AM CDT Office Visit [facility] Medical Office Building [address] [place] [address] Shayan Calabrese PA Spinal stenosis, lumbar region with neurogenic claudication 02/18/2025 9:13 AM CDT - 02/18/2025 11:59 PM CDT Hospital Encounter [facility] [address] [place] [address] Discharge Disposition: Discharge to home or self care 02/18/2025 8:49 AM CDT - 02/18/2025 11:59 PM CDT Hospital Encounter [id number] Radiology [address] [place] [address] [address] [place] [phone] Lumbar pain Discharge Disposition: Discharge to home or self care 02/18/2025 Telephone [facility] [address] [place] [address] Office [facility] [address] [place] [address] Shayan Calabrese PA 02/16/2025 Orders Only [facility] [address] [place] [address] Office [facility] [address] [place] [address] Shayan Calabrese PA Lumbar pain (Primary Dx) 01/25/2025 Telephone [facility] Scheduling [address] [place] [address] Meche Lambert from Last 3 Months Surgical [...] CDT Gender Identity Female 11/03/2021 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 200.00 NO CHARGE CODE ASSIGNED AT THIS TIME [employer] Le-4216-2010 Baseplate 24mm 10 Deg Full Augment Oblique - [id number] Implanted:Qty: 1 on 02/13/2021 by Gerard Ham MD at [facility] Left: Shoulder [employer] 08/24/2025 AR-9580-24 10 / / [id number] [employer] [id number] s Revers 5.5mm 32mm Lock Modular Glenoid Peripheral Screw - [id number] Implanted:Qty: 1 on 02/13/2021 by Gerard Ham MD at [facility] Left: Shoulder [employer] 10/22/2024 AR-9563-32 / / [id number] [employer] Ar-9563-365.5mm 36mm Lock Peripheral Screw Bone Sterile - [id number] Implanted:Qty: 1 on 02/13/2021 by Gerard Ham MD at [facility] Left: Shoulder [employer] 09/24/2024 AR-9563-36 / / [id number] [employer] Vy-[id number] univers Revers Biosync 39mm 24mm Glenosphere Taper Baseplate - [id number] Implanted:Qty: 1 on 02/13/2021 by Gerard Ham MD at [facility] Left: Shoulder [employer] 02/21/2025 AR-9564-24 39-INF / / [id number] [employer] Ar-9503m-03 Univers Revers 39mm Shoulder +3mm Medium Insert Humeral Sterile - [id number] Implanted:Qty: 1 on 02/13/2021 by Gerard Ham MD at [facility] Left: Shoulder [employer] 06/24/2025 AR-9503M-0 3 / .[id number] [employer] [id number]-[id number] nivers Revers 39mm Suture Shoulder Left +2 Cup Humeral - [id number] Implanted:Qty: 1 on 02/13/2021 by Gerard Ham MD at [facility] Left: Shoulder [employer] 01/22/2025 AR-9502F-3 9LCPC / / [id number] [employer] Ar-9501-08p Arthrex Univers Revers Shoulder 8 Stem Humeral Sterile - [id number] Implanted:Qty: 1 on 02/13/2021 by Gerard Ham MD at [facility] Left: Shoulder [employer] 05/24/2025 AR-9501-08 P / / [id number] Procedures Procedure Name Priority Date/Time Associated Diagnosis [...] have not been reviewed by [facility]. There will be no report generated by a [facility] Radiologist. Narrative [facility] - 02/18/2025 9:13 AM CDT EXAMINATION: Images For Reference Purposes Only Shayan FRANK IMG MRI PROCEDURES Fin al Result [facility] from Last 3 Months Insurance [facility] MEDICARE ADVANTAGE [facility] MEDICARE ADVANTAGE [employer] MEDICARE ADVANTAGE Advance Directives For more information, please contact: [phone] * Full Code (Latest Code Status on File) Date Activated Date Inactivated Comments 02/13/2021 3:15 PM 02/14/2021 7:07 PM Care Teams Cognos Developer Relationship Specialty Start Date End Date Xiao Hanley MD [address] [place] [address] PCP - General Internal Medicine 02/04/20 Daisy Swartz PA [address] [place] [address] Physician Wireless Technician Orthopedic Surgery 02/14/21
--- OUTSIDE RECORDS SUMMARY | 2025-03-22 02:24 | XMS_ITS | Referral Summary ---
Author Organization [facility] Address [address] [place] [address] Care Team Providers Care Data Processing Manager Name Role Phone Xiao Hanley MD Primary Care Provider [phone] Daisy Swartz Unavailable [phone] Encounters Date Type Department Care Team Description 02/18/2025 Telephone [facility] Neurosurgery [address] [place] [address] Office [facility] [address] [place] [address] Shayan Calabrese PA 02/18/2025 9:13 AM CDT - 02/18/2025 11:59 PM CDT Hospital Encounter [facility] [address] [place] [id number] Discharge Disposition: Discharge to home or self care 02/18/2025 8:49 AM CDT - 02/18/2025 11:59 PM CDT Hospital Encounter [id number] Rad[facility] [address] [place] [address] [address] [place] [address] Lumbar pain Discharge Disposition: Discharge to home or self care 02/18/2025 10:00 AM CDT Office Visit [facility] [address] [place] [address] Office [facility] [address] [place] [address] Shayan Calabrese PA Spinal stenosis, lumbar region with neurogenic claudication 02/16/2025 Orders Only [facility] [address] [place] [address] Office [facility] [address] [place] [address] Shayan Calabrese PA Lumbar pain (Primary Dx) 01/25/2025 Telephone [facility] Scheduling [address] [place] [address] Meche Lambert from Last 3 Months Allergies [...] 12 Ac tive cyanocobalamin/ folic acid (vitamin O72-sooir acid) 500-400 mcg tablet Take by mouth [...] CDT Gender Identity Female 11/03/2021 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 200.00 NO CHARGE CODE ASSIGNED AT THIS TIME [employer] Sh-2276-3062 Baseplate 24mm 10 Deg Full Augment Oblique - [id number] Implanted:Qty: 1 on 02/13/2021 by Gerard Ham MD at [facility] Left: Shoulder [employer] 08/24/2025 AR-9580-24 [id number] [employer] [id number] s Revers 5.5mm 32mm Lock Modular Glenoid Peripheral Screw - [id number] Implanted:Qty: 1 on 02/13/2021 by Gerard Ham MD at [facility] Left: Shoulder [employer] 10/22/2024 AR-9563-32 / / [id number] [employer] Ar-9563-365.5mm 36mm Lock Peripheral Screw Bone Sterile - [id number] Implanted:Qty: 1 on 02/13/2021 by Gerard Ham MD at [facility] Left: Shoulder [employer] 09/24/2024 AR-9563-36 / / [id number] [employer] Kx-4335-9067-Inf univers Revers Biosync 39mm 24mm Glenosphere Taper Baseplate - [id number] Implanted:Qty: 1 on 02/13/2021 by Gerard Ham MD at [facility] Left: Shoulder [employer] 02/21/2025 AR-9564-24 39-INF / / [id number] [employer] Ar-9503m-03 Univers Revers 39mm Shoulder +3mm Medium Insert Humeral Sterile - [id number] Implanted:Qty: 1 on 02/13/2021 by Gerard Ham MD at [facility] Left: Shoulder [employer] 06/24/2025 AR-9503M-0 3 / / [id number] [employer] Kp-[id number] nivers Revers 39mm Suture Shoulder Left +2 Cup Humeral - [id number] Implanted:Qty: 1 on 02/13/2021 by Gerard Ham MD at [facility] Left: Shoulder [employer] 01/22/2025 AR-9502F-3 9LCPC / / [id number] [employer] Ar-9501-08p Arthrex Univers Revers Shoulder 8 Stem Humeral Sterile - [id number] Implanted:Qty: 1 on 02/13/2021 by Gerard Ham MD at [facility] Left: Shoulder [employer] 05/24/2025 AR-9501-08 P / / [id number] Procedures Procedure Name Priority Date/Time Associated Diagnosis [...] only and have not been reviewed by [facility]. There will be no report generated by a [facility] Radiologist. Narrative RAD_PACS[facility] - 02/18/2025 9:13 AM CDT EXAMINATION: Images For Reference Purposes Only us Shayan FRANK IMG MRI PROCEDURES Fin al Result [facility]_P[facility] from Last 3 Months Insurance [facility] MEDICARE ADVANTAGE [facility] MEDICARE Address: [address] [phone] [facility] MEDICARE ADVANTAGE [facility] MEDICARE Address: [address] [address] [place] [address] [employer]HC MEDICARE ADVANTAGE [facility] MEDICARE Address: [address] [address] [place] [address] Advance Directives For more information, please contact: [phone] * Full Code (Latest Code Status on File) Date Activated Date Inactivated Comments 02/13/2021 3:15 PM 02/14/2021 7:07 PM Care Teams Data Processing Manager Relationship Specialty Start Date End Date Xiao Hanley MD [address] [place] [address] PCP - General Internal Medicine 02/04/20 Daisy Swartz PA [address] [place] [address] Physician Non Destructive Testing Engineer Orthopedic Surgery 02/14/21
--- NOTE | 2025-03-22 07:32 | PM.IMHP ---
H&P: HPI History of Present Illness Date/Time: 03/22/25 07:32 Chief Complaint: Bladder tumor with gross hematuria Narrative: 84-year-old female who was found to have a 1.5 cm tumor along the left posterior wall of the bladder. She presents for cystoscopy with trans resection of bladder tumor. Review of Systems Review of Systems: All systems reviewed & are unremarkable except as noted in HPI and below PMFSH Past Medical History Medical History Hx of bone density study Surgical History Surgical History Hx of cholecystectomy H/O endoscopy H/O colonoscopy Family History Family History Other Diabetes mellitus Family history of malignant neoplasm Social History Social History Smoking packs per day: 1 Smoking cigarettes per day: 20.0 Years smoked: 20 Smoking pack-years: 20.00 Smoking status: Former smoker Smoking end date: 08/25/81 Alcohol intake: current Drinks per week: 5 Substance use: never Do You Feel Safe in your Home?: Yes Lack of Transportation: No Lack of Food: Never True Current Housing: I Have Housing Concerned About Future Housing: No Difficulty Paying Gas/Electric Bills: No Difficulty Paying for Meds: No Currently Unemployed: No Education: Master's Degree or Higher Difficulty w/ Childcare or Family Care: No Living arrangements: with family Additional living arrangements comments: Spiritual care concerns: No Meds Home Medications and Allergies Home Medications ?Medication ?Instructions ?Recorded ?Confirmed ?Type acetaminophen 325 mg capsule 325 mg PO Q6H PRN Pain, Mild 02/28/20 02/07/25 History (Tylenol) cholecalciferol (vitamin D3) 125 125 mcg PO DAILY 02/28/20 02/07/25 History mcg (5,000 unit) capsule (Dialyvite Vitamin D) pravastatin 10 mg tablet 10 mg PO DAILY 02/05/21 02/07/25 History metoprolol succinate 25 mg See Rx Instructions .Route 12/10/22 02/07/25 Rx tablet,extended release 24 hr .COMPLEX #90 tabs losartan 100 mg tablet 100 mg PO DAILY 04/14/23 02/07/25 History solifenacin 10 mg tablet 10 mg PO DAILY 02/07/25 02/07/25 History zinc 1 tablet PO DAILY 02/07/25 02/07/25 History Allergies Allergy/AdvReac Type Severity Reaction Status Date / Time No Known Allergies Allergy Verified 03/18/25 13:28 Exam Const: General: cooperative and comfortable Resp: Effort & Inspection: normal respiratory effort Cardio: Rhythm: regular rhythm Assessment and Plan Assessment and plan (1) Bladder tumor: Code(s): D49.4 - Neoplasm of unspecified behavior of bladder Status: Acute Assessment and Plan: Proceed with cystoscopy, transurethral resection of bladder tumor
--- NOTE | 2025-03-22 07:34 | WPDHPUPDATE1 ---
History and Physical Update Update Date/Time: 03/22/25 07:34 History and Physical has been reviewed, including an updated exam of the patient. There are NO changes in the patient's condition. Risks, benefits, and alternatives have been discussed and questions answered. Patient agrees to proceed with procedure.
[2025-03-22] MEDS: LACTATED RINGERS 1,000 ML 30 ML IV CONT (11:10)
--- NOTE | 2025-03-22 11:50 | SUR.PREOP ---
1100 PT AND SPOUSE INFORMED OF EXTENDED DELAY IN SURGERY TIME.
--- NOTE | 2025-03-22 13:21 | SUR.PREOP ---
7879 PT AND SPOUSE UPDATED ON SURGERY DELAY TIME. DENIES NEEDS AT THIS TIME.
--- NOTE | 2025-03-22 13:50 | P.PNAN_ITS ---
Anes - Initial Pre Proc Eval Procedure: Operation Date: 03/22/25 12:30 Proposed Procedures p Trans Urethral Resection Bladder Tumor - Lai Hall MD Date/Time: 03/22/25 13:50 Surgeon: Lai Hall MD Pre Op Diagnosis: gross hematuria Patient Data Age: 84 Gender: F Height: 1.63 m Weight: 87.9 kg Last Vital Signs Temp 36.7 C 03/22/25 10:46 Pulse 69 03/22/25 10:46 Resp 16 03/22/25 10:46 BP 168/71 H 03/22/25 10:46 Pulse Ox 98 03/22/25 10:46 O2 Del Method Room Air 03/22/25 10:46 Allergies Allergy/AdvReac Type Severity Reaction Status Date / Time No Known Allergies Allergy Verified 03/22/25 10:43 Home Medications ?Medication ?Instructions ?Recorded ?Confirmed ?Type acetaminophen 325 mg capsule 325 mg PO Q6H PRN Pain, Mild 02/28/20 02/07/25 History (Tylenol) cholecalciferol (vitamin D3) 125 125 mcg PO DAILY 02/28/20 03/22/25 History mcg (5,000 unit) capsule (Dialyvite Vitamin D) pravastatin 10 mg tablet 10 mg PO DAILY 02/05/21 02/07/25 History metoprolol succinate 25 mg See Rx Instructions .Route 12/10/22 03/22/25 Rx tablet,extended release 24 hr .COMPLEX #90 tabs losartan 100 mg tablet 100 mg PO DAILY 04/14/23 02/07/25 History solifenacin 10 mg tablet 10 mg PO DAILY 02/07/25 02/07/25 History zinc 1 tablet PO DAILY 02/07/25 03/22/25 History cyanocobalamin (vitamin B-12) 500 500 mcg PO DAILY 03/22/25 03/22/25 History mcg tablet (Vitamin B-12) Patient hx anesthesia problems: none Family hx anesthesia problems: none Results Review: All pre-operative results and documents have been reviewed as part of the pre- operative evaluation. [facility] Past Medical History Medical History Hx of bone density study Surgical History Surgical History Hx of cholecystectomy H/O endoscopy H/O colonoscopy Family History Family History Other Diabetes mellitus Family history of malignant neoplasm Social History Social History Smoking packs per day: 1 Smoking cigarettes per day: 20.0 Years smoked: 20 Smoking pack-years: 20.00 Smoking status: Former smoker Smoking end date: 08/25/81 Alcohol intake: current Drinks per week: 5 Substance use: never Do You Feel Safe in your Home?: Yes Lack of Transportation: No Lack of Food: Never True Current Housing: I Have Housing Concerned About Future Housing: No Difficulty Paying Gas/Electric Bills: No Difficulty Paying for Meds: No Currently Unemployed: No Education: Master's Degree or Higher Difficulty w/ Childcare or Family Care: No Living arrangements: with family Additional living arrangements comments: Spiritual care concerns: No Anes - Eval Final PreProcedure Day of Procedure 03/22/25 13:50 Patient weight: obese Heart: regular rate and rhythm Lungs: clear to auscultation Airway: Mallampati scale class II Neurological: alert and oriented Last oral intake: >/= 8 hours ASA classification: III Emergent: no Anesthetic plan: proceed Anesthesia type and monitoring: general LMA and standard monitoring Results Review: All pre-operative results and documents have been reviewed as part of the pre- operative evaluation. Informed Consent: The patient's anesthetic plan and its attendant risks and benefits were discussed with the patient/family/POA. Questions were solicited and answers provided to the satisfaction of the patient/family/POA.
--- NOTE | 2025-03-22 14:13 | S_PTH ---
PATIENT: Ros Carrasco LOC: [facility] U#:[id number] AGE/SX: 84/F ROOM: RE03/22/[address]: Lai HallMD : 1940 BED: DIS: 03/22/2025 SPEC #: [id number] RECD: 03/23/25 07:44 STATUS: NBA REQ #: [id number] KAT: 03/22/25 14:[address]: Isabel,Lai Delgadillo DEPT: [facility] Surgical RECD BY: Alisson Fields ENTERED: 03/23/25 07:44 SP TYPE: Surgical OTHR DR: Xiao Hanley MD Tissues: A - Bladder TURBT Procedures: Hematoxylin and Eosin Stain Gross and Microscopic Level 5
--- NOTE | 2025-03-22 14:16 | W.PM.PROC2 ---
Procedure Note - Detailed Date of Procedure 03/22/25 Pre-op Diagnosis gross hematuria, bladder tumor 1.5 cm Post-op Diagnosis Same Procedure Performed Cystoscopy with transurethral resection of bladder tumor 1.5 cm Surgeon Lai Hall MD Anesthesia General Description of Procedure Patient was taken to the operative suite correctly identified. Once anesthesia was obtained she was placed in the dorsal lithotomy position and prepped and draped usual sterile fashion. Twenty-four Angolan sheath was inserted. The resectoscope was used to resect the tumor which was located along the left posterior floor/wall area. It measured 1.5 cm area. Hemostasis was achieved using electrocautery. 2% viscous lidocaine was inserted into the urethra patient is taken recovery room stable condition. She will call for path results in 1 week. This completes dictation. Please send a copy of op note to my office
[2025-03-22] MEDS: ceFAZolin 2 GM in SODIUM CHLORIDE 0.9% IV 50 ML 100 ML IVPB (14:30)
[2025-03-22] MEDS: LIDOCAINE 2% GEL UROJET 10 ML PKG MUCOUS MEM (14:53)
== END 2025-03-22 16:00 | disposition home or self-care (01) ==
PROVIDERS: PCP Internal Medicine; Visit Provider Urology
PROC: 0TBB8ZZ Excision of Bladder, Via Natural or Artificial Opening Endoscopic (ICD-10-PCS; CPT 52234; principal; 2025-03-22 12:30)
DX: C67.4 Malignant neoplasm of posterior wall of bladder (principal); N30.20 Other chronic cystitis without hematuria; E66.9 Obesity, unspecified; Z68.33 Body mass index [BMI] 33.0-33.9, adult; Z90.49 Acquired absence of other specified parts of digestive tract; Z87.891 Personal history of nicotine dependence; Z80.9 Family history of malignant neoplasm, unspecified
CPT/HCPCS: 52234; 88307; J0690; J2704; J7120